=== PATIENT | female | born 1945 | race African-American/Black ===

== ENCOUNTER 2016-11-16 17:22 | Inpatient (IN) | payer OTHER ==
--- NOTE | 2016-11-16 18:43 | PDOC ---
History of Present Illness - General Chief Complaint: Chest Pain Stated Complaint: CHEST PAIN/WEAKNESS Time Seen by Provider: 11/16/16 17:48 - History of Present Illness Initial Comments: 11/16/16 20:52 Patient is a 71 year old female with a history of HTN, HLD and Arthritis who presents with right sided pain in her extremities. The patient reports severe right sided pain in her extremities worse with movement over the past 2 weeks. She has had similar symptoms in the past that responded to steroid injections. She also reports weakness on the right side of her body as well as tingling in her extremities. She reports difficulty moving her right shoulder and neck secondary to pain and reports radiation of pain from her neck down her right arm. She recently had a brain and cervical MRI performed 1 week ago which demonstrated cervical arthropathy and no signs of acute infarcts in the brain. She is scheduled to she Dr. Soto for neuro evaluation but the pain was too severe prompting her visit to the ER. She also endorses some headache. She denies fevers, chills, SOB, abdominal pain, or changes with urination or bowel movements Past History - Past Medical History Allergies/Adverse Reactions: Allergies Allergy/AdvReac Type Severity Reaction Status Date / Time No Known Allergies Allergy Verified 11/16/16 17:37 HTN: Yes Hypercholesterolemia: Yes Other medical history: vertigo - Immunization History Immunization Up to Date: Yes - Psycho/Social/Smoking Cessation Hx Suicidal Ideation: No Smoking History: Never smoked Information on smoking cessation initiated: No Hx Alcohol Use: No Drug/Substance Use Hx: No Review of Systems - Review of Systems Constitutional: No: Chills, Fever HEENTM: No: Recent change in vision, Double Vision Respiratory: No: Cough, Shortness of Breath Cardiac (ROS): No: Chest Pain, Lightheadedness, Palpitations ABD/GI: No: Constipated, Diarrhea, Nausea, Vomiting : No: Dysuria Musculoskeletal: Yes: Joint Pain, Muscle Pain, Neck Pain, Joint Stiffness Integumentary: No: Rash Neurological: Yes: Headache, Tingling, Weakness. No: Numbness *Physical Exam - Vital Signs Last Vital Signs Temp Pulse Resp BP Pulse Ox 97.9 F 99 H 18 109/65 100 11/16/16 17:24 11/16/16 17:24 11/16/16 17:24 11/16/16 17:24 11/16/16 17:24 - Physical Exam Comments: 11/16/16 21:11 General Appearance: Nourished. No Apparent Distress HEENT: EOMI, LETICIA. No Pharyngeal Erythema, Tonsillar Exudate, Tonsillar Erythema Neck: Tenderness to palpation along the right paraspinal muscles. Respiratory/Chest: Lungs Clear, Normal Breath Sounds. No Crackles, Rales, Rhonchi, Wheezing Cardiovascular: Regular Rhythm, Regular Rate. No Murmur, Gallop/S3, Gallop/S4 Gastrointestinal/Abdominal: Normal Bowel Sounds, Soft. 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 Given her physical exam and stated complaints of right sided pain and weakness worse with movement, it is likely her symptoms are due to a cervical radiculapathy. We will consult and discuss the case with Dr. Saunders with neurosurgery for evaluation. We will also send a cbc, cmp, EKG and troponin to evaluate. 11/16/16 19:22 Discussed the case with Dr. Saunders who will take a look at the patient's MRI and give us a call back. 11/16/16 19:28 Dr. Saunders came to the ED to evaluate the patient and we discussed the case. He believes that her symptoms can be attributed to spinal canal narrowing as well as the facet joint arthrapothies seen on MRI and would like to obtain a non -contrast CT. He believes that surgery is an option for her to help relieve her symptoms and is recommending admission for further management. We will contact Dr. Butt to admit the patient. 11/16/16 21:37 We discussed the case with Dr. Butt's MERCH[employer]ISE DISTRIBUTOR who accepted the admission. *DC/Admit/Observation/Transfer Diagnosis at time of Disposition: Cervical radiculopathy - Discharge Dispostion Condition at time of disposition: Guarded Admit: Yes - Referrals Referrals: Yogesh Butt MD [Primary Care Provider] -
[2016-11-16] MEDS ORDERED: morphine CARPU-JECT 4 MG/1 ML DISP.SYRIN IVPUSH ONE (18:46)
--- NOTE | 2016-11-16 19:04 | PDOC ---
Attending Attestation - Resident Resident Name: Rojas Alonso - ED Attending Attestation I have performed the following: I have examined & evaluated the patient, The case was reviewed & discussed with the resident, I agree w/resident's findings & plan, Exceptions are as noted - HPI HPI: 11/16/16 19:00 71-year-old female with history of hypertension, hyperlipidemia presents with right-sided pain. The patient reports 2 weeks of symptoms which the patient has constantly had. The patient reports she had similar symptoms several years ago which was thought to be secondary to arthritis. She had received Medrol packs and steroid injections which seemed to improve the pain. However, patient denies any injuries or trauma. States that the pain is constant and is making her feel generally weak. Occasionally the pain causes her feel short of breath and chest pain for a brief second. It is not exertional or chest tightness. The patient had an MRI last week from her primary care physician, Dr. Butt: Brain MRI of the head on November 09 demonstrates no acute infarct. Supratentorial periventricular, subcortical chronic white matter microangiopathic ischemic changes, gliosis. 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 MRI of the cervical spine demonstrates extensive degenerative cervical C2-V5. Normal signal intensity of the spinal cord. The patient was given a referral to neurology Dr. Soto. Because the pain was unbearable, the patient came into the ED for further elevation. - Physicial Exam PE: 11/16/16 19:00 GENERAL: Awake, alert, and fully oriented, in no acute distress. HEAD: No signs of trauma EYES: PERRLA, EOMI, sclera anicteric, conjunctiva clear ENT: Auricles normal inspection, hearing grossly normal, nares patent, oropharynx clear without exudates. NECK: Normal ROM, supple, no lymphadenopathy, JVD, or masses LUNGS: Breath sounds equal, clear to auscultation bilaterally. No wheezes, and no crackles HEART: Regular rate and rhythm, normal S1 and S2, no murmurs, rubs or gallops ABDOMEN: Soft, nontender, normoactive bowel sounds. No guarding, no rebound. No masses EXTREMITIES: Normal range of motion, no edema. No clubbing or cyanosis. No cords, erythema, or tenderness. TTP R arm, R trapezius, R thigh, R calf. NEUROLOGICAL: Cranial nerves II through XII intact. Normal speech, 5/5 strength upper and lower extremities. Sensation intact throughout. SKIN: Warm, Dry, normal turgor, no rashes or lesions noted. - Medical Decision Making 11/16/16 19:03 Vital Signs Temp Pulse Resp BP Pulse Ox 97.9 F 99 H 18 109/65 100 11/16/16 17:24 11/16/16 17:24 11/16/16 17:24 11/16/16 17:24 11/16/16 17:24 The patient's chest pain and shortness of breath does not appear to be cardiac or pulmonary in origin and is likely response to the patient's pain on the right side of body. The patient has significant history of arthritis and MRI demonstrates arthropathy in the neck. He may be potential that this may be muscle skeletal in origin. However, given the right-sided symptoms, we will consult neurosurgery and neurology regarding the case. If the patient demonstrates either had normal findings or uncontrollable pain, the patient should be admitted to the hospital for further evaluation.
[2016-11-16] MEDS ORDERED: morphine CARPU-JECT 4 MG/1 ML DISP.SYRIN ONE (19:06)
[2016-11-16 19:23] LABS: EOSINOPHIL 1.5 % (0-4.5); MCH 29.5 pg (25.7-33.7); MEAN CELL VOLUME 89.3 fl (80-96); RDW 13.8 % (11.6-15.6); WHITE BLOOD COUNT 7.8 K/mm3 (4.0-10.0)
[2016-11-16 19:42] LABS: INR 1.19 (0.82-1.09); PROTHROMBIN TIME (PATIENT) 13.1 SEC (9.98-11.88)
[2016-11-16 19:58] LABS: ALBUMIN 3.5 g/dl (3.4-5.0); ANION GAP 5 (8-16); BILIRUBIN,TOTAL 0.3 mg/dL (0.2-1.0); CALCIUM 8.9 mg/dL (8.5-10.1); CO2 31 mmol/L (21-32); CREATININE 1.6 mg/dL (0.55-1.02); GLUCOSE,RANDOM 98 mg/dL (74-106); SGOT/AST 16 U/L (15-37); SGPT/ALT 16 U/L (12-78); TOT PROT 6.9 g/dl (6.4-8.2)
[2016-11-16 19:59] LABS: ALK PHOS 97 U/L (45-117); CPK 79 IU/L (26-192); TROPONIN I < 0.02 ng/ml (0.00-0.05)
[2016-11-16 20:17] LABS: MEAN PLT VOLUME 11.9 fl (7.5-11.1); PLATELET COMMENT2 FEW LARGE PLTS; PLATELET COMMENT3 NO CLUMPING NOTED; PLATELET COUNT 237 K/MM3 (134-434); PLATELET ESTIMATE ADEQUATE (NORMAL)
--- NOTE | 2016-11-16 22:57 | CONSULT ---
Consult - text type - Consultation Consultation Note: Anabela Torres is a 71 year old female who presents with a chief complaint of progressive neck and upper extremity pains, particularly on the Right side. She experienced these symptoms for the first time several years ago and was diagnosed with arthritis in her neck and was treated with steroid injections. Over the past few months she has noted return and significant progression of these symptoms. She describes numbness and tingling in her hands and dropping things as well as a loss of fine motor skills. She has mechanical neck pain and all movements of her neck results in increased pain. She is able to achieve some relief from immobilization of her head and neck by lying down. She also notes some relief from heat modalities. The patient describes episodes of weakness over the Right side of her body to include both her Right arm and leg. Due to the headaches and hemibody weakness, MRI of the Brain and Cervical spine were obtained. The Brain MRI did not demonstrate any clear stroke or pathology which would account for her myelopathic symptoms, hemibody weakness or headaches. MRI Cervical demonstrates spondylosis with osteophytes and facet joint arthropathy. At C56, there is some hypertrophy of the ligamentum flavum and a disc bulge which aggravates a congenital cervical stenosis and effaces the ventral and dorsal CSF spaces and minimally deforms the contours of the cervical spinal cord. The AP diameter of the spinal canal is 9mm at this level. The Left C23 facet and several of the Right subaxial facets demonstrate significant asymmetric arthropathy which certainly could explain many of her symptoms. The patient was referred to Dr. Soto for further evaluation, however, she presented to the [facility] ER due to her pain becoming "unbearable " and being unable to wait due to severe impairment of her activities of daily living and a poor quality of life. She states on several occasions: "I cannot go on like this." I had a long discussion with the patient concerning current condition of her spine and the likely natural history. I emphasized that there is no acute emergency and that surgery is not mandatory. The spinal canal narrowing of 9mm DOES meet criteria for decompression in the setting of myelopathy, however, it is not particularly bad. Similarly, the extent of facet disease appears to be consistent with many of her mechanical/arthritic symptoms. While this facet disease does not mandate intervention, it is likely to be quite painful and likely will not spontaneously taiwo. I proposed admission for a CT of the Cervical spine to better evaluate the facets and foraminal narrowing as well as a search for other possible etiologies for her symptoms and Neurology analysis for potential for Cerebrovascular disease. The patient and family agreed with this plan of care. We obtained a CT which demonstrated multilevel spondylosis and facet arthropathy between C2 and C6. There appears to be arthrodesis of the C34 facets and uncovertebral joints. There is severe, multilevel foraminal narrowing from osteophytes. If the patient can obtain medical clearance and no other etiology for her symptoms/treatment plan can be developed, we will finalize plans to treat her with surgery. I did outline the risks, benefits and alternatives to cervical decompression and stabilization. I described focal procedures as well as those which would address multiple levels. I discussed anterior, posterior and combined approaches in great detail. Given the need to decompress and stabilize over several segments which is best treated from a dorsal approach, I feel that the best course of action would be a complete decompression and stabilization performed in one sitting. I described a treatment plan consisting of: C2-6 Laminectomies and lateral mass instrumentation. I explained that the risks included, but were not limited to: , coma, paralysis, bleeding, infection, CSF leakage possibly requiring spinal drainage or additional surgery, instrumentation migration/malfunction/malposition and failure to improve. I offered her the option of seeking another opinion or another surgeon. All questions were answered. Informed consent was obtained. I explained that she would need medical clearance prior to proceeding. The patient verbalizes an understanding of this information and asked intelligent questions.
[2016-11-17] MEDS ORDERED: morphine CARPU-JECT 2 MG/1 ML DISP.SYRIN IVPUSH ONE (05:59)
[2016-11-17] MEDS ORDERED: morphine CARPU-JECT 2 MG/1 ML DISP.SYRIN IVPUSH PRN (06:43)
[2016-11-17] MEDS ORDERED: SODIUM CHLORIDE 1,000 ML IV SCH (07:00)
[2016-11-17 08:17] LABS: BASOPHIL 0.8 % (0-2.0); EOSINOPHIL 2.3 % (0-4.5); MCH 28.7 pg (25.7-33.7); MCHC 32.1 g/dl (32.0-36.0); MEAN CELL VOLUME 89.3 fl (80-96); MEAN PLT VOLUME 11.6 fl (7.5-11.1); NEUTROPHILS 54.3 % (42.8-82.8); PLATELET COUNT 185 K/MM3 (134-434); RDW 14.2 % (11.6-15.6); WHITE BLOOD COUNT 4.5 K/mm3 (4.0-10.0)
[2016-11-17 09:13] LABS: ALBUMIN 3.3 g/dl (3.4-5.0); ALK PHOS 85 U/L (45-117); ANION GAP 7 (8-16); BILIRUBIN,TOTAL 0.6 mg/dL (0.2-1.0); CALCIUM 9.1 mg/dL (8.5-10.1); CO2 31 mmol/L (21-32); CREATININE 1.5 mg/dL (0.55-1.02); GLUCOSE,RANDOM 96 mg/dL (74-106); SGOT/AST 11 U/L (15-37); SGPT/ALT 14 U/L (12-78); TOT PROT 6.3 g/dl (6.4-8.2)
[2016-11-17] MEDS: HEPARIN NA (PORCINE) 5,000 UNITS/ML 1ML VIAL SQ SCH ×2 (10:20→23:10)
[2016-11-17 12:07] VITALS: BMI 32.0
--- NOTE | 2016-11-17 12:07 | CON.NEP ---
Consult Consult Specialty:: Nephrology ([facility]) Referred by:: Dr. Wilkinson Reason for Consultation:: ALYSON vs. CKD - History of Present Illness Chief Complaint: Right sided pain, upper and lower extremity History of Present Illness: This is a 71 year old woman with PMhx of Hypertension, Hyperlipidemia, Osteoarthritis s/p Right knee replacement who presented with right sided upper and lower extremity pain and found to have BUN/Cr of 36/1.6. Pt denies any history of kidney disease, nephrolithiasis. Has sporadic NSAID use. On ARB and HCTZ at home. No LE edema, no dysuria, flank pain, hematuria. No Recent contrast exposure. No recent abx use, skin rash. - History Source History Provided By: Patient Limitations to Obtaining History: No Limitations - Past Medical History Cardio/Vascular: Yes: HTN, Hyperlipdemia Musculoskeletal: Yes: Osteoarthritis - Alcohol/Substance Use Hx Alcohol Use: No - Smoking History Smoking history: Never smoked Have you smoked in the past 12 months: No Home Medications - Allergies Allergies/Adverse Reactions: Allergies Allergy/AdvReac Type Severity Reaction Status Date / Time No Known Allergies Allergy Verified 11/16/16 17:37 - Home Medications Home Medications: Ambulatory Orders Amlodipine Besylate 5 mg PO DAILY 11/17/16 Aspirin 81 PO DAILY 11/17/16 Atorvastatin Ca [Lipitor] 10 mg PO HS 11/17/16 Losartan-Hctz 100-25 mg Tab DAILY 11/17/16 Meclizine HCl 25 PO DAILY PRN 11/17/16 Family Disease History - Family Disease History Family History: Unremarkable Review of Systems - Review of Systems Constitutional: reports: No Symptoms Eyes: reports: No Symptoms HENT: reports: No Symptoms Neck: reports: No Symptoms Cardiovascular: reports: No Symptoms Respiratory: reports: No Symptoms Gastrointestinal: reports: No Symptoms Genitourinary: reports: No Symptoms Neurological: reports: Dizziness Endocrine: reports: No Symptoms Nephrology Consult - Height Height: 5 ft 7 in - Weight Weight: 204 lb 8 oz - BMI Body Mass Index (BMI): 32.0 - Lab Results CBC,BMP: CBC, BMP 11/17/16 07:45 11/17/16 07:45 Anion Gap: Anion Gap Anion Gap 7 (8-16) L 11/17/16 07:45 - Imaging Chest X-ray: Report Reviewed - Physical Examination Vital Signs: Vital Signs Temperature 97.7 F 11/17/16 08:46 Pulse Rate 78 11/17/16 08:46 Respiratory Rate 18 11/17/16 08:46 Blood Pressure 100/61 11/17/16 08:46 O2 Sat by Pulse Oximetry (%) 99 11/17/16 00:58 Constitutional: Yes: No Distress, Calm Eyes: Yes: Conjunctiva Clear HENT: Yes: Atraumatic, Normocephalic Neck: Yes: Tenderness Cardiovascular: Yes: Regular Rate and Rhythm Respiratory: Yes: Regular, CTA Bilaterally Gastrointestinal: Yes: Normal Bowel Sounds, Soft. 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 #ALYSON vs. CKD No prior labs available on [facility] system will get labs from PMD office Check UA, UPCR, FeNa and Renal US continue isotonic IVF for now hold ARB for now Trend BUN/Cr #Hypertension BP low/acceptable off meds Trend for now hold ARB/diuretic #Right sided pain work up as per primary and neurology avoid pain control with nsaids #Hyperlipidemia check lipid profile continue statin as needed Thank you for this referral Will follow Lukas Vickers DO Current Medications Heparin Sodium (Porcine) (Heparin -) 5,000 unit SQ BID [facility] [place] Last Admin: 11/17/16 10:20 Dose: 5,000 unit Sodium Chloride (Normal Saline -) 1,000 mls @ 75 mls/hr IV ASDIR [facility] [place] Last Admin: 11/17/16 09:00 Dose: 75 mls/hr Morphine Sulfate (Morphine Injection -) 2 mg IVPUSH Q4H PRN PRN Reason: PAIN
[2016-11-17] MEDS ORDERED: MECLIZINE HCL 25 MG TABLET (FP) PO PRN (13:13)
[2016-11-17] MEDS ORDERED: amLODIPine BESYLATE 5 MG TABLET (FP) PO SCH (13:15)
[2016-11-17] MEDS ORDERED: ASPIRIN 81 MG CHEWABLE TABLETS PO SCH (13:15)
[2016-11-17] MEDS: HYDROCHLOROTHIAZIDE 25 MG TABLET (FP) PO SCH (13:42)
[2016-11-17] MEDS: LOSARTAN POTASSIUM 50 MG TABLET (FP) PO SCH (13:42)
[2016-11-17 14:29] LABS: URINE APPEARANCE CLEAR; URINE BILIRUBIN NEGATIVE (NEGATIVE); URINE BLOOD NEGATIVE (NEGATIVE); URINE COLOR LTYELLOW; URINE GLUCOSE (UA) NEGATIVE (NEGATIVE); URINE KETONE NEGATIVE (NEGATIVE); URINE LEUK ESTERASE TRACE (NEGATIVE); URINE NITRITE NEGATIVE (NEGATIVE); URINE PROTEIN NEGATIVE (NEGATIVE); URINE UROBILINOGEN NEGATIVE mg/dL (0.2-1.0)
[2016-11-17 14:39] LABS: URINE MUCUS RARE; URINE RBC <1 /hpf (0-3); URINE WBC 3 /hpf (3-5)
[2016-11-17 15:21] LABS: URINE CREATININE 97.4 mg/dL (20-320)
--- NOTE | 2016-11-17 15:24 | HP ---
Admitting History and Physical - Primary Care Physician PCP: Yogesh Butt - Admission Chief Complaint: NUMBNESS/TINGLING/EXTREMITY WEAKNESS/RULE OUT CVA VS CERVICAL DISC DISEASE History of Present Illness: 71 YEAR OLD FEMALE WITH HTN, OLD CVA, CERVICAL DISC DISEASE PRESENTS WITH NUMBNESS/TINGLING/WEAKNESS OF EXTREMITIES. PATIENT REPORTS PROGRESSIVE WEAKNESS AND NEUROPATHY OF ARMS AND UPPER EXTREMITY. MRI FROM OCTOBER 2016 SHOWS OLD CVA AND MULTIPLE LEVELS OF CERVICAL SPINE WITH HERNIATIONS,DISC DISEASE. History Source: Patient, Medical Record - Past Medical History Cardiovascular: Yes: HTN, Hyperlipdemia Musculoskeletal: Yes: Osteoarthritis - Smoking History Smoking history: Never smoked Have you smoked in the past 12 months: No - Alcohol/Substance Use Hx Alcohol Use: No Home Medications - Allergies Allergies/Adverse Reactions: Allergies Allergy/AdvReac Type Severity Reaction Status Date / Time No Known Allergies Allergy Verified 11/16/16 17:37 - Home Medications Home Medications: Ambulatory Orders Amlodipine Besylate 5 mg PO DAILY 11/17/16 Aspirin 81 PO DAILY 11/17/16 Atorvastatin Ca [Lipitor] 10 mg PO HS 11/17/16 Losartan-Hctz 100-25 mg Tab DAILY 11/17/16 Meclizine HCl 25 PO DAILY PRN 11/17/16 Review of Systems - Review of Systems Constitutional: reports: Weakness Eyes: reports: No Symptoms HENT: reports: No Symptoms Neck: reports: No Symptoms Cardiovascular: reports: No Symptoms Respiratory: reports: No Symptoms Gastrointestinal: reports: No Symptoms Genitourinary: reports: No Symptoms Musculoskeletal: reports: Muscle Weakness Integumentary: reports: No Symptoms Neurological: reports: Pre-Existing Deficit, Weakness Endocrine: reports: No Symptoms Hematology/Lymphatic: reports: No Symptoms Psychiatric: reports: No Symptoms Physical Examination Vital Signs: Vital Signs Temperature 99.2 F 11/17/16 13:18 Pulse Rate 84 11/17/16 13:18 Respiratory Rate 18 11/17/16 13:18 Blood Pressure 105/51 11/17/16 13:18 O2 Sat by Pulse Oximetry (%) 99 11/17/16 09:00 Constitutional: Yes: Moderate Distress Eyes: Yes: WNL HENT: Yes: WNL Neck: Yes: WNL Cardiovascular: Yes: WNL Respiratory: Yes: WNL Gastrointestinal: Yes: WNL Musculoskeletal: Yes: Muscle Weakness Extremities: Yes: WNL Edema: No Peripheral Pulses WNL: Yes Integumentary: Yes: WNL Wound/Incision: Yes: Clean/Dry Neurological: Yes: Loss of Sensation, Numbness, Pre-Existing Deficit, Unsteady Gait, Weakness ...Motor Strength: LUE, LLE, RUE, RLE Psychiatric: Yes: Other Labs: CBC, BMP 11/17/16 07:45 11/17/16 07:45 Imaging - Results Cat Scan: Report Reviewed Problem List - Problems (1) Acute kidney injury Code(s): N17.9 - ACUTE KIDNEY FAILURE, UNSPECIFIED (2) CKD (chronic kidney disease) Code(s): N18.9 - CHRONIC KIDNEY DISEASE, UNSPECIFIED Qualifiers: Chronic kidney disease stage: stage 2 (mild) Qualified Code(s): N18.2 - Chronic kidney disease, stage 2 (mild) (3) Cervical radiculopathy Code(s): M54.12 - RADICULOPATHY, CERVICAL REGION (4) Combined hyperlipidemia Code(s): E78.2 - MIXED HYPERLIPIDEMIA (5) Hypertension Code(s): I10 - ESSENTIAL (PRIMARY) HYPERTENSION Qualifiers: Hypertension type: essential hypertension Qualified Code(s): I10 - Essential (primary) hypertension Assessment/Plan PATIENT IS MEDICALLY CLEARED FOR CERVICAL SPINE SURGERY NO HISTORY OF CARDIAC DISEASE BP IS LOW IVF GIVEN HOLD BP MEDS FOR SBP LESS THAN 110MM/HG OR DBP LESS THAN 60MM/HG SNF AND PT [facility] ON DISCHARGE
[2016-11-17] MEDS ORDERED: CYCLOBENZAPRINE HCL 10 MG TABLET (FP) PO PRN (16:21)
--- NOTE | 2016-11-17 17:00 | EKG ---
Test Reason : Blood Pressure : / mmHG Vent. Rate : 080 BPM Atrial Rate : 080 BPM P-R Int : 134 ms QRS Dur : 104 ms QT Int : 376 ms P-R-T Axes : 073 026 035 degrees QTc Int : 433 ms NORMAL SINUS RHYTHM BIATRIAL ENLARGEMENT INCOMPLETE RIGHT BUNDLE BRANCH BLOCK ABNORMAL ECG WHEN COMPARED WITH ECG OF 16-NOV-2016 17:35, NO SIGNIFICANT CHANGE WAS FOUND Confirmed by SANDOR PADRON MD ([id number]) on 11/17/2016 5:00:29 PM Also confirmed by SANDOR PADRON MD ([id number]) on 11/17/2016 5:03:09 PM Referred By: LA ALSTON Confirmed By:SANDOR PADRON MD
--- NOTE | 2016-11-17 17:47 | EKG ---
Test Reason : Blood Pressure : / mmHG Vent. Rate : 094 BPM Atrial Rate : 094 BPM P-R Int : 126 ms QRS Dur : 090 ms QT Int : 354 ms P-R-T Axes : 074 -03 056 degrees QTc Int : 442 ms NORMAL SINUS RHYTHM BIATRIAL ENLARGEMENT RSR' OR QR PATTERN IN V1 SUGGESTS RIGHT VENTRICULAR CONDUCTION DELAY ABNORMAL ECG NO PREVIOUS ECGS AVAILABLE REPEAT EKG IF CLINICALLY INDICATED Confirmed by SANDOR PADRON MD ([id number]) on 11/17/2016 5:47:03 PM Referred By: Confirmed By:SANDOR PADRON MD
--- NOTE | 2016-11-17 19:33 | CONSULT ---
Consult - text type - Consultation Consultation Note: NEUROLOGY CONSULTATION is greatly appreciated: Events reviewed. Patient exsamined in the presence of two of her daughters who provided additional history. This 71 yo RH woman with h/o HTN, OA and Chol on norvasc, losartan, HCTZ, and Lipitor. s/p B/L TKR's. Walking is better but nocturnal knee pains are unchanged. Episodic headaches for most of her adult life. These have increased in frequency and now occur almost daily. Usually Right hemicranial headaches involving synagogue and neck with throbbing neck pain towards the Left shoulder. Sometimes right-sided. +Nausea (almost daily), photophobia, phonophobia and dizziness. + FH of headaches in all 3 daughters. Chronic migrating pains and paresthesia in both arms and both legs, worst at night, interrupting sleep. Daughters have this as well. For the last few weeks Right shoulder pains are particularly severe at night and are associated with numbness and tingling in the arm and hand. Now admitted with right-sided chest pains that have improved. Recent MRI of the brain is normal. MRI of the Cervical spine shows moderate, diffuse spondylitic changes. MEGHANA: Normal neck ROM. No bruits. Cor: Reg. NEURO: MS/speech: Normal CN II-XII: normal Motor: No drift. Formal muscle testing reveals normal strength throughout. Normal reflexes except AJ's. Toes downgoing. Coord: Normal Sensory Normal. Gait: Antalgic to the knees. IMP: Essentially normal neurological exam. No clinical evidence for cervical radiculopathy. Migraine headaches are the probable cause of the throbbing neck pain. 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 SUGGEST: No surgery. Check Fe++, TIBC, Ferritin. D/C flexoril, mecliziane, gabapentin, narcotics. Check orthostatic BP's. Begin nadolol 40 mg qd for migraine prophylaxis and empirically d/ c norvasc. Begin pramipexole .125 mg qHS x 2 days then .25 q hS Neuro f/u as out patient. Thank you very much, Gerry Soto MD
[2016-11-17] MEDS ORDERED: PT OWN MED DRAWER 7, Y5N ONE (20:51)
[2016-11-17] MEDS ORDERED: GABAPENTIN 100 MG CAPSULE (FP) PO SCH (22:00)
[2016-11-17] MEDS ORDERED: ATORVASTATIN CA 10 MG TABLET (FP) PO SCH (22:00)
[2016-11-17] MEDS ORDERED: PRAMIPEXOLE DIHYDROCHLORIDE 0.125 MG TABLET PO SCH (22:00)
[2016-11-18 08:06] LABS: BASOPHIL 0.8 % (0-2.0); EOSINOPHIL 2.9 % (0-4.5); MCHC 32.6 g/dl (32.0-36.0); MEAN CELL VOLUME 88.8 fl (80-96); MEAN PLT VOLUME 10.9 fl (7.5-11.1); NEUTROPHILS 48.8 % (42.8-82.8); PLATELET COUNT 173 K/MM3 (134-434); WHITE BLOOD COUNT 3.5 K/mm3 (4.0-10.0)
[2016-11-18 08:18] LABS: ALBUMIN 3.2 g/dl (3.4-5.0); ANION GAP 6 (8-16); CALCIUM 8.4 mg/dL (8.5-10.1); CO2 31 mmol/L (21-32); GLUCOSE,RANDOM 96 mg/dL (74-106); MAGNESIUM 2.5 mg/dL (1.8-2.4); SGOT/AST 9 U/L (15-37)
[2016-11-18 08:20] LABS: ALK PHOS 81 U/L (45-117); BILIRUBIN,TOTAL 0.8 mg/dL (0.2-1.0); SGPT/ALT 13 U/L (12-78); TOT PROT 6.2 g/dl (6.4-8.2)
[2016-11-18] MEDS ORDERED: NADOLOL 40 MG TABLET (FP) PO SCH (10:00)
--- NOTE | 2016-11-18 10:18 | DS ---
Physical Examination Vital Signs: Vital Signs Temperature 98.3 F 11/18/16 06:00 Pulse Rate 73 11/18/16 06:00 Respiratory Rate 18 11/18/16 06:00 Blood Pressure 110/66 11/18/16 06:00 O2 Sat by Pulse Oximetry (%) 98 11/17/16 21:00 Constitutional: Yes: Mild Distress Eyes: Yes: WNL HENT: Yes: WNL Neck: Yes: WNL Cardiovascular: Yes: WNL Respiratory: Yes: WNL Gastrointestinal: Yes: WNL Renal/: Yes: WNL Musculoskeletal: Yes: Back Pain, Muscle Weakness Extremities: Yes: WNL Edema: No Peripheral Pulses WNL: Yes Integumentary: Yes: WNL Wound/Incision: Yes: Clean/Dry Neurological: Yes: Paresthesia ...Motor Strength: LUE, RUE Psychiatric: Yes: WNL Labs: CBC, BMP 11/18/16 06:50 11/18/16 06:50 Discharge Summary Reason For Visit: CERVICAL RADICULOPATHY Current Active Problems Acute kidney injury (Acute) CKD (chronic kidney disease) (Acute) Cervical radiculopathy (Acute) Combined hyperlipidemia (Acute) Hypertension (Acute) Procedures: Principal: CT SCAN Other Procedures: LABS Hospital Course: ADMITTED WITH ACUTE NEUROPATHY CERVICAL DISC DISEASE, TREATED WITH PAIN MEDS, IV AND PO, IVF, SEEN BY NEUROLOGU AND NEUROSURGERY, PATIENT HAS OPTED FOR A MORE CONSERVATIVE APPROACH FOR TREATMENT, NO SURGERY AT THIS TIME, F/U WITH DR DILLARD TODAY OR TOMORROW OUTPATIENT. Condition: Stable - Instructions Diet, Activity, Other Instructions: LOW SODIUM SEE DR DILLARD TODAY OR TOMORROW DR BUTT IN 1 WEEK Referrals: Yogesh Butt MD [Primary Care Provider] - Disposition: VNS/HOME HEALTH CARE - Home Medications Comprehensive Discharge Medication List: Ambulatory Orders Amlodipine Besylate 5 mg PO DAILY 11/17/16 Aspirin 81 PO DAILY 11/17/16 Atorvastatin Ca [Lipitor] 10 mg PO HS 11/17/16 Losartan-Hctz 100-25 mg Tab DAILY 11/17/16 Meclizine HCl 25 PO DAILY PRN 11/17/16 Amlodipine Besylate [Norvasc -] 5 mg PO DAILY tablet 11/18/16 Aspirin [ASA -] 81 mg PO DAILY tab.chew 11/18/16 Atorvastatin Ca [Lipitor] 10 mg PO HS tablet 11/18/16 Meclizine HCl [Antivert -] 25 mg PO DAILY PRN #0 tablet MDD 3 11/18/16 Nadolol [Corgard -] 40 mg PO DAILY #60 tablet 11/18/16 Pramipexole Dihydrochloride [Mirapex -] 0.125 mg PO HS #30 tablet 11/18/16
[2016-11-18 10:24] LABS: CHOLESTEROL 160 mg/dL (50-200)
[2016-11-18] MEDS ORDERED: PT OWN MED DRAWER 7, Y5N ONE (10:59)
[2016-11-18 11:05] VITALS: BP 120/71; TEMP 98.6
[2016-11-18 11:08] VITALS: PULSE 80
[2016-11-18] MEDS: HYDROCHLOROTHIAZIDE 25 MG TABLET (FP) PO SCH (11:09)
[2016-11-18] MEDS: HEPARIN NA (PORCINE) 5,000 UNITS/ML 1ML VIAL SQ SCH (11:09)
[2016-11-18] MEDS: LOSARTAN POTASSIUM 50 MG TABLET (FP) PO SCH (11:09)
== END 2016-11-18 13:47 | disposition home health service (06) | DRG 552 ==
LOC: JER 17:22 → JERBED 21:08 → J5S 23:03
PROVIDERS: ADMIT Family Medicine; ATTEND Family Medicine
DX: M47.892 Other spondylosis, cervical region (principal); N17.9 Acute kidney failure, unspecified; M54.12 Radiculopathy, cervical region; I10 Essential (primary) hypertension; M17.11 Unilateral primary osteoarthritis, right knee; I12.9 Hypertensive chronic kidney disease with stage 1 through stage 4 chronic kidney disease, or unspecified chronic kidney disease; N18.9 Chronic kidney disease, unspecified; E78.2 Mixed hyperlipidemia; G43.809 Other migraine, not intractable, without status migrainosus; G62.9 Polyneuropathy, unspecified; M50.30 Other cervical disc degeneration, unspecified cervical region; G25.81 Restless legs syndrome; Z86.73 Personal history of transient ischemic attack (TIA), and cerebral infarction without residual deficits; Z96.651 Presence of right artificial knee joint
CPT/HCPCS: 36415; 71020-TC; 72125-TC; 76775-TC; 80053; 80061; 81003; 81015; 82436; 82570; 83036; 83721; 83735; 84100; 84133; 84156; 84300; 84484; 84540; 85025; 85610; 85651; 86140; 93005; 93010; 93306-TC; 99282-25; J1644

== ENCOUNTER 2017-02-19 11:36 | Inpatient (IN) | payer OTHER ==
[2017-02-19 11:47] VITALS: BMI 33.3
--- NOTE | 2017-02-19 13:09 | PDOC ---
History of Present Illness - General History Source: Patient - History of Present Illness Initial Comments: 02/19/17 16:27 The patient is a 71 year old female, with a significant past medical history of hypertension, hyperlipidemia, cervical ridiculopathy, vertigo, CKD, and chronic constipation, who presents to the emergency department with chest pain for approximately 2 weeks. The patient reports right sided chest pain radiating into her right shoulder, biceps, and right upper back. Patient reports her pain is exacerbated with motion and states it is difficult to put on clothing or sleep at night secondary to pain. Patient reports pain worsened with exertion but denies any diaphoresis, palpitations, numbness, tingling, or lower extremity edema. Patient reports she has had this pain intermittently for 4 months, but it has worsened during the past 2 weeks. Patient states she was at Dr. White office earlier today for evaluation of the pain, but left to the ER before she was seen, because she could not tolerate the pain. Patient reports taking Tylenol and meloxicam with minimal relief of symptoms. She had MRI and CT of her cervical spine in the past to evaluate this pain. She denies any fever , chills, cough, SOB, headache, dizziness, lightheadedness, ear ringing, or changes in vision. She denies any abdominal pain, nausea, vomiting, diarrhea, constipation, or urinary sxs. She denies any recent travel or sick contacts. Allergies: NKDA Past Surgical History: None reported Social History: Occasional ETOH use. Non smoker. No recreational drug use. PCP: Dr. Butt <Sherry Bush - Last Filed: 02/19/17 16:28> <Mark Buckley - Last Filed: 02/19/17 19:59> - General Chief Complaint: Chest Pain Stated Complaint: RT SIDE PAIN Past History <Sherry Bush - Last Filed: 02/19/17 16:28> - Past Medical History Anemia: No Asthma: No Cancer: No Cardiac Disorders: No CVA: No COPD: No CHF: No Dementia: No Diabetes: No GI Disorders: No Disorders: No HTN: Yes Hypercholesterolemia: Yes Seizures: No - Immunization History Immunization Up to Date: Yes - Suicide/Smoking/Psychosocial Hx Smoking History: Never smoked Have you smoked in the past 12 months: No Hx Alcohol Use: No (QUIT 2 YEARS AGO) Drug/Substance Use Hx: No Substance Use Type: None <Mark Buckley - Last Filed: 02/19/17 19:59> - Past Medical History Allergies/Adverse Reactions: Allergies Allergy/AdvReac Type Severity Reaction Status Date / Time No Known Allergies Allergy Verified 02/19/17 11:47 Home Medications: Ambulatory Orders Amlodipine Besylate 5 mg PO DAILY 11/17/16 Atorvastatin Ca [Lipitor] 10 mg PO HS 11/17/16 Losartan-Hctz 100-25 mg Tab DAILY 11/17/16 Aspirin [ASA -] 81 mg PO DAILY tab.chew 11/18/16 Meclizine HCl [Antivert -] 25 mg PO DAILY PRN #0 tablet MDD 3 11/18/16 Review of Systems - Review of Systems Able to Perform ROS?: Yes Comments:: 02/19/17 16:27 GENERAL/CONSTITUTIONAL: Yes right sided weakness. No fever or chills. HEAD, EYES, EARS, NOSE AND THROAT: No change in vision. No ear pain or discharge. No sore throat. GASTROINTESTINAL: No nausea, vomiting, diarrhea or constipation. GENITOURINARY: No dysuria, frequency, or change in urination. CARDIOVASCULAR: Yes chest pain and shortness of breath. RESPIRATORY: No cough, wheezing, or hemoptysis. MUSCULOSKELETAL: Yes right sided neck/shoulder/chest/upper back pain. No other joint or muscle swelling or pain. SKIN: No rash NEUROLOGIC: Yes right sided weakness/pain. No headache, vertigo, loss of consciousness, numbness or tingling. ENDOCRINE: No increased thirst. No abnormal weight change. HEMATOLOGIC/LYMPHATIC: No anemia, easy bleeding, or history of blood clots. ALLERGIC/IMMUNOLOGIC: No hives or skin allergy. <Sherry Bush - Last Filed: 02/19/17 16:28> *Physical Exam - Vital Signs Last Vital Signs Temp Pulse Resp BP Pulse Ox 98.8 F 66 18 147/89 98 02/19/17 11:45 02/19/17 11:45 02/19/17 11:45 02/19/17 11:45 02/19/17 11:45 - Physical Exam Comments: 02/19/17 16:27 GENERAL: Awake, alert, and fully oriented, in no acute distress HEAD: No signs of trauma EYES: PERRLA, EOMI, sclera anicteric, conjunctiva clear ENT: Auricles normal inspection, hearing grossly normal, nares patent, oropharynx clear without exudates. Moist mucosa NECK: Normal ROM, supple, no lymphadenopathy, JVD, or masses LUNGS: Breath sounds equal, clear to auscultation bilaterally. No wheezes, and no crackles HEART: Regular rate and rhythm, normal S1 and S2, no murmurs, rubs or gallops ABDOMEN: Soft, nontender, normoactive bowel sounds. No guarding, no rebound. No masses EXTREMITIES: Tenderness to palpation to the right chest wall and trapezoid region, pain with active/passive range of motion, but able to fully range her right arm. Normal range of motion at the remainder of the extremities, no edema. No clubbing or cyanosis. No cords, erythema, or tenderness BACK: No midline spinal tenderness in cervical/thoracic/lumbar region NEUROLOGICAL: Normal speech, cranial nerves intact, negative pronator drift, 5/ 5 strength in all 4 extremities, normal sensation to light touch in all 4 extremities, normal cerebellar exam, normal gait, normal reflexes and tone SKIN: Warm, Dry, normal turgor, no rashes or lesions noted. <Bush,Giomilsy - Last Filed: 02/19/17 16:28> - Vital Signs Last Vital Signs Temp Pulse Resp BP Pulse Ox 98.8 F 66 18 147/89 98 02/19/17 11:45 02/19/17 11:45 02/19/17 11:45 02/19/17 11:45 02/19/17 11:45 <Mark Buckley - Last Filed: 02/19/17 19:59> Heart Score/ECG Review - History History: Slightly suspicious - Electrocardiogram EKG: Non specific repolarization disturbance - Age Age: >/= 65 - Risk Factors Risk Factors Heart Score: Yes Hx Hypercholesterolemia, Yes Hx Hypertension, Yes Hx Obesity Based on the list above the patient has:: >/=3 risk factors or Hx atherosclerotic disease - Troponin Troponin: </= normal limit - Score Heart Score - Total: 5 <Mark Buckley - Last Filed: 02/19/17 19:59> ED Treatment Course - LABORATORY CBC & Chemistry Diagram: 02/19/17 13:41 02/19/17 13:41 - ADDITIONAL ORDERS Additional order review: Laboratory Results 02/19/17 02/19/17 02/19/17 13:41 13:41 13:41 Sodium 145 Potassium 3.7 Chloride 105 Carbon Dioxide 31 Anion Gap 9 BUN 10 D Creatinine 0.6 D Creat Clearance w eGFR > 60 Random Glucose 105 Calcium 8.8 Magnesium 2.2 Total Bilirubin 0.5 D AST 13 L D ALT 19 D Alkaline Phosphatase 87 Troponin I < 0.02 B-Natriuretic Peptide 379.77 H Total Protein 7.0 Albumin 3.8 02/19/17 13:41 RBC 4.02 MCV 90.8 MCHC 32.2 RDW 13.8 MPV 11.6 H Neutrophils % 56.4 Lymphocytes % 33.9 Monocytes % 7.4 Eosinophils % 1.6 Basophils % 0.7 - RADIOLOGY Radiograph Interpretation: 02/19/17 14:38 EXAM: CXR INTERPRETED BY: Dr. Vidal REVIEWED BY: Dr. Buckley IMPRESSION: No consolidation or focal opacity to suggest pneumonia. No evidence of pulmonary vascular congestion or pleural effusion. Please correlate clinically. <Sherry Bush - Last Filed: 02/19/17 16:28> - LABORATORY CBC & Chemistry Diagram: 02/19/17 13:41 02/19/17 13:41 <Mark Buckley - Last Filed: 02/19/17 19:59> Medical Decision Making - Medical Decision Making 02/19/17 14:37 First call placed to Dr. Butt at 14:37. Awaiting call back. Second call placed to Dr. Butt at 15:10. Awaiting call back. Case discussed with Dr. Butt at 15:20. Requested Dr. Arellano for a consult. First call placed to Dr. Arellano at 15:24. Awaiting call back. Case discussed with Dr. Arellano at 15:29. <Sherry Bush - Last Filed: 02/19/17 16:28> - Medical Decision Making 02/19/17 15:23 71-year-old female multiple medical problems presents with right-sided chest pain. Vitals are unremarkable. On exam, pain is reproducible. Although pain is likely musculoskeletal, may be cervical radiculopathy however the patient does have ACS risk factors. First set of labs including troponin is negative. Chest x -ray has no acute findings. Patient has been given Toradol for pain with minimal relief. Case discussed with Dr. Butt, given the patient's heart score is 5, we will admit for ACS evaluation, possible stress test, as well as for pain control. Will discuss case with neurosurgeon Dr. Elena for possible injecion/surgery , awaiting a call back Case discussed in detail with admitting physician including history, physical exam and ancillary studies. Admitting physician has assumed care for the patient, will follow all pending diagnostics and will complete the evaluation and treatment. <Mark Buckley - Last Filed: 02/19/17 19:59> *DC/Admit/Observation/Transfer - Attestations Scribe Attestion: 02/19/17 14:40 Documentation prepared by Sherry Bush, acting as program medical director for Mark Buckley MD. <Sherry Bush - Last Filed: 02/19/17 16:28> - Discharge Dispostion Admit: Yes - Attestations Physician Attestion: 02/19/17 15:26 I, Dr. Mark Buckley MD, attest that this document has been prepared under my direction and personally reviewed by me in its entirety. I further attest, that it accurately reflects all work, treatment, procedures and medical decision -making performed by me. <Mark Buckley - Last Filed: 02/19/17 19:59> Diagnosis at time of Disposition: Cervical radiculopathy - Discharge Dispostion Condition at time of disposition: Stable
[2017-02-19 13:54] LABS: BASOPHIL 0.7 % (0-2.0); EOSINOPHIL 1.6 % (0-4.5); MCH 29.3 pg (25.7-33.7); MCHC 32.2 g/dl (32.0-36.0); MEAN CELL VOLUME 90.8 fl (80-96); MEAN PLT VOLUME 11.6 fl (7.5-11.1); NEUTROPHILS 56.4 % (42.8-82.8); PLATELET COUNT 162 K/MM3 (134-434); RDW 13.8 % (11.6-15.6); WHITE BLOOD COUNT 4.3 K/mm3 (4.0-10.0)
[2017-02-19 14:29] LABS: CREATININE 0.6 mg/dL (0.55-1.02); GLUCOSE,RANDOM 105 mg/dL (74-106)
[2017-02-19 14:30] LABS: ALBUMIN 3.8 g/dl (3.4-5.0); ALK PHOS 87 U/L (45-117); ANION GAP 9 (8-16); BILIRUBIN,TOTAL 0.5 mg/dL (0.2-1.0); CALCIUM 8.8 mg/dL (8.5-10.1); CO2 31 mmol/L (21-32); MAGNESIUM 2.2 mg/dL (1.8-2.4); SGOT/AST 13 U/L (15-37); SGPT/ALT 19 U/L (12-78)
[2017-02-19] MEDS ORDERED: KETOROLAC TROMETHAMINE 30 MG/1 ML VIAL IVPUSH ONE (15:20)
[2017-02-19] MEDS ORDERED: ONDANSETRON *ODT* 4 MG TABLET SL PRN (15:26)
[2017-02-19] MEDS ORDERED: ACETAMINOPHEN 325 MG TABLET (FP) PO PRN (15:26)
[2017-02-19] MEDS ORDERED: KETOROLAC TROMETHAMINE 30 MG/1 ML VIAL ONE (15:37)
--- NOTE | 2017-02-19 16:18 | CON.CARD ---
Consult Consult Specialty:: Cardiology Reason for Consultation:: Chest Pain - History of Present Illness Chief Complaint: Right sided neck and chest pain History of Present Illness: This is a 71 year old female with a PMH of HTN and presents right sided chest and neck pain. The pain was slightly relieved by Toradol. The pain is reproducible by palpating the chest wall. The pain is non exertional and extend fron the right side of her head to her right shoulder. She is a non smoker, non diabetic, and there is no significant history for early CAD. CXR is unremarkable EKG NSR with APC's, RSR' pattern in V1 and NSSTTW changes. Troponin is negative x1 - Past Medical History Cardio/Vascular: Yes: HTN, Hyperlipdemia Musculoskeletal: Yes: Osteoarthritis - Alcohol/Substance Use Hx Alcohol Use: No (QUIT 2 YEARS AGO) - Smoking History Smoking history: Never smoked Have you smoked in the past 12 months: No Home Medications - Allergies Allergies/Adverse Reactions: Allergies Allergy/AdvReac Type Severity Reaction Status Date / Time No Known Allergies Allergy Verified 02/19/17 11:47 - Home Medications Home Medications: Ambulatory Orders Amlodipine Besylate 5 mg PO DAILY 11/17/16 Atorvastatin Ca [Lipitor] 10 mg PO HS 11/17/16 Losartan-Hctz 100-25 mg Tab DAILY 11/17/16 Aspirin [ASA -] 81 mg PO DAILY tab.chew 11/18/16 Meclizine HCl [Antivert -] 25 mg PO DAILY PRN #0 tablet MDD 3 11/18/16 Review of Systems Unable to obtain ROS, reason: As per HPI Vital Signs: Vital Signs Temperature 98.8 F 02/19/17 11:45 Pulse Rate 66 02/19/17 11:45 Respiratory Rate 18 02/19/17 11:45 Blood Pressure 147/89 02/19/17 11:45 O2 Sat by Pulse Oximetry (%) 98 02/19/17 11:45 Constitutional: Yes: No Distress Respiratory: Yes: CTA Bilaterally Gastrointestinal: Yes: Soft Cardiovascular: Yes: Regular Rate and Rhythm (NL S1S2, no MRHG) JVD: No Extremities: Yes: WNL Edema: No Neurological: Yes: Alert, Oriented (NL S1S2, no MRHG) - Other Data Labs, Other Data: CBC, BMP 02/19/17 13:41 02/19/17 13:41 Troponin, BNP 02/19/17 02/19/17 13:41 13:41 Troponin I < 0.02 B-Natriuretic Peptide 379.77 H Troponin, BNP 02/19/17 02/19/17 13:41 13:41 Troponin I < 0.02 B-Natriuretic Peptide 379.77 H Assessment/Plan Chest Pain: Presentation, physical exam, initial labs, and EKG all strongly suggest a non cardiac cause for her chest pain. Can complete cardiac enzyme sets but do not see a need for further cardiac testing at this time. Would continue at home medications for HTN and HLD including: Amlodipine Besylate 5 mg PO DAILY 11/17/16 Atorvastatin Ca [Lipitor] 10 mg PO HS 11/17/16 Losartan-Hctz 100-25 mg Tab DAILY 11/17/16 Aspirin [ASA -] 81 mg PO DAILY tab.chew 11/18/16
[2017-02-19] MEDS: LOSARTAN 50MG/HCTZ 12.5MG 1 TAB (FP) PO SCH (16:22)
--- NOTE | 2017-02-19 16:32 | EKG ---
Test Reason : Blood Pressure : / mmHG Vent. Rate : 075 BPM Atrial Rate : 088 BPM P-R Int : 158 ms QRS Dur : 100 ms QT Int : 392 ms P-R-T Axes : 064 021 018 degrees QTc Int : 437 ms POOR DATA QUALITY, INTERPRETATION MAY BE ADVERSELY AFFECTED SINUS RHYTHM WITH PREMATURE ATRIAL COMPLEXES INCOMPLETE RIGHT BUNDLE BRANCH BLOCK CANNOT RULE OUT ANTERIOR INFARCT , AGE UNDETERMINED ABNORMAL ECG WHEN COMPARED WITH ECG OF 17-NOV-2016 15:45, PREMATURE ATRIAL COMPLEXES ARE NOW PRESENT MINIMAL CRITERIA FOR ANTERIOR INFARCT ARE NOW PRESENT T WAVE AMPLITUDE HAS DECREASED IN ANTERIOR LEADS Confirmed by MD BEA, HAY ([id number]) on 02/19/2017 4:32:01 PM Referred By: Confirmed By:HAY FIGUEREDO MD
[2017-02-19 20:48] LABS: CPK 125 IU/L (26-192); TROPONIN I < 0.02 ng/ml (0.00-0.05)
[2017-02-19] MEDS: ATORVASTATIN CA 20 MG TABLET (FP) PO SCH (21:39)
[2017-02-19] MEDS: morphine SULFATE 4 MG/ML VIAL IVPUSH PRN (22:46)
[2017-02-20] MEDS: morphine SULFATE 4 MG/ML VIAL IVPUSH PRN ×3 (06:58→22:15)
[2017-02-20 08:37] LABS: CHOLESTEROL 182 mg/dL (50-200)
[2017-02-20] MEDS: amLODIPine BESYLATE 5 MG TABLET (FP) PO SCH (09:58)
[2017-02-20] MEDS ORDERED: DEXAMETHASONE SOD PHOSPHATE 10 MG/1 ML VIAL IM ONE (10:00)
[2017-02-20] MEDS: LOSARTAN 50MG/HCTZ 12.5MG 1 TAB (FP) PO SCH (11:44)
--- NOTE | 2017-02-20 12:05 | HP ---
Admitting History and Physical - Admission History of Present Illness: 71 year old female, with a significant past medical history of hypertension, hyperlipidemia, cervical ridiculopathy, vertigo, CKD, and chronic constipation, who presents to the emergency department with chest pain for approximately 2 weeks. The patient reports right sided chest pain radiating into her right shoulder, biceps, and right upper back. Patient reports her pain is exacerbated with motion and states it is difficult to put on clothing or sleep at night secondary to pain. Patient reports pain worsened with exertion but denies any diaphoresis, palpitations, numbness, tingling, or lower extremity edema. Patient reports she has had this pain intermittently for 4 months, but it has worsened during the past 2 weeks. Patient states she was at Dr. White office earlier today for evaluation of the pain, but left to the ER before she was seen , because she could not tolerate the pain. Patient reports taking Tylenol and meloxicam with minimal relief of symptoms. She had MRI and CT of her cervical spine in the past to evaluate this pain. She denies any fever, chills, cough, SOB, headache, dizziness, lightheadedness, ear ringing, or changes in vision. She denies any abdominal pain, nausea, vomiting, diarrhea, constipation, or urinary sxs. She denies any recent travel or sick contacts. 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: Vertigo Cardiovascular: Yes: HTN, Hyperlipdemia Gastrointestinal: Yes: Constipation Renal/: Yes: Renal Inusuff Musculoskeletal: Yes: Osteoarthritis, Other (DISCOGENIC DISEASE) - Smoking History Smoking history: Never smoked Have you smoked in the past 12 months: No - Alcohol/Substance Use Hx Alcohol Use: No (QUIT 2 YEARS AGO) Home Medications - Allergies Allergies/Adverse Reactions: Allergies Allergy/AdvReac Type Severity Reaction Status Date / Time No Known Allergies Allergy Verified 02/19/17 11:47 - Home Medications Home Medications: Ambulatory Orders Amlodipine Besylate 5 mg PO DAILY 11/17/16 Atorvastatin Ca [Lipitor] 10 mg PO HS 11/17/16 Losartan-Hctz 100-25 mg Tab DAILY 11/17/16 Aspirin [ASA -] 81 mg PO DAILY tab.chew 11/18/16 Meclizine HCl [Antivert -] 25 mg PO DAILY PRN #0 tablet MDD 3 11/18/16 Review of Systems - Review of Systems Constitutional: reports: Weakness. denies: Fever Cardiovascular: reports: Chest Pain (RT SIDED) Respiratory: denies: SOB, SOB on Exertion Genitourinary: reports: No Symptoms Musculoskeletal: reports: Back Pain, Extremity Pain (RT ARM) Neurological: reports: Numbness (RIGHT SIDE) Physical Examination Vital Signs: Vital Signs Temperature 99.7 F H 02/20/17 11:07 Pulse Rate 68 02/20/17 11:07 Respiratory Rate 20 02/20/17 11:07 Blood Pressure 130/81 02/20/17 11:07 O2 Sat by Pulse Oximetry (%) 98 02/19/17 21:04 Cardiovascular: Yes: Regular Rate and Rhythm Respiratory: Yes: Regular, CTA Bilaterally Gastrointestinal: Yes: Normal Bowel Sounds, Soft Edema: No Neurological: Yes: Alert, Oriented, Weakness (RIGHT ARM PAIN ON MOVEMENT OF NECK PARSPINAL MUSCLE TENDERNESS) Labs: CBC, BMP 02/19/17 13:41 02/19/17 13:41 Imaging - Results MRI: Report Reviewed Problem List - Problems (1) Cervical radiculopathy Assessment/Plan: MRI RESULTS NOTED--FLUID OF UNKNOWN ETIOLOGY DOSE OF DECADRON N/S CONSULT ESR/CRP Code(s): M54.12 - RADICULOPATHY, CERVICAL REGION (2) CKD (chronic kidney disease) Assessment/Plan: Laboratory Tests 02/19/17 13:41 BUN 10 D Creatinine 0.6 D STABLE NOW Code(s): N18.9 - CHRONIC KIDNEY DISEASE, UNSPECIFIED Qualifiers: Chronic kidney disease stage: stage 2 (mild) Qualified Code(s): N18.2 - Chronic kidney disease, stage 2 (mild) (3) Hypertension Assessment/Plan: Vital Signs Period Temp Pulse Resp BP Sys/Buck Pulse Ox Last 24 Hr 97.4 F-99.7 F 68-103 18-20 127-148/79-92 97-98 MONITOR Code(s): I10 - ESSENTIAL (PRIMARY) HYPERTENSION Qualifiers: Hypertension type: essential hypertension Qualified Code(s): I10 - Essential (primary) hypertension (4) Chest pain Assessment/Plan: ATYPICAL MAYBE DUE TO DISC DS CE NEGATIVE CARDIO CONSULT NOTED Code(s): R07.9 - CHEST PAIN, UNSPECIFIED
--- NOTE | 2017-02-20 13:20 | CON.NEURO ---
Consult - History of Present Illness History of Present Illness: 71 year old female with past medical history of hypertension, hyperlipidemia, and ckd. She was recently diagnosed with MIgraine and restless leg syndrome. Patient also have left arm pain in november and that seemd to be improved. for past three weeks she has been having right shoulder neck pain. It is much worse in night. She felt weak in her right arm. She denies any trauma, fever or cancer. She had mri of c spine done and it was unchaged and there is small streak of fluid in prevertebral region of unknown etiology. She continue to have severe pain in right shoulder pain. 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: Vertigo Cardio/Vascular: Yes: HTN, Hyperlipdemia Gastrointestinal: Yes: Constipation Renal/: Yes: Renal Inusuff Musculoskeletal: Yes: Osteoarthritis, Other (DISCOGENIC DISEASE) - Alcohol/Substance Use Hx Alcohol Use: No (QUIT 2 YEARS AGO) - Smoking History Smoking history: Never smoked Have you smoked in the past 12 months: No Home Medications - Allergies Allergies/Adverse Reactions: Allergies Allergy/AdvReac Type Severity Reaction Status Date / Time No Known Allergies Allergy Verified 02/19/17 11:47 - Home Medications Home Medications: Ambulatory Orders Amlodipine Besylate 5 mg PO DAILY 11/17/16 Atorvastatin Ca [Lipitor] 10 mg PO HS 11/17/16 Losartan-Hctz 100-25 mg Tab DAILY 11/17/16 Aspirin [ASA -] 81 mg PO DAILY tab.chew 11/18/16 Meclizine HCl [Antivert -] 25 mg PO DAILY PRN #0 tablet MDD 3 11/18/16 Physical Exam-Neuro Vital Signs: Vital Signs Temperature 99.7 F H 02/20/17 11:07 Pulse Rate 68 02/20/17 11:07 Respiratory Rate 20 02/20/17 11:07 Blood Pressure 130/81 02/20/17 11:07 O2 Sat by Pulse Oximetry (%) 98 02/19/17 21:04 Labs: CBC, BMP 02/19/17 13:41 02/19/17 13:41 Imaging - Results MRI: Report Reviewed Assessment/Plan cc neck pain and right shoulder pain for three weeks HPI 71 year old female with past medical history of hypertension, hyperlipidemia , and ckd. She was recently diagnosed with MIgraine and restless leg syndrome. Patient also have left arm pain in november and that seemd to be improved. for past three weeks she has been having right shoulder neck pain. It is much worse in night. She felt weak in her right arm. She denies any trauma, fever or cancer. She had mri of c spine done and it was unchaged and there is small streak of fluid in prevertebral region of unknown etiology. She continue to have severe pain in right shoulder pain. Past Medical History as above. FH, SH AND ROS reviwed in chart NKDA Home Medications Amlodipine Besylate 5 mg PO DAILY 11/17/16 Atorvastatin Ca [Lipitor] 10 mg PO HS 11/17/16 Losartan-Hctz 100-25 mg Tab DAILY 11/17/16 Aspirin [ASA -] 81 mg PO DAILY tab.chew 11/18/16 Meclizine HCl [Antivert -] 25 mg PO DAILY PRN #0 tablet MDD 3 11/18/16 Neurological Examination Alert oriented x 3 CN all intact Motor , there is tenderness of right shoudler and limitation of doing internal rotation and lifting her arm above head She has difficulty with giving full affort on testing different muscle group of right arm On coaching there was good effort on right deltoid,tricep adn bicep and hang group and all muscle group seems to be grade 5 reflex are symmetrical no sensory loss identified MRI of C spine reviewed Assessment- Less likley to be Cx radiculopathy , and streak of fluid in prevertebral region ? unknown etiology. 2. I suspected right shoulder and neck pain seems to be rotator cuff injury or frozen shoulder Plan- Neurosurgery or general surgery consult regarding this fluid in prevertebral region 2. orthopedic consult for right shoulder rotator cuff pathology , ? perhaps need steroid injection 3. Physical therapy , NSAID prn Thnks for consult Mandeep Cr MD
[2017-02-20] MEDS: SODIUM CHLORIDE 0.45%/POT 20 MEQ/1,000 ML INFUS.BAG IV SCH (14:19)
[2017-02-20] MEDS: ATORVASTATIN CA 20 MG TABLET (FP) PO SCH (22:17)
[2017-02-21] MEDS: SODIUM CHLORIDE 0.45%/POT 20 MEQ/1,000 ML INFUS.BAG IV SCH ×2 (03:26→12:08)
[2017-02-21 07:44] LABS: BASOPHIL 0.2 % (0-2.0); MCH 29.4 pg (25.7-33.7); MCHC 32.6 g/dl (32.0-36.0); MEAN CELL VOLUME 90.3 fl (80-96); MEAN PLT VOLUME 12.3 fl (7.5-11.1); NEUTROPHILS 75.6 % (42.8-82.8); PLATELET COUNT 167 K/MM3 (134-434); RDW 13.5 % (11.6-15.6)
[2017-02-21 08:12] LABS: ALBUMIN 3.3 g/dl (3.4-5.0); ANION GAP 5 (8-16); CALCIUM 8.6 mg/dL (8.5-10.1); CO2 30 mmol/L (21-32); GLUCOSE,RANDOM 111 mg/dL (74-106)
[2017-02-21 08:16] LABS: ALK PHOS 86 U/L (45-117); BILIRUBIN,TOTAL 0.5 mg/dL (0.2-1.0); CREATININE 0.7 mg/dL (0.55-1.02); SGOT/AST 9 U/L (15-37); SGPT/ALT 17 U/L (12-78); TOT PROT 6.6 g/dl (6.4-8.2)
[2017-02-21] MEDS: LOSARTAN 50MG/HCTZ 12.5MG 1 TAB (FP) PO SCH (09:16)
[2017-02-21] MEDS: amLODIPine BESYLATE 5 MG TABLET (FP) PO SCH (09:16)
--- NOTE | 2017-02-21 11:11 | CONSULT ---
Consult - text type - Consultation Consultation Note: Neurosurgery Consult Patient known to me from prior admission in November 2016. Patient has been having severe neck and shoulder pains which are increasing in intensity. MRI and CT demonstrate Cervical spondylosis with facet arthropathy and mild Cervical cord compression and foraminal stenosis at multiple levels. Patient has undergone 3 months of conservative/medical management, however, unfortunately, her symptoms are progressing. The patient does have suggestion of intrinsic shoulder impingement (positive scratch and empty can signs) and I agree with Dr. Cr's suggestion of Orthopaedic evaluation. Cardiology consultation seems to exclude cardiac etiology. If patient persists with difficulties after treatment of the shoulder and no other etiology/potential treatment identified for these progressive pains which are causing severe impairment of her quality of life and restrictions of her activities of daily living, will consider C2-6 posterior decompression and stabilization.
--- NOTE | 2017-02-21 11:58 | PN ---
Progress Note (short form) - Note Progress Note: 71 year old female with past medical history of hypertension, hyperlipidemia, and ckd. She was recently diagnosed with MIgraine and restless leg syndrome. Patient also have left arm pain in november and that seemd to be improved. for past three weeks she has been having right shoulder neck pain. It is much worse in night. She felt weak in her right arm. She denies any trauma, fever or cancer. She had mri of c spine done and it was unchaged and there is small streak of fluid in prevertebral region of unknown etiology. She continue to have severe pain in right shoulder pain. She Saw Dr Durant ( Neurosurgery) today. Still waiting for orthopedic . Neurological Examination Alert oriented x 3 CN all intact Motor , there is tenderness of right shoudler and limitation of doing internal rotation and lifting her arm above head She has difficulty with giving full affort on testing different muscle group of right arm On coaching there was good effort on right deltoid,tricep adn bicep and hang group and all muscle group seems to be grade 5 reflex are symmetrical no sensory loss identified Exam unchnaged MRI of C spine reviewed Assessment- Less likley to be Cx radiculopathy , and streak of fluid in prevertebral region ? unknown etiology. 2. I suspected right shoulder and neck pain seems to be rotator cuff injury or frozen shoulder Plan-1. Neurosurgery consult appreciated 2.Waiting for Orthopedic consult ? perhaps need steroid injection 3. Physical therapy , NSAID prn Thnks for consult Mandeep Cr MD
[2017-02-21] MEDS: CEFTRIAXONE 1 G/50 ML PREMIX 50 ML IVPB SCH (12:08)
[2017-02-21] MEDS ORDERED: methylPREDNISolone ACET (DEPO) 80 MG/1 ML VIAL IAR ONE (12:45)
[2017-02-21] MEDS ORDERED: LIDOCAINE HCL 1%, 10 MG/ML (20ML VIAL) ONE (12:47)
--- NOTE | 2017-02-21 13:02 | CON.ORTH ---
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: Vertigo Cardio/Vascular: Yes: HTN, Hyperlipdemia Gastrointestinal: Yes: Constipation Renal/: Yes: Renal Inusuff Musculoskeletal: Yes: Osteoarthritis, Other (DISCOGENIC DISEASE) - Alcohol/Substance Use Hx Alcohol Use: No (QUIT 2 YEARS AGO) - Smoking History Smoking history: Never smoked Have you smoked in the past 12 months: No Home Medications - Allergies Allergies/Adverse Reactions: Allergies Allergy/AdvReac Type Severity Reaction Status Date / Time No Known Allergies Allergy Verified 02/19/17 11:47 - Home Medications Home Medications: Ambulatory Orders Amlodipine Besylate 5 mg PO DAILY 11/17/16 Atorvastatin Ca [Lipitor] 10 mg PO HS 11/17/16 Losartan-Hctz 100-25 mg Tab DAILY 11/17/16 Aspirin [ASA -] 81 mg PO DAILY tab.chew 11/18/16 Meclizine HCl [Antivert -] 25 mg PO DAILY PRN #0 tablet MDD 3 11/18/16 Physical Exam for Ortho Vital Signs: Vital Signs Temperature 99.1 F 02/21/17 10:00 Pulse Rate 86 02/21/17 10:00 Respiratory Rate 18 02/21/17 10:00 Blood Pressure 140/85 02/21/17 10:00 O2 Sat by Pulse Oximetry (%) 98 02/21/17 10:00 Labs: CBC, BMP 02/21/17 05:48 02/21/17 05:48 - Upper Extremity Shoulder: Yes: Right, Limited ROM, Pain, Swelling, Tenderness, Other (+ttp, FF 100, ER 20, abd 80, IR buttock, + neer, + mejia, +empty can, nvi) Imaging - Results X-ray: Report Reviewed, Image Reviewed Cat Scan: Report Reviewed, Image Reviewed Assessment/Plan 71 year old female, with a significant past medical history of hypertension, hyperlipidemia, cervical ridiculopathy, vertigo, CKD, and chronic constipation, who presents to the emergency department with chest pain for approximately 2 weeks. The patient reports right sided chest pain radiating into her right shoulder, biceps, and right upper back. Patient reports her pain is exacerbated with motion and states it is difficult to put on clothing or sleep at night secondary to pain. Patient reports pain worsened with exertion but denies any diaphoresis, palpitations, numbness, tingling, or lower extremity edema. Patient reports she has had this pain intermittently for 4 months, but it has worsened during the past 2 weeks. Patient states she was at Dr. White office earlier today for evaluation of the pain, but left to the ER before she was seen , because she could not tolerate the pain. Patient reports taking Tylenol and meloxicam with minimal relief of symptoms. She had MRI and CT of her cervical spine in the past to evaluate this pain. She denies any fever, chills, cough, SOB, headache, dizziness, lightheadedness, ear ringing, or changes in vision. She denies any abdominal pain, nausea, vomiting, diarrhea, constipation, or urinary sxs. She denies any recent travel or sick contacts. a/p- Right shoulder GH DJD, impingement vs RCT Under sterile technique right subacromial space was injected with lidocaine and depo-medrol Injection tolerated well PT eval july d/c from ortho pov f/u as outpt in 10-14 days d/w Dr. Vargas
--- NOTE | 2017-02-21 13:40 | PN ---
Progress Note, Physician History of Present Illness: PT WITH SHOULDER PAIN - Current Medication List Current Medications: Active Medications Acetaminophen (Tylenol -) 650 mg PO Q6H PRN PRN Reason: FEVER OR PAIN Amlodipine Besylate (Norvasc -) 5 mg PO DAILY [facility] Last Admin: 02/21/17 09:16 Dose: 5 mg Atorvastatin Calcium (Lipitor -) 20 mg PO HS [facility] Last Admin: 02/20/17 22:17 Dose: 20 mg HCTZ/Losartan Potassium (Hyzaar -) 1 tab PO DAILY [facility] Last Admin: 02/21/17 09:16 Dose: 1 tab Potassium Chloride/Sodium Chloride (1/2ns+20meq Kcl) 20 meq in 1,000 mls @ 75 mls/hr IV ASDIR [facility] Last Admin: 02/21/17 12:08 Dose: Not Given CEFTRIAXONE 1 G/50 ML PREMIX (Ceftriaxone 1 Gm-D5w Bag) 50 mls @ 100 mls/hr IVPB DAILY [facility] Last Admin: 02/21/17 12:08 Dose: 100 mls/hr Morphine Sulfate (Morphine Sulfate) 2 mg IVPUSH Q6H PRN PRN Reason: PAIN Last Admin: 02/20/17 22:15 Dose: 2 mg Ondansetron HCl (Zofran Odt -) 4 mg SL Q6H PRN PRN Reason: NAUSEA AND/OR VOMITING - Objective Vital Signs: Vital Signs Temperature 99.1 F 02/21/17 10:00 Pulse Rate 86 02/21/17 10:00 Respiratory Rate 18 02/21/17 10:00 Blood Pressure 140/85 02/21/17 10:00 O2 Sat by Pulse Oximetry (%) 98 02/21/17 10:00 Cardiovascular: Yes: Regular Rate and Rhythm Respiratory: Yes: Regular, CTA Bilaterally Gastrointestinal: Yes: Normal Bowel Sounds, Soft. No: Tenderness Musculoskeletal: Yes: Joint Stiffness, Muscle Pain, Muscle Weakness Labs: CBC, BMP 02/21/17 05:48 02/21/17 05:48 Problem List - Problems (1) Cervical radiculopathy Assessment/Plan: MRI RESULTS NOTED--FLUID OF UNKNOWN ETIOLOGY DOSE OF DECADRON N/S CONSULT NOTED AND APPRECIATED ESR/CRP Code(s): M54.12 - RADICULOPATHY, CERVICAL REGION (2) CKD (chronic kidney disease) Assessment/Plan: Laboratory Tests 02/19/17 13:41 BUN 10 D Creatinine 0.6 D STABLE NOW Code(s): N18.9 - CHRONIC KIDNEY DISEASE, UNSPECIFIED Qualifiers: Chronic kidney disease stage: stage 2 (mild) Qualified Code(s): N18.2 - Chronic kidney disease, stage 2 (mild) (3) Hypertension Assessment/Plan: Vital Signs Period Temp Pulse Resp BP Sys/Buck Pulse Ox Last 24 Hr 97.4 F-99.7 F 68-103 18-20 127-148/79-92 97-98 MONITOR Code(s): I10 - ESSENTIAL (PRIMARY) HYPERTENSION Qualifiers: Hypertension type: essential hypertension Qualified Code(s): I10 - Essential (primary) hypertension (4) Chest pain Assessment/Plan: ATYPICAL MAYBE DUE TO DISC DS CE NEGATIVE CARDIO CONSULT NOTED Code(s): R07.9 - CHEST PAIN, UNSPECIFIED (5) Pneumonia Assessment/Plan: IV ABX PULM CONSULT WILL NEED F/U CT SCAN OUTPATIENT--D/W PT Code(s): J18.9 - PNEUMONIA, UNSPECIFIED ORGANISM (6) Shoulder pain, right Assessment/Plan: ORTHO CONSULT Code(s): M25.511 - PAIN IN RIGHT SHOULDER
[2017-02-21] MEDS: morphine SULFATE 4 MG/ML VIAL IVPUSH PRN (18:12)
[2017-02-21] MEDS: ATORVASTATIN CA 20 MG TABLET (FP) PO SCH (21:42)
--- NOTE | 2017-02-22 08:34 | PN ---
Progress Note (short form) - Note Progress Note: Ortho Pt seen and examined s/p cortisone injection into right shoulder, feeling better decr pain, incr rom nvi a/p Improving s/p injection ROM exercises may d/c from ortho pov f/u in 7-14 days in the office d/w Dr. Vargas
--- NOTE | 2017-02-22 09:08 | PN ---
Progress Note (short form) - Note Progress Note: 71 year old female with past medical history of hypertension, hyperlipidemia, and ckd. She was recently diagnosed with MIgraine and restless leg syndrome. Patient also have left arm pain in november and that seemd to be improved. for past three weeks she has been having right shoulder andneck pain. It is much worse in night. She felt weak in her right arm. She denies any trauma, fever or cancer. She had mri of c spine done and it was unchaged and there is small streak of fluid in prevertebral region of unknown etiology. She continue to have severe pain in right shoulder pain. She Saw Dr Durant ( Neurosurgery) today. Still waiting for orthopedic . Neurological Examination Alert oriented x 3 CN all intact Motor , there is tenderness of right shoudler and limitation of doing internal rotation and lifting her arm above head She has difficulty with giving full affort on testing different muscle group of right arm On coaching there was good effort on right deltoid,tricep adn bicep and hang group and all muscle group seems to be grade 5 reflex are symmetrical no sensory loss identified Exam unchnaged MRI of C spine reviewed A/p Less likley to be Cx radiculopathy , and streak of fluid in prevertebral region ? unknown etiology. Neurosurgery consult appreciated, and She got cortisone injection and her pain is much better. PT and NSAID outpatient Thnks for consult Mandeep Cr MD
[2017-02-22] MEDS: CEFTRIAXONE 1 G/50 ML PREMIX 50 ML IVPB SCH (10:04)
[2017-02-22] MEDS: amLODIPine BESYLATE 5 MG TABLET (FP) PO SCH (10:04)
[2017-02-22] MEDS: LOSARTAN 50MG/HCTZ 12.5MG 1 TAB (FP) PO SCH (10:05)
[2017-02-22] MEDS: morphine SULFATE 4 MG/ML VIAL IVPUSH PRN (10:06)
[2017-02-22] MEDS: SODIUM CHLORIDE 0.45%/POT 20 MEQ/1,000 ML INFUS.BAG IV SCH (12:17)
--- NOTE | 2017-02-22 13:01 | PN ---
Progress Note (short form) - Note Progress Note: PULMONARY CONSULTATION DICTATED 02/22/17 IMP RUL/RML INFILTRATES LLIKELY PNEUMONIA PATRICIA NODULE OSAS CHEST PAIN HTN PLAN ANTIBIOTICS SPUTUM C+S ANALGESICS F/U CHEST CT 4-6 WKS TO DOCUMENT RESOLUTION OF INFILTRATES SLEEP STUDY OUTPATIENT Problem List - Problems (1) Sleep apnea Code(s): G47.30 - SLEEP APNEA, UNSPECIFIED (2) Cervical radiculopathy Code(s): M54.12 - RADICULOPATHY, CERVICAL REGION (3) Chest pain Code(s): R07.9 - CHEST PAIN, UNSPECIFIED (4) Pneumonia Code(s): J18.9 - PNEUMONIA, UNSPECIFIED ORGANISM (5) CKD (chronic kidney disease) Code(s): N18.9 - CHRONIC KIDNEY DISEASE, UNSPECIFIED Qualifiers: Chronic kidney disease stage: stage 2 (mild) Qualified Code(s): N18.2 - Chronic kidney disease, stage 2 (mild) (6) Hypertension Code(s): I10 - ESSENTIAL (PRIMARY) HYPERTENSION Qualifiers: Hypertension type: essential hypertension Qualified Code(s): I10 - Essential (primary) hypertension
[2017-02-22 13:34] VITALS: BP 140/68; PULSE 98; TEMP 98.8
--- NOTE | 2017-02-22 14:13 | PN ---
Progress Note (short form) - Note Progress Note: Patient improved after steroid injection in Right Shoulder. Some symptoms persist, but may taiwo with time. Reviewed Cervical findings with patient and daughter in detail. No urgent indication for Neurosurgical intervention. Patient given information on which signs and symptoms might warrant further evaluation. All questions answered. Patient has contact information for my office should she develop difficulties into the future.
--- NOTE | 2017-02-22 14:20 | PN ---
Progress Note (short form) - Note Progress Note: ID Consult dictated RUL, RML pneumonia Cervical radiculopathy Paraspinal fluid collection ? etiology Clinically improved Afebrile, normal WBC May substitute ceftin 500mg po bid x 7d Outpatient pulmonary, neurosurgical follow ups
--- NOTE | 2017-02-22 16:12 | DS ---
Physical Examination Vital Signs: Vital Signs Temperature 98.8 F 02/22/17 13:33 Pulse Rate 98 H 02/22/17 13:33 Respiratory Rate 16 02/22/17 13:33 Blood Pressure 140/68 02/22/17 13:33 O2 Sat by Pulse Oximetry (%) 97 02/22/17 09:00 Constitutional: Yes: Mild Distress Eyes: Yes: WNL HENT: Yes: WNL Neck: Yes: WNL Cardiovascular: Yes: WNL Respiratory: Yes: WNL Gastrointestinal: Yes: WNL Renal/: Yes: WNL Musculoskeletal: Yes: Joint Stiffness, Muscle Pain Extremities: Yes: WNL Edema: No Peripheral Pulses WNL: Yes Integumentary: Yes: WNL Wound/Incision: Yes: Clean/Dry Neurological: Yes: WNL ...Motor Strength: WNL Psychiatric: Yes: WNL Labs: CBC, BMP 02/21/17 05:48 02/21/17 05:48 Discharge Summary Reason For Visit: CERVICAL RADICULOPATHY,CHEST PAIN Current Active Problems Cervical radiculopathy (Acute) Chest pain (Acute) Pneumonia (Acute) Shoulder pain, right (Acute) Sleep apnea (Acute) Procedures: Principal: mri Other Procedures: cortizone injection Hospital Course: admitted r/o chest pain cardiac, found with cervical radiculopathy and shoulder pain, cortizone injection right shoulder alevaited pain, f/u in 2 weeks outpatient Condition: Stable - Instructions Diet, Activity, Other Instructions: low fat low salt see dr mckinnon 2 weeks for labs Referrals: Yogesh Mckinnon MD [Primary Care Provider] - Disposition: HOME - Home Medications Comprehensive Discharge Medication List: Ambulatory Orders Amlodipine Besylate 5 mg PO DAILY 11/17/16 Atorvastatin Ca [Lipitor] 10 mg PO HS 11/17/16 Losartan-Hctz 100-25 mg Tab DAILY 11/17/16 Aspirin [ASA -] 81 mg PO DAILY tab.chew 11/18/16 Meclizine HCl [Antivert -] 25 mg PO DAILY PRN #0 tablet MDD 3 11/18/16 Acetaminophen [Tylenol .Regular Strength -] 650 mg PO Q6H PRN tablet 02/22/17 Amlodipine Besylate [Norvasc -] 5 mg PO DAILY tablet 02/22/17 Atorvastatin Ca [Lipitor] 20 mg PO HS tablet 02/22/17 Cefuroxime Axetil [Ceftin -] 500 mg PO Q12H #12 tablet 02/22/17 Losartan 50Mg/Hctz 12.5MG [Hyzaar -] 1 tab PO DAILY tablet 02/22/17
--- NOTE | 2017-02-22 16:58 | CONS ---
DATE OF CONSULTATION: HISTORY: The patient is a 71-year-old female with a history of cervical radiculopathy, hypertension, hyperlipidemia evaluated for pneumonia. She was admitted to the hospital on February 19, 2017 with a [id number] of worsening right-sided chest pain and shoulder pain. The pain was exacerbated by movement. On admission, a chest x-ray was negative for acute infiltrate. Her course was complicated by low-grade fever. A CAT scan of the chest was performed and showed a nodular-appearing right upper lobe and right middle lobe infiltrates. She was also noted to have a left upper lobe nodule. She was empirically treated with ceftriaxone for presumed pneumonia. She received a corticosteroid injection of the right shoulder and was seen in consultation by Neurosurgery. An MRI of the cervical spine showed a prevertebral fluid collection of unclear etiology. She denies any recent febrile illness or focal neurological deficit. At the present time, she is awake and alert. She is clinically improved. She denies any chest pain. No complaints of shortness of breath, cough, or sputum production. No hemoptysis. She denies any ill contacts. She is a nonsmoker. She was last hospitalized in November of this year. She has not received influenza or pneumococcal vaccines. PAST MEDICAL HISTORY: Positive for cervical radiculopathy, hypertension, hyperlipidemia. ALLERGIES: No known allergies. MEDICATIONS: Include Tylenol, amlodipine, Lipitor, ceftriaxone, morphine, Zofran. SOCIAL HISTORY: Lives at home with family members. Nonsmoker. Nondrinker. SYSTEMS REVIEW: Neurologic: As per HPI. Cardiac: Negative retrosternal chest pain or palpitations. Respiratory: As per HPI. Gastrointestinal: Negative vomiting or diarrhea. Genitourinary: Negative for urinary tract infection. LABORATORY DATA: White count 5, neutrophils 75%, hematocrit 36.5, platelet count 167, BUN 13, creatinine 0.7, ESR 10. PHYSICAL EXAMINATION: General: She is awake and alert. She is not acutely toxic appearing. Her breathing is nonlabored on room air. Vital Signs: Temperature 98.8, blood pressure 140/68, pulse 98 and regular, respirations 16 per minute. HEENT: Sclerae anicteric. Heart: Sounds S1, S2. Lungs: Clear bilaterally. No rales, rhonchi, or wheezing. Abdomen: Soft. No tenderness elicited. No mass, rebound, or rigidity. Extremities: Have 1+ edema. IMPRESSION: 1. Likely community-acquired right middle lobe/right upper lobe pneumonia. 2. Cervical radiculopathy. 3. Left upper lobe lung nodule. 4. Paraspinal fluid collection of unclear etiology. PLAN: Patient clinically improved with respect to pulmonary symptoms. She is afebrile with a normal white blood cell count. She denies any dyspnea or cough. May substitute Ceftin 500 mg p.o. b.i.d. for an additional 7 days. Sputum culture and urine Legionella antigen have been ordered. The patient will follow up with Pulmonary to have a repeat CAT scan to document resolution of nodular-appearing infiltrates. In addition, she will follow up with Neurosurgery with respect to her cervical radiculopathy and finding of paraspinal fluid collection. Thank you for the kind referral. DANAE CURTIS M.D. [id number]
--- NOTE | 2017-02-22 17:18 | CONS ---
DATE OF CONSULTATION: 02/22/2017 REFERRING PHYSICIAN: Terrie Carter MD HISTORY: The patient is a 71-year-old black female with past medical history of hypertension, history of obstructive sleep apnea not on CPAP, hyperlipidemia, osteoarthritis, nonsmoker admitted to [facility] with complaint of right-sided chest pain and neck pain. The patient states that the pain is present for over a week. States it is slightly relieved by Toradol. She also complains of some pain when touching the right side of the chest. The patient also for the past week has been complaining of a cough productive of green sputum. Denies any fevers, chills, nausea, vomiting, or diaphoresis. Denies any hemoptysis. She was admitted with the above. On admission, she underwent a CTA of the chest, which revealed no evidence of pulmonary embolism but showed a 0.5-cm left apical nodule as well as small right upper lobe and right middle lobe infiltrates. The patient was started on ceftriaxone. The patient denies any history of occupational exposures to chemicals or fumes. There is no recent travel. She was born in [place] and moved to the [facility] many years ago. PAST MEDICAL HISTORY: Again, includes hypertension, obstructive sleep apnea not on CPAP, vertigo, chronic kidney disease, cervical radiculopathy, and hyperlipidemia. REVIEW OF SYSTEMS: No orthopnea, no PND. Positive chest pain. Positive cough. No fever, no chills, no hemoptysis. CURRENT MEDICATIONS: Include Tylenol, Hyzaar, ceftriaxone, Norvasc, Lipitor, and potassium chloride. PHYSICAL EXAMINATION: General: The patient is a well-developed, well-nourished black female awake and alert in no acute distress. Vital Signs: She is afebrile. Blood pressure 142/76, respiratory rate 18, O2 saturation 97% on room air. HEENT: Normocephalic and atraumatic. Neck: Supple. Heart: Regular S1, S2. Chest: Clear. Abdomen: Soft. Bowel sounds positive. Extremities: No cyanosis or edema. WBC 5, hemoglobin 11.9, hematocrit 36.5 with a platelet count of 167,000, BUN 13, creatinine 0.7. Chest CT as noted earlier. IMPRESSION: 1. Right upper lobe, right middle lobe infiltrates, likely pneumonia. 2. Left apical nodule. 3. Chest pain syndrome. 4. Obstructive sleep apnea not on CPAP. 5. Hypertension. PLAN: Supplement Antibiotic therapy. O2 p.r.n. Follow up chest CT in 4-6 weeks to document resolution of infiltrates. If there is no improvement, would recommend biopsy. Continue follow up 0.5-cm left upper lobe nodule over 2 years to document stability. If there is any evidence of interval growth, would recommend PET scan and biopsy. Repeat sleep study. FAHAD ROBERTO M.D. [id number]
== END 2017-02-22 17:14 | disposition home or self-care (01) | DRG 551 ==
LOC: JER 11:36 → JERBED 15:27 → J4W 20:38
PROVIDERS: ADMIT Family Medicine; ATTEND Family Medicine
PROC: 3E0U33Z Introduction of Anti-inflammatory into Joints, Percutaneous Approach (ICD-10-PCS; principal; 2017-02-21)
PROC: 3E0U3BZ Introduction of Anesthetic Agent into Joints, Percutaneous Approach (ICD-10-PCS; 2017-02-21)
DX: M47.22 Other spondylosis with radiculopathy, cervical region (principal); J18.9 Pneumonia, unspecified organism; G95.29 Other cord compression; M54.12 Radiculopathy, cervical region; E78.5 Hyperlipidemia, unspecified; R42 Dizziness and giddiness; I12.9 Hypertensive chronic kidney disease with stage 1 through stage 4 chronic kidney disease, or unspecified chronic kidney disease; N18.2 Chronic kidney disease, stage 2 (mild); K59.09 Other constipation; R07.89 Other chest pain; G43.809 Other migraine, not intractable, without status migrainosus; G25.81 Restless legs syndrome; M25.511 Pain in right shoulder; R91.1 Solitary pulmonary nodule; M19.011 Primary osteoarthritis, right shoulder; G47.33 Obstructive sleep apnea (adult) (pediatric); Z87.891 Personal history of nicotine dependence
CPT/HCPCS: 36415; 71020-TC; 71275-TC; 72141-TC; 73030-TC-RT; 80053; 80061; 82550; 83036; 83721; 83735; 83880; 84484; 85025; 85651; 86140; 93005; 93010; 99283-25

== ENCOUNTER 2017-05-12 07:33 | Day surgery (SDC) | payer OTHER ==
[2017-05-06 11:26] VITALS: BMI 34.2
[2017-05-12] MEDS ORDERED: MIDAZOLAM HCL 2 MG/2 ML SINGLE DOSE VIAL ONE ×2 (08:34→09:01)
[2017-05-12] MEDS ORDERED: PROPOFOL 20 ML ONE ×3 (08:34→11:20)
[2017-05-12] MEDS ORDERED: ROPIVACAINE HCL 0.5% 30ML VIAL ONE (09:01)
[2017-05-12] MEDS ORDERED: DEXAMETHASONE SOD PHOSPHATE/PF 10 MG/ML SDV ONE (09:01)
[2017-05-12] MEDS ORDERED: EPINEPHrine 1:1,000 1 MG/1 ML - 30ML VIAL (INJECTION) ONE (09:12)
[2017-05-12] MEDS ORDERED: ONDANSETRON 4 MG/2 ML VIAL IVPUSH PRN (12:23)
[2017-05-12] MEDS ORDERED: oxyCODONE HCL 5 MG TABLET PO PRN (12:23)
[2017-05-12 12:25] VITALS: TEMP 97.5
[2017-05-12] MEDS ORDERED: LACTATED RINGERS SOLUTION 1,000 ML IV SCH (12:30)
[2017-05-12 12:52] VITALS: BP 121/71; PULSE 77
--- NOTE | 2017-05-14 09:18 | OP ---
DATE OF OPERATION: 05/12/2017 PREOPERATIVE DIAGNOSIS: 1. Right shoulder glenohumeral joint osteoarthritis. 2. Right shoulder partial thickness rotator cuff tear. 3. Proximal biceps tendon tear. 4. Right shoulder subacromial impingement syndrome and bone spur. 5. Loose bodies, glenohumeral joint. PROCEDURE: 1. Right shoulder operative arthroscopy with extensive glenohumeral joint debridement. 2. Right shoulder proximal biceps tenotomy. 3. Right shoulder arthroscopic subacromial decompression with anterior-inferior acromioplasty. 4. Excision of loose bodies, glenohumeral joint. SURGEON: Lonny Johnson MD REPAIRER [employer]: PAULETTE Andrade ANESTHESIA: Regional. COMPLICATIONS: None. ESTIMATED BLOOD LOSS: Minimal. INDICATIONS FOR PROCEDURE: The patient presented with the above findings and was indicated for operative treatment. The risks, benefits, and alternatives were discussed with the patient at length, and proper informed consent was obtained. DESCRIPTION OF PROCEDURE: After proper identification of the patient and the correct operative site, the patient was given regional anesthesia and was brought to the operating room and placed into the beach-chair position with all points of contact well-padded. An in-line cervical position was maintained throughout the procedure. Right upper extremity was prepped and draped in the usual sterile fashion. Examination under anesthesia showed forward elevation to 110 degrees, external rotation to 45 degrees, internal rotation to 30 degrees. Standard arthroscopy was performed through posterior, lateral, and anterior portals. Glenohumeral joint was observed and found to have severe arthrosis. Several loose bodies were found in the axillary pouch, and these were excised. Significant synovitis was found throughout the joint, and a thorough debridement was performed. Subscapularis was found to be intact. Rotator cuff was found to be attached with partial thickness tearing of the anterior supraspinatus. This was debrided. Tendinosis was found of the entire rotator cuff and was debrided. No full-thickness tears were noted. Proximal biceps had near complete tearing, and a tenotomy was performed. The remainder of the biceps tendon was shaved down to a healthy edge. Labrum was found to be severely frayed, but intact, attached to the glenoid. Near full-thickness chondromalacia was found of almost the entire glenohumeral joint. This was more severe on the humerus than the glenoid. Arthroscope was then introduced into the subacromial space where a severe bursitis was noted, and this was debrided. A very large anterior-inferior subacromial spur was also noted, and an anterior-inferior acromioplasty was performed. There was no full-thickness rotator cuff tear noted on the bursal surface, as well, although some fraying was noted and debrided. Arthroscope was then removed from the shoulder. Shoulder was irrigated, and each incision was repaired with a 4-0 nylon suture. Sterile dressings were applied. Sling was placed. Patient was reversed from anesthesia and brought to the recovery room in stable condition. Andre Torres, the registered dental assistant, was integral throughout this procedure. The procedure could not have been performed without a skilled operative registered dental assistant. LONNY JOHNSON M.D. [id number]
== END 2017-05-12 12:50 | disposition home or self-care (01) ==
LOC: FASU 07:33
PROVIDERS: ATTEND Orthopaedic Surgery Hand Surgery
PROC: 0RBJ4ZZ Excision of Right Shoulder Joint, Percutaneous Endoscopic Approach (ICD-10-PCS; 2017-05-12)
PROC: 0RCJ4ZZ Extirpation of Matter from Right Shoulder Joint, Percutaneous Endoscopic Approach (ICD-10-PCS; 2017-05-12)
PROC: 0LN14ZZ Release Right Shoulder Tendon, Percutaneous Endoscopic Approach (ICD-10-PCS; 2017-05-12)
PROC: 0LB14ZZ Excision of Right Shoulder Tendon, Percutaneous Endoscopic Approach (ICD-10-PCS; principal; 2017-05-12 10:34)
PROC: 0RNJ4ZZ Release Right Shoulder Joint, Percutaneous Endoscopic Approach (ICD-10-PCS; 2017-05-12 10:34)
DX: M19.011 Primary osteoarthritis, right shoulder (principal); M75.101 Unspecified rotator cuff tear or rupture of right shoulder, not specified as traumatic; M66.811 Spontaneous rupture of other tendons, right shoulder; M75.41 Impingement syndrome of right shoulder; M25.711 Osteophyte, right shoulder; M24.011 Loose body in right shoulder

== ENCOUNTER 2017-11-18 11:35 | Inpatient (IN) | payer OTHER ==
[2017-11-18 11:43] VITALS: BMI 34.9
--- NOTE | 2017-11-18 12:05 | PDOC ---
History of Present Illness - General Chief Complaint: Irregular Heart Beat Stated Complaint: SENT BY ENDO Time Seen by Provider: 11/18/17 12:05 History Source: Patient Exam Limitations: No Limitations Past History - Past Medical History Allergies/Adverse Reactions: Allergies Allergy/AdvReac Type Severity Reaction Status Date / Time No Known Drug Allergies Allergy Verified 11/18/17 11:40 Home Medications: Ambulatory Orders Losartan/Hydrochlorothiazide [Losartan-Hctz 100-25 mg Tab] 1 each PO DAILY #0 Aspirin [ASA -] 81 mg PO DAILY tab.chew 11/18/16 Meclizine HCl [Antivert -] 25 mg PO DAILY PRN #0 tablet MDD 3 11/18/16 Amlodipine Besylate [Norvasc -] 5 mg PO DAILY tablet 02/22/17 Acetaminophen [Mapap] 500 mg PO PRN 11/18/17 Atorvastatin Ca [Lipitor] 10 mg PO HS 11/18/17 Ibuprofen [Advil -] 200 mg PO PRN PRN 11/18/17 Anemia: No ( CHILD) Asthma: No Cancer: No Cardiac Disorders: No CVA: No COPD: No CHF: No Dementia: No Diabetes: No GI Disorders: No (CONSTIPATION) Disorders: No HTN: Yes Hypercholesterolemia: Yes Liver Disease: No Seizures: No Thyroid Disease: No - Surgical History Abdominal Surgery: No Appendectomy: No Cardiac Surgery: No Cholecystectomy: No Lung Surgery: No Neurologic Surgery: No Orthopedic Surgery: Yes (R TKR 1999/DEBRIDMENT 2015/L TKR 2004) - Immunization History Immunization Up to Date: Yes - Suicide/Smoking/Psychosocial Hx Smoking History: Never smoked Have you smoked in the past 12 months: No Information on smoking cessation initiated: No Hx Alcohol Use: No Drug/Substance Use Hx: No Substance Use Type: None Hx Substance Use Treatment: No *Physical Exam - Vital Signs Last Vital Signs Temp Pulse Resp BP Pulse Ox 98.4 F 85 16 130/81 100 11/18/17 11:59 11/18/17 11:59 11/18/17 11:59 11/18/17 11:59 11/18/17 11:59
--- NOTE | 2017-11-18 12:24 | PDOC ---
Attending Attestation - Resident Resident Name: ZiMundo - ED Attending Attestation I have performed the following: I have examined & evaluated the patient, The case was reviewed & discussed with the resident, I agree w/resident's findings & plan, Exceptions are as noted - HPI HPI: 11/18/17 12:23 72y F hx of htn, RA, vertigo, dl, presents with new onset afib while preping for a colonscopy. Pt noted to have HR of 130s, EKG noted for afib. Pt notes some matamoros for the past few months. Denies any cp, diarphoesis, n/v, abd pain, back pain, leg swelling, numbness/tingling/weakness, vision changes, f/c. pt has no other complaints. on exam pt in no distress Heart: irregular irregular, tachycardic pulm: cta b/l abd sof tnontender LE: no edema pts HR fluctuating between 110s-120s - will give diltiazem vitals otherwise stable anticipate admission for further management of new afib will start ac after discussion with cardiology - Physicial Exam PE: 11/18/17 20:25 see above - Critical Care Time Total Critical Care Time: 40 Critical Care Statement: The care of this patient involved high complexity decision making to prevent further life threatening deterioration of the patient 's condition and/or to evaluate & treat vital organ system(s) failure or risk of failure. - Medical Decision Making 11/18/17 16:20 pt will be admitted for furthe rmanagement of afib HR improved with diltiazem 10mg, 30mg PO given stable for tele cards consulted pt given eliquis Heart Score/ECG Review - ECG Impressions Comment:: 11/18/17 14:03 Twelve-lead EKG was performed and reviewed by me. Irregularly irregular rate of 97 ekg from 11:43 repet ekg at 14:05 irregularly irregular rate of [address] suggestive of acute ischemia
[2017-11-18] MEDS ORDERED: dilTIAZem HCL 50 MG/10 ML - 10 ML VIAL IVPUSH ONE (12:30)
[2017-11-18] MEDS ORDERED: ACETAMINOPHEN 500 MG TABLET (FP) PO ONE (12:31)
--- NOTE | 2017-11-18 12:41 | PDOC ---
History of Present Illness - General Chief Complaint: Irregular Heart Beat Stated Complaint: SENT BY ENDO Time Seen by Provider: 11/18/17 12:05 History Source: Patient Exam Limitations: No Limitations - History of Present Illness Initial Comments: 11/18/17 12:33 Ms. Torres is a 72 yo F with a hx of rheumatoid arthritis, HTN, HLD, and BPPV who presents for new onset of afib with RVR just prior to her routine colonscopy scheduled today with Dr. Francois. Per the patient, during the episode she had no symptoms, denying chest pain, palpitations, SOB, headaches, and dizziness. For the past 3 weeks, she has episodes of SOB with exertion that resolve on its own with rest. Currently asymptomatic. Per the daughter, the patient has not had anything of substance to eat in the past 24 hours in preparation of colonscopy with poor oral hydration. Denies the following: fevers , chills, nausea, vomiting, chest pain, SOB, abdominal pain, dysuria, recent sick contacts, hematuria, diarrhea, melena, hx of DC, CHF, and leg pain/swelling Shx: L and R knee replacement. L and R rotator cuff surgery most recent R on Apr 2017. Meds: Only anticoagulation is 81 mg aspirin Allergies: NKDA Social hx: Denies smoking, alcohol, and substance abuse. Past History - Past Medical History Allergies/Adverse Reactions: Allergies Allergy/AdvReac Type Severity Reaction Status Date / Time No Known Drug Allergies Allergy Verified 11/18/17 11:40 Home Medications: Ambulatory Orders Losartan/Hydrochlorothiazide [Losartan-Hctz 100-25 mg Tab] 1 each PO DAILY #0 Aspirin [ASA -] 81 mg PO DAILY tab.chew 11/18/16 Meclizine HCl [Antivert -] 25 mg PO DAILY PRN #0 tablet MDD 3 11/18/16 Amlodipine Besylate [Norvasc -] 5 mg PO DAILY tablet 02/22/17 Acetaminophen [Mapap] 500 mg PO PRN 11/18/17 Atorvastatin Ca [Lipitor] 10 mg PO HS 11/18/17 Ibuprofen [Advil -] 200 mg PO PRN PRN 11/18/17 Anemia: No ( CHILD) Asthma: No Cancer: No Cardiac Disorders: No CVA: No COPD: No CHF: No Dementia: No Diabetes: No GI Disorders: No (CONSTIPATION) Disorders: No HTN: Yes Hypercholesterolemia: Yes Liver Disease: No Seizures: No Thyroid Disease: No - Surgical History Abdominal Surgery: No Appendectomy: No Cardiac Surgery: No Cholecystectomy: No Lung Surgery: No Neurologic Surgery: No Orthopedic Surgery: Yes (R TKR 1999/DEBRIDMENT 2016/L TKR 2004) - Immunization History Immunization Up to Date: Yes - Suicide/Smoking/Psychosocial Hx Smoking History: Never smoked Have you smoked in the past 12 months: No Information on smoking cessation initiated: No Hx Alcohol Use: No Drug/Substance Use Hx: No Substance Use Type: None Hx Substance Use Treatment: No Review of Systems - Review of Systems Able to Perform ROS?: Yes Constitutional: No: Chills, Diaphoresis, Fever HEENTM: No: Recent change in vision, Ear Pain, Nose Pain, Throat Pain, Mouth Pain Respiratory: Yes: SOB with Exertion. No: Cough, Shortness of Breath, SOB at Rest Cardiac (ROS): No: Chest Pain, Irregular Heart Rate, Lightheadedness, Palpitations, Syncope, Chest Tightness ABD/GI: Yes: Poor Fluid Intake. No: Constipated, Diarrhea, Nausea, Rectal Bleeding, Vomiting, Tarry Stools : No: Burning, Dysuria, Flank Pain, Hematuria Musculoskeletal: No: Back Pain Integumentary: No: Lesions, Rash Neurological: No: Headache, Numbness, Seizure, Tingling, Tremors, Weakness, Unsteady Gait, Ataxia, Dizziness Psychiatric: No: Stressors Endocrine: No: Change in Weight Hematologic/Lymphatic: No: Anemia *Physical Exam - Vital Signs Last Vital Signs Temp Pulse Resp BP Pulse Ox 98.4 F 85 16 130/81 100 11/18/17 11:59 11/18/17 11:59 11/18/17 11:59 11/18/17 11:59 11/18/17 11:59 - Physical Exam General Appearance: Yes: Nourished, Appropriately Dressed HEENT: positive: EOMI, LETICIA Neck: positive: Trachea midline. negative: Lymphadenopathy (R), Lymphadenopathy (L) Respiratory/Chest: positive: Lungs Clear, Normal Breath Sounds Cardiovascular: positive: S1, S2, Tachycardia, Irregularly Irregular. negative : Systolic Murmur Vascular Pulses: Dorsalis-Pedis (R): 3+, Doralis-Pedis (L): 3+ Gastrointestinal/Abdominal: positive: Normal Bowel Sounds. negative: Tender Lymphatic: negative: Adenopathy Musculoskeletal: positive: Normal Inspection. 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 Atrial fibrillation noted with incomplete right bundle branch block with no ST elevation or depression noted. ED Treatment Course - LABORATORY CBC & Chemistry Diagram: 11/18/17 11:59 11/18/17 11:59 Medical Decision Making - Medical Decision Making 11/18/17 12:42 72 yo F presenting with new onset of a fib with rvr with recent SOB for the past 3 weeks. ddx: new onset a fib possibly due to structural cardiac change vs infectious etiology vs metabolic vs idiopathic. ordered 10 mg of diltiazem for rate control. We are holding the diltiazem as of 1:01 pm because HR stays within 100-110 with periodic 115. She remains asymptomatic. Initial vitals: Initial Vital Signs Temp Pulse Resp BP Pulse Ox 99.2 F 109 H 18 141/89 100 11/18/17 11:40 11/18/17 11:40 11/18/17 11:40 11/18/17 11:40 11/18/17 11:40 Work up: Laboratory Tests 11/18/17 11/18/17 11/18/17 11:59 11:59 12:30 WBC 4.0 RBC 4.59 Hgb 13.3 Hct 40.5 MCV 88.3 MCH 29.0 MCHC 32.9 RDW 14.7 Plt Count 207 D MPV 10.9 D Absolute Neuts (auto) 2.1 Neutrophils % 51.9 D Lymphocytes % 37.9 D Monocytes % 8.1 Eosinophils % 1.4 D Basophils % 0.7 D Nucleated RBC % 0 PT with INR INR PTT (Actin FS) Sodium 143 Potassium 5.0 Chloride 106 Carbon Dioxide 27 Anion Gap 10 BUN 13 Creatinine 0.8 Creat Clearance w eGFR > 60 Random Glucose 85 Calcium 9.2 Total Bilirubin 0.9 AST 13 L ALT 14 Alkaline Phosphatase 86 Creatine Kinase 111 Troponin I < 0.02 Total Protein 7.1 Albumin 3.9 Blood Type O POSITIVE Antibody Screen Negative 11/18/17 11/18/17 11/18/17 12:31 12:31 13:36 WBC RBC Hgb Hct MCV MCH MCHC RDW Plt Count MPV Absolute Neuts (auto) Neutrophils % Lymphocytes % Monocytes % Eosinophils % Basophils % Nucleated RBC % PT with INR 13.30 H INR 1.18 H PTT (Actin FS) 29.8 Sodium Potassium Chloride Carbon Dioxide Anion Gap BUN Creatinine Creat Clearance w eGFR Random Glucose Calcium Total Bilirubin AST ALT Alkaline Phosphatase Creatine Kinase Cancelled Troponin I Cancelled Total Protein Albumin Blood Type O POSITIVE Antibody Screen Patient was reassessed and found to have increased weakness with HR in the 130- 140s with new onset of right chest discomfort. A continuous EKG was placed and she was administered diltiazem at 1:55 pm with a blood pressure of approximately 106/71. She was started on 1 L NS. Approximately at 1:%9 pm, her HR was in the high 90s low 100s with a BP of 115/67. Per Dr. Tobias, recommends starting eliquis 5 mg BID. Pt will be admitted for cardiac work up. Dr. Camarena was originally paged at 2:17 pm, 2:45 pm, 3:00 pm, and 3:23 pm for admission at 3:30 pm. Dispo: Admit *DC/Admit/Observation/Transfer Diagnosis at time of Disposition: Atrial fibrillation with rapid ventricular response - Discharge Dispostion Decision to Admit order: Yes - Referrals - Patient Instructions - Post Discharge Activity
[2017-11-18] MEDS ORDERED: dilTIAZem HCL 125 MG/25 ML - 25 ML VIAL ONE (12:56)
[2017-11-18] MEDS ORDERED: ACETAMINOPHEN INJECTION 100 ML IVPB ONE (12:57)
[2017-11-18 13:24] LABS: BASO % 0.7 % (0-2.0); EOS % 1.4 % (0-4.5)
[2017-11-18 13:30] LABS: HEMATOCRIT 40.5 % (32.4-45.2); HEMOGLOBIN 13.3 GM/dL (10.7-15.3); LYMPH % 37.9 % (8-40); MCHC 32.9 g/dl (32.0-36.0); MEAN CELL VOLUME 88.3 fl (80-96); MEAN PLT VOLUME 10.9 fl (7.5-11.1); MONO % 8.1 % (3.8-10.2); NEUT % 51.9 % (42.8-82.8); PLATELET COUNT 207 K/MM3 (134-434); RBC 4.59 M/mm3 (3.60-5.2); RDW 14.7 % (11.6-15.6)
[2017-11-18 13:38] LABS: ALBUMIN 3.9 g/dl (3.4-5.0); ANION GAP 10 MMOL/L (8-16); BLOOD UREA NITROGEN 13 mg/dL (7-18); CALCIUM 9.2 mg/dL (8.5-10.1); CHLORIDE 106 mmol/L (98-107); CO2 27 mmol/L (21-32); CREATININE 0.8 mg/dL (0.55-1.02); GLUCOSE,RANDOM 85 mg/dL (74-106); SGOT/AST 13 U/L (15-37); SGPT/ALT 14 U/L (12-78); SODIUM 143 mmol/L (136-145)
[2017-11-18 13:41] LABS: INR 1.18 (0.83-1.09); PROTHROMBIN TIME (PATIENT) 13.3 SEC (9.7-13.0)
[2017-11-18 13:43] LABS: ALK PHOS 86 U/L (45-117); BILIRUBIN,TOTAL 0.9 mg/dL (0.2-1.0); TOT PROT 7.1 g/dl (6.4-8.2)
[2017-11-18 13:44] LABS: ACTIVATED PTT 29.8 SECONDS (25.2-36.5)
[2017-11-18] MEDS ORDERED: dilTIAZem HCL 30 MG TABLET (FP) PO ONE (13:59)
[2017-11-18] MEDS ORDERED: dilTIAZem HCL 30 MG TABLET (FP) ONE (14:04)
[2017-11-18] MEDS ORDERED: APIXABAN 5 MG TABLET PO ONE (15:40)
--- NOTE | 2017-11-18 15:44 | HP ---
Admitting History and Physical - Primary Care Physician PCP: Yogesh Butt - Admission History of Present Illness: 72y F hx of htn, RA, vertigo, dl, presents with new onset afib while preping for a colonscopy. Pt noted to have HR of 130s, EKG noted for afib. Pt notes some matamoros for the past few months. Denies any cp, diarphoesis, n/v, abd pain, back pain, leg swelling. 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 Cardiovascular: Yes: HTN, Hyperlipdemia Gastrointestinal: Yes: Constipation Renal/: Yes: Renal Inusuff Musculoskeletal: Yes: Osteoarthritis, Other (DISCOGENIC DISEASE) - Smoking History Smoking history: Never smoked Have you smoked in the past 12 months: No - Alcohol/Substance Use Hx Alcohol Use: No Home Medications - Allergies Allergies/Adverse Reactions: Allergies Allergy/AdvReac Type Severity Reaction Status Date / Time No Known Drug Allergies Allergy Verified 11/18/17 11:40 - Home Medications Home Medications: Ambulatory Orders Losartan/Hydrochlorothiazide [Losartan-Hctz 100-25 mg Tab] 1 each PO DAILY #0 Aspirin [ASA -] 81 mg PO DAILY tab.chew 11/18/16 Meclizine HCl [Antivert -] 25 mg PO DAILY PRN #0 tablet MDD 3 11/18/16 Amlodipine Besylate [Norvasc -] 5 mg PO DAILY tablet 02/22/17 Acetaminophen [Mapap] 500 mg PO PRN 11/18/17 Atorvastatin Ca [Lipitor] 10 mg PO HS 11/18/17 Ibuprofen [Advil -] 200 mg PO PRN PRN 11/18/17 Review of Systems - Review of Systems Cardiovascular: reports: No Symptoms Respiratory: reports: No Symptoms Gastrointestinal: reports: No Symptoms Physical Examination Vital Signs: Vital Signs Temperature 98.1 F 11/18/17 14:06 Pulse Rate 89 11/18/17 14:06 Respiratory Rate 16 11/18/17 14:06 Blood Pressure 115/67 11/18/17 14:06 O2 Sat by Pulse Oximetry (%) 98 11/18/17 14:06 Constitutional: Yes: Calm Cardiovascular: Yes: Pulse Irregular, S1, S2 Respiratory: Yes: CTA Bilaterally Gastrointestinal: Yes: Normal Bowel Sounds, Soft Neurological: Yes: Alert, Oriented Labs: CBC, BMP 11/18/17 11:59 11/18/17 11:59 Imaging - Results Chest X-ray: Report Reviewed (no lung disease) Problem List - Problems (1) Atrial fibrillation with rapid ventricular response Assessment/Plan: [facility] cardiology eval telemtry echo tsh free t4 Code(s): I48.91 - UNSPECIFIED ATRIAL FIBRILLATION (2) Combined hyperlipidemia Assessment/Plan: statin Code(s): E78.2 - MIXED HYPERLIPIDEMIA (3) Hypertension Assessment/Plan: norvasc losartan 50mg Code(s): I10 - ESSENTIAL (PRIMARY) HYPERTENSION Qualifiers:
--- NOTE | 2017-11-18 15:56 | EKG ---
Test Reason : Blood Pressure : / mmHG Vent. Rate : 097 BPM Atrial Rate : 093 BPM P-R Int : 000 ms QRS Dur : 100 ms QT Int : 364 ms P-R-T Axes : 000 -25 009 degrees QTc Int : 462 ms ATRIAL FIBRILLATION INCOMPLETE RIGHT BUNDLE BRANCH BLOCK CANNOT RULE OUT ANTERIOR INFARCT , AGE UNDETERMINED ABNORMAL ECG WHEN COMPARED WITH ECG OF 18-NOV-2017 10:50, NO SIGNIFICANT CHANGE WAS FOUND Confirmed by HASEEB JOEL, JOSE RAMON ([id number]) on 11/18/2017 3:56:37 PM Referred By: Confirmed By:JOSE RAMON MEMBRENO MD
--- NOTE | 2017-11-18 17:01 | CON.CARD ---
Consult Consult Specialty:: Cardiology Referred by:: Dr. Butt Reason for Consultation:: newly dx afib - History of Present Illness Chief Complaint: sent from colonoscopy for new afib History of Present Illness: 72 year old woman with pmh of rheumatoid arthritis, HTN, HLD, possible "small CVA" as per pt, and BPPV planned for routine screening colonoscopy today but prior to procedure found to be in afib with rvr. pt seen and examined in the er in nad. denies any current symptoms. states that she has had intermittent episodes of dyspnea on exertion and does have intermittent vertigo symptoms. she has nearly fallen in the past due to vertigo but states that she can usually sit down and with assistance walk without falling. denies any history of bleeding. no chest pain, palpitations, pnd, orthopnea, LE edema. no syncope or near syncope. 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 Cardio/Vascular: Yes: HTN, Hyperlipdemia Gastrointestinal: Yes: Constipation Renal/: Yes: Renal Inusuff Musculoskeletal: Yes: Osteoarthritis, Other (DISCOGENIC DISEASE) - Alcohol/Substance Use Hx Alcohol Use: No - Smoking History Smoking history: Never smoked Have you smoked in the past 12 months: No Home Medications - Allergies Allergies/Adverse Reactions: Allergies Allergy/AdvReac Type Severity Reaction Status Date / Time No Known Drug Allergies Allergy Verified 11/18/17 11:40 - Home Medications Home Medications: Ambulatory Orders Losartan/Hydrochlorothiazide [Losartan-Hctz 100-25 mg Tab] 1 each PO DAILY #0 Aspirin [ASA -] 81 mg PO DAILY tab.chew 11/18/16 Meclizine HCl [Antivert -] 25 mg PO DAILY PRN #0 tablet MDD 3 11/18/16 Amlodipine Besylate [Norvasc -] 5 mg PO DAILY tablet 02/22/17 Acetaminophen [Mapap] 500 mg PO PRN 11/18/17 Atorvastatin Ca [Lipitor] 10 mg PO HS 11/18/17 Ibuprofen [Advil -] 200 mg PO PRN PRN 11/18/17 Family Disease History - Family Disease History Family History: Denies Review of Systems - Review of Systems Constitutional: denies: No Symptoms, Chills, Diaphoresis, Fever, Lethargy, Loss of Appetite, Malaise, Night Sweats, Unintentional Wgt. Loss, Weakness, Other Eyes: denies: No Symptoms, Blind Spots, Blurred Vision, Double Vision, Eye Pain , Floaters, Photophobia, Recent Change in Vision, Other HENT: denies: No Symptoms, Difficult Swallowing, Ear Discharge, Ear Pain, Epistaxis, Gingival Bleeding, Hearing Loss, Mouth Swelling, Nasal Congestion, Ocular Prosthesis, Throat Pain, Toothache, Ringing in Ears, Other Neck: denies: No Symptoms, Decreased ROM, Lumps, Pain on Movement, Stiffness, Swollen Glands, Tenderness, Other Cardiovascular: denies: No Symptoms, Chest Pain, Edema, Palpitations, Shortness of Breath, Other Respiratory: denies: No Symptoms, Cough, Exercise Intolerance, Hemoptysis, Orthopnea, PND, Snoring, SOB, SOB on Exertion, Wheezing, Other Gastrointestinal: denies: No Symptoms, Abdominal Pain, Bloating, Constipation, Diarrhea, Dysphagia, Indigestion, Melena, Nausea, Rectal Bleeding, Vomiting, Vomiting Blood, Other Genitourinary: denies: No Symptoms, Burning, Discharge, Dysuria, Flank Pain, Frequency, Hematuria, Incontinence, Lesions, Menses, Pain, Testicular Mass, Testicular Pain, Testicular Swelling, Urgency, Vaginal Bleeding, Other Breasts: denies: No Symptoms Reported, See HPI, Breast Implants, Discharge from Nipple, Lumps, Pain, Skin Changes, Other Musculoskeletal: denies: No Symptoms, Back Pain, Crepitus, Decreased ROM, Extremity Pain, Joint Pain, Joint Swelling, Muscle Pain, Muscle Cramps, Muscle Weakness, Other Integumentary: denies: No Symptoms, Blister, Bruising, Change in Color, Eczema, Erythema, Incision, Lesions, Lump, Pallor, Pruritis, Rash, Wound, Other Neurological: denies: No Symptoms, Change in LOC, Change in Speech, Confusion, Dizziness, Headache, Incoordination, Numbness, Parasthesia, Pre-Existing Deficit , Seizure, Syncope, Tremors, Unsteady Gait, Weakness, Other Endocrine: denies: No Symptoms, Excessive Sweating, Flushing, Increased Hunger, Increased Thirst, Intolerance to Cold, Intolerance to Heat, Unexplained Weight Gain, Unexplained Weight Loss, Other Hematology/Lymphatic: denies: No Symptoms, Easily Bruised, Excessive Bleeding, Swollen Glands, Other Psychiatric: denies: No Symptoms, Altered Sleep Pattern, Anxiety, Depression, Hallucinations, Panic, Paranoia, Suicidal, Other - Risk Factors Known Risk Factors: Yes: Age, Hypercholesterolemia, Hypertension Vital Signs: Vital Signs Temperature 98.1 F 11/18/17 14:06 Pulse Rate 89 11/18/17 14:06 Respiratory Rate 16 11/18/17 14:06 Blood Pressure 115/67 11/18/17 14:06 O2 Sat by Pulse Oximetry (%) 98 11/18/17 14:06 Constitutional: Yes: Well Nourished, No Distress, Calm Eyes: Yes: WNL, Conjunctiva Clear, EOM Intact, PERRL HENT: Yes: WNL, Atraumatic, Normocephalic Neck: Yes: WNL, Supple, Trachea Midline Respiratory: Yes: WNL, Regular, CTA Bilaterally. No: Rales, Rhonchi, SOB, Wheezes Gastrointestinal: Yes: WNL, Normal Bowel Sounds, Soft. No: Distention, Tenderness Renal/: Yes: WNL Cardiovascular: Yes: Pulse Irregular. No: Regular Rate and Rhythm, Bradycardia , Tachycardia, Gallop, Rub, Varicosities JVD: No Carotid Bruit: No PMI: Non-Displaced Heart Sounds: Yes: S1, S2. No: Split S2, S3, S4, Clicks, Gallop, Rub, Bruit Murmur: No: Systolic Murmur, Diastolic Murmur Musculoskeletal: Yes: WNL Extremities: Yes: WNL Edema: No Peripheral Pulses WNL: Yes Peripheral Pulses: 2+ Left Doralis Pedis, 2+ Right Dorsalis Pedis Integumentary: Yes: WNL Neurological: Yes: WNL, Alert, Oriented, Cran Nerves II-XII Intact ...Motor Strength: WNL Psychiatric: Yes: WNL, Alert, Oriented - Other Data Labs, Other Data: CBC, BMP 11/18/17 11:59 11/18/17 11:59 INR, PTT INR 1.18 (0.83-1.09) H 11/18/17 12:31 Troponin, BNP 11/18/17 11/18/17 11:59 12:31 Troponin I < 0.02 Cancelled Troponin, BNP 11/18/17 11/18/17 11:59 12:31 Troponin I < 0.02 Cancelled ekg-Afib 97bpm, incomplete rbbb Imaging - Results Chest X-ray: Report Reviewed, Image Reviewed EKG: Report Reviewed, Image Reviewed Other: Report Reviewed, Image Reviewed Assessment/Plan 72 year old woman with pmh of rheumatoid arthritis, HTN, HLD, possible "small CVA" as per pt, and BPPV planned for routine screening colonoscopy today but prior to procedure found to be in afib with rvr. pt seen and examined in the er in nad. denies any current symptoms. states that she has had intermittent episodes of dyspnea on exertion and does have intermittent vertigo symptoms. she has nearly fallen in the past due to vertigo but states that she can usually sit down and with assistance walk without falling. denies any history of bleeding. no chest pain, palpitations, pnd, orthopnea, LE edema. no syncope or near syncope. Afib-newly dx with RVR -likely paroxysmal last ekg in emr 02/2017 was nsr -possibly stimulated by bowel prep for colonoscopy -IVF hydration as needed -cont cardizem, can change to Cardizem CD 120mg daily and titrate as needed -Eliquis started, cont eliquis 5mg bid, discussed risk vs benefit with pt and family Last echo 11/2016 showed normal LV systolic function, mod-sev TR, mild to mod PAH , mild MR -a repeat echo was ordered, fup results -monitor on tele overnight, if converts to NSR or if stays in AF but heart rate is adequately controlled, pt can likely be discharged home tomorrow with outpatient fup.
[2017-11-18] MEDS ORDERED: dilTIAZem HCL 30 MG TABLET (FP) PO SCH (18:00)
[2017-11-18] MEDS ORDERED: dilTIAZem HCL 60 MG TABLET (FP) ONE (18:16)
[2017-11-18 18:31] LABS: URINE APPEARANCE CLEAR; URINE BILIRUBIN NEGATIVE (<2.0 mg/dL); URINE COLOR LTYELLOW; URINE GLUCOSE (UA) NEGATIVE (NEGATIVE); URINE KETONE NEGATIVE (NEGATIVE); URINE LEUK ESTERASE NEGATIVE (NEGATIVE); URINE NITRITE NEGATIVE (NEGATIVE); URINE PROTEIN NEGATIVE (NEGATIVE); URINE UROBILINOGEN NEGATIVE mg/dL (0.2-1.0)
[2017-11-18] MEDS ORDERED: ATORVASTATIN CA 20 MG TABLET (FP) PO SCH (22:00)
[2017-11-19] MEDS ORDERED: APIXABAN 5 MG TABLET PO SCH (06:00)
[2017-11-19 06:35] LABS: BASO % 0.6 % (0-2.0); EOS % 1.9 % (0-4.5); HEMATOCRIT 38.1 % (32.4-45.2); HEMOGLOBIN 12.2 GM/dL (10.7-15.3); LYMPH % 48.3 % (8-40); MCH 28.3 pg (25.7-33.7); MCHC 31.9 g/dl (32.0-36.0); MEAN CELL VOLUME 88.7 fl (80-96); MEAN PLT VOLUME 10.6 fl (7.5-11.1); MONO % 7.6 % (3.8-10.2); NEUT % 41.6 % (42.8-82.8); PLATELET COUNT 193 K/MM3 (134-434); RDW 14.7 % (11.6-15.6); WHITE BLOOD COUNT 3.6 K/mm3 (4.0-10.0)
[2017-11-19 07:20] LABS: ALBUMIN 3.4 g/dl (3.4-5.0); ALK PHOS 76 U/L (45-117); ANION GAP 5 MMOL/L (8-16); BILIRUBIN,TOTAL 0.6 mg/dL (0.2-1.0); BLOOD UREA NITROGEN 14 mg/dL (7-18); CALCIUM 8.3 mg/dL (8.5-10.1); CHLORIDE 108 mmol/L (98-107); CO2 30 mmol/L (21-32); CREATININE 0.8 mg/dL (0.55-1.02); GLUCOSE,RANDOM 101 mg/dL (74-106); MAGNESIUM 2.4 mg/dL (1.8-2.4); PHOSPHOROUS 4.3 mg/dL (2.5-4.9); POTASSIUM 4.5 mmol/L (3.5-5.1); SGOT/AST 13 U/L (15-37); SGPT/ALT 13 U/L (12-78); SODIUM 143 mmol/L (136-145); TOT PROT 6.6 g/dl (6.4-8.2)
--- NOTE | 2017-11-19 09:07 | PN ---
Progress Note, Physician Chief Complaint: New Onset Afib History of Present Illness: NAD Seen by cardiology started on Cardizem CD + Eliquis Echo pending Possible d/c today - Current Medication List Current Medications: Active Medications Apixaban (Eliquis -) 5 mg PO BID@0600,1800 [facility] Last Admin: 11/19/17 08:16 Dose: 5 mg Atorvastatin Calcium (Lipitor -) 20 mg PO HS [facility] Last Admin: 11/18/17 21:45 Dose: 20 mg Diltiazem HCl (Cardizem Cd -) 120 mg PO DAILY [facility] Last Admin: 11/18/17 18:15 Dose: 120 mg - Objective Vital Signs: Vital Signs Temperature 97.5 F L 11/19/17 06:00 Pulse Rate 100 H 11/19/17 06:00 Respiratory Rate 20 11/19/17 06:00 Blood Pressure 132/75 11/19/17 06:00 O2 Sat by Pulse Oximetry (%) 98 11/19/17 00:59 Constitutional: Yes: Well Nourished, No Distress, Calm Cardiovascular: Yes: Pulse Irregular Respiratory: Yes: Regular Gastrointestinal: Yes: Normal Bowel Sounds, Soft Musculoskeletal: Yes: WNL Extremities: Yes: WNL Neurological: Yes: Alert, Oriented Psychiatric: Yes: Alert, Oriented Labs: CBC, BMP 11/19/17 06:00 11/19/17 06:00 INR, PTT INR 1.18 (0.83-1.09) H 11/18/17 12:31 Problem List - Problems (1) Atrial fibrillation with rapid ventricular response Assessment/Plan: -Cardizem CD 120 mg po daily -Eliquis 5 mg po BID -F/U with Cardiology -Echo today -Tele monitoring -D/C Amlodipine, Losartan+hctz and NSAID's Code(s): I48.91 - UNSPECIFIED ATRIAL FIBRILLATION Assessment/Plan see problem list
--- NOTE | 2017-11-19 09:20 | EKG ---
Test Reason : Blood Pressure : / mmHG Vent. Rate : 093 BPM Atrial Rate : 087 BPM P-R Int : 000 ms QRS Dur : 098 ms QT Int : 380 ms P-R-T Axes : 000 -14 -29 degrees QTc Int : 472 ms ATRIAL FIBRILLATION INCOMPLETE RIGHT BUNDLE BRANCH BLOCK ABNORMAL ECG WHEN COMPARED WITH ECG OF 18-NOV-2017 11:43, NO SIGNIFICANT CHANGE WAS FOUND Confirmed by DANAE KENNEDY MD ([id number]) on 11/19/2017 9:19:57 AM Referred By: Confirmed By:DANAE KENNEDY MD
[2017-11-19 09:57] VITALS: TEMP 98.2
--- NOTE | 2017-11-19 12:23 | PN ---
Progress Note, Physician Chief Complaint: no new complaints tele af rvr History of Present Illness: 72 year old woman with pmh of rheumatoid arthritis, HTN, HLD, possible "small CVA" as per pt, and BPPV planned for routine screening colonoscopy today but prior to procedure found to be in afib with rvr. pt seen and examined in the er in nad. denies any current symptoms. states that she has had intermittent episodes of dyspnea on exertion and does have intermittent vertigo symptoms. she has nearly fallen in the past due to vertigo but states that she can usually sit down and with assistance walk without falling. denies any history of bleeding. no chest pain, palpitations, pnd, orthopnea, LE edema. no syncope or near syncope. started cardizem and eliquis. Last echo 11/2016 showed normal LV systolic function, mod-sev TR, mild to mod PAH , mild MR echo 11/19/17: tds low normal EF, mild mr/tr FCDAOV. - Current Medication List Current Medications: Active Medications Apixaban (Eliquis -) 5 mg PO BID@0600,1800 [facility] Last Admin: 11/19/17 08:16 Dose: 5 mg Atorvastatin Calcium (Lipitor -) 20 mg PO HS [facility] Last Admin: 11/18/17 21:45 Dose: 20 mg Diltiazem HCl (Cardizem Cd -) 120 mg PO DAILY [facility] Last Admin: 11/19/17 09:56 Dose: 120 mg - Objective Vital Signs: Vital Signs Temperature 98.2 F 11/19/17 09:54 Pulse Rate 85 11/19/17 09:54 Respiratory Rate 17 11/19/17 09:54 Blood Pressure 123/71 11/19/17 09:54 O2 Sat by Pulse Oximetry (%) 98 11/19/17 00:59 Constitutional: Yes: No Distress, Calm Eyes: Yes: EOM Intact HENT: Yes: Normocephalic Neck: Yes: Trachea Midline Cardiovascular: Yes: Tachycardia, Pulse Irregular Respiratory: Yes: CTA Bilaterally Gastrointestinal: Yes: Normal Bowel Sounds, Soft Musculoskeletal: Yes: WNL Extremities: Yes: WNL Edema: No Labs: CBC, BMP 11/19/17 06:00 11/19/17 06:00 INR, PTT INR 1.18 (0.83-1.09) H 11/18/17 12:31 Assessment/Plan 72 year old woman with pmh of rheumatoid arthritis, HTN, HLD, possible "small CVA" as per pt, and BPPV planned for routine screening colonoscopy today but prior to procedure found to be in afib with rvr. pt seen and examined in the er in nad. denies any current symptoms. states that she has had intermittent episodes of dyspnea on exertion and does have intermittent vertigo symptoms. she has nearly fallen in the past due to vertigo but states that she can usually sit down and with assistance walk without falling. denies any history of bleeding. no chest pain, palpitations, pnd, orthopnea, LE edema. no syncope or near syncope. Afib-newly dx with RVR -likely paroxysmal last ekg in emr 02/2017 was nsr -possibly stimulated by bowel prep for colonoscopy -IVF hydration as needed -cont cardizem, can change to Cardizem CD 120mg daily and titrate as needed -Eliquis started, cont eliquis 5mg bid, discussed risk vs benefit with pt and family Last echo 11/2016 showed normal LV systolic function, mod-sev TR, mild to mod PAH , mild MR -a repeat echo 11/19/17 showed low normal EF mild mr/tr -increase diltiazem for better rate control. -her mild reduction in EF is probably due to uncontrolled rates in atrial fibrillation. Can get ischemia workup as outpatient.
[2017-11-19 16:12] VITALS: BP 128/60; PULSE 92
== END 2017-11-19 15:42 | disposition home or self-care (01) | DRG 310 ==
LOC: JER 11:35 → JERBED 15:32 → J4S 20:02
PROVIDERS: ADMIT Family Medicine; ATTEND Family Medicine
DX: I48.0 Paroxysmal atrial fibrillation (principal); R00.0 Tachycardia, unspecified; M06.9 Rheumatoid arthritis, unspecified; H81.10 Benign paroxysmal vertigo, unspecified ear; N28.9 Disorder of kidney and ureter, unspecified; E78.5 Hyperlipidemia, unspecified; I10 Essential (primary) hypertension; K59.00 Constipation, unspecified; R42 Dizziness and giddiness; M19.90 Unspecified osteoarthritis, unspecified site; I45.10 Unspecified right bundle-branch block; Z96.653 Presence of artificial knee joint, bilateral; Z86.73 Personal history of transient ischemic attack (TIA), and cerebral infarction without residual deficits
CPT/HCPCS: 36415; 71045-TC-FY; 80053; 81003; 82550; 83735; 84100; 84439; 84443; 84484; 85025; 85610; 85730; 86850; 86900; 86901; 87086; 93005; 93010; 93306-TC; 99285-25

== ENCOUNTER 2018-09-02 11:03 | Inpatient (IN) | payer OTHER ==
--- NOTE | 2018-09-02 12:15 | PDOC ---
History of Present Illness - General Chief Complaint: Shortness of Breath Stated Complaint: SENT BY PCP Time Seen by Provider: 09/02/18 12:11 History Source: Patient Exam Limitations: No Limitations - History of Present Illness Initial Comments: 09/02/18 12:14 73 YOF with h/o A-fib with RVR, rheumatoid arthritis, shoulder arthroscopy with chronic R>L shoulder pain, BLE knee replacements, HTN, HLD, and BPPV who was referred by PCP DR. Butt to come to the ED today after found to have A-fib with RVR on EKG in their clinic today. The patient herself notes right shoulder pain much worse than her normal baseline over the past couple of days, >3 lb weight gain in the past few days, cough, difficulty laying down flat, and BLE swelling/vague pain. She additionally has head-to-toe body aches and headache. Denies f/c/n/v/d/c, dysuria, or other symptoms. Denies estrogen use, immobility , recent illness, recent long trips, one-sided calf pain/swelling, or personal or family h/o blood clots. Past History - Past Medical History Allergies/Adverse Reactions: Allergies Allergy/AdvReac Type Severity Reaction Status Date / Time No Known Drug Allergies Allergy Verified 09/02/18 11:24 Home Medications: Ambulatory Orders Meclizine HCl [Antivert -] 25 mg PO DAILY PRN #0 tablet MDD 3 11/18/16 Acetaminophen [Mapap] 500 mg PO PRN 11/18/17 Diltiazem Cd [Cardizem Cd -] 360 mg PO DAILY 09/02/18 Ergocalciferol [Vitamin D2] 50,000 unit PO Q7D@1000 09/02/18 Lisinopril/Hydrochlorothiazide [Lisinopril-Hctz 20-25 mg Tab] 1 each PO DAILY Warfarin Na [Coumadin] 4 mg PO DAILY 09/02/18 Warfarin Na [Coumadin] 5 mg PO DAILY 09/02/18 Anemia: No ( CHILD) Asthma: No Cancer: No Cardiac Disorders: No CVA: No COPD: No CHF: No Dementia: No Diabetes: No GI Disorders: No (CONSTIPATION) Disorders: No HTN: Yes Hypercholesterolemia: Yes Liver Disease: No Seizures: No Thyroid Disease: No - Surgical History Abdominal Surgery: No Appendectomy: No Cardiac Surgery: No Cholecystectomy: No Lung Surgery: No Neurologic Surgery: No Orthopedic Surgery: Yes (R TKR 1999/DEBRIDMENT 2016/L TKR 2004) - Immunization History Immunization Up to Date: Yes - Suicide/Smoking/Psychosocial Hx Smoking History: Never smoked Have you smoked in the past 12 months: No Hx Alcohol Use: No Drug/Substance Use Hx: No Substance Use Type: None Hx Substance Use Treatment: No Review of Systems - Review of Systems Able to Perform ROS?: Yes Comments:: 09/02/18 13:00 GEN: malaise, generalized weakness, no fever, chills, or weight change HEENT: no ear pain, sore throat, vision change, or eye pain CV: palpitations, edema, no chest pain, lightheadedness, or syncope RESP: cough, or SOB GI: no abdominal pain, nausea, vomiting, diarrhea, constipation, or white/black/ bloody stool : no dysuria, hematuria, incontinence, retention, bleeding, or discharge MSK: R>L shoulder pain NEURO: no headache, seizure, vertigo, numbness, tingling, or focal weakness PSYCH: no substance use, no behavior change SKIN: no jaundice, no rash ROS otherwise negative except as noted in HPI *Physical Exam - Vital Signs Last Vital Signs Temp Pulse Resp BP Pulse Ox 98.5 F 114 H 22 H 178/102 H 99 09/02/18 11:10 09/02/18 11:10 09/02/18 11:10 09/02/18 11:10 09/02/18 11:10 - Physical Exam Comments: 09/02/18 13:00 GENERAL: uncomfortable-appearing, A/Ox4, mild distress, answers questions appropriately, speaking full sentences, HEENT: PERRLA, EOMI, moist mucous membranes NECK/BACK: no midline ttp, no spinal stepoff or deformity, no hematoma, full ROM , neck supple CARDIOVASCULAR: irregularly irregular and tachycardic, normal S1S2, no MGR, strong peripheral pulses, capillary refill <2 seconds, extremities wwp, BLE nonpitting edema LUNGS/RESPIRATORY: mild respiratory distress, a bit tachypneic, but CTAB GI/ABDOMEN: symmetric ibcl-by-kuis, normoactive BS, soft, no ttp, no midline pulsatile masses : no CVA tenderness EXTREMITIES: no muscle atrophy, no acute deformity, BLE non-pitting edema, no palpable cord, no calf pain SKIN: BLE anterior knee scars from prior surgeries which are well healed, skin otherwise warm and dry, no pallor, no jaundice, no rash, no bruising, no skin breakdown, no cuts, no lesions NEUROLOGICAL: GCS 15, CN II-XII grossly intact, 5/5 strength proximally and distally, no facial droop Procedures - Bedside Ultrasound Remarks: Dr. Wolf has performed the following POCUS studies: STUDY: Echocardiogram INDICATION: A-fib with RVR, shoulder pain FINDINGS: no pericardial effusion, good contractility, normal chamber sizes, IVC engorged CONCLUSION: possible hypervolemia based on IVC but otherwise normal bedside echo STUDY: Lungs INDICATION: SOB FINDINGS: Good lung sliding, no B lines CONCLUSION: Normal lung exam STUDY: BLE venous INDICATION: BLE swelling, shoulder pain, SOB, r/o DVT/PE FINDINGS: veins compressible from proximal femoral-saphenous convergence to popliteal fossa CONCLUSION: no e/o DVT Heart Score/ECG Review #1 09/02/18 10:59 A-fib with RVR with rate 101, borderline left axis deviation, normal QTc, Q wave in III (old compared with EKGs from 2018), incomplete RBBB, no ischemic ST- T changes ED Treatment Course - LABORATORY CBC & Chemistry Diagram: 09/02/18 12:50 09/02/18 12:50 Medical Decision Making - Medical Decision Making 09/02/18 13:10 Adult female Pt p/w rapid palpitations. Initial Vital Signs Temp Pulse Resp BP Pulse Ox 98.5 F 114 H 22 H 178/102 H 99 09/02/18 11:10 09/02/18 11:10 09/02/18 11:10 09/02/18 11:10 09/02/18 11:10 Exam: As noted in Physical Exam section. DDX IBNLT: A-fib with RVR d/t PE, ischemia (ACS), structural heart condition, bronchitis/PNA, sepsis/shock, anemia, PTX, metabolic (e.g. DKA, hypoglycemia), thyroid condition, medication effect, substance use, etc. W/U ordered: Monitor EKG CXR CBCD CMP Mg Phos TSH Cardiac Panel UA UCx hCG TX ordered: ASA (but patient refuses), Ofirmev EKG: Reviewed; results as noted in ECG Review section. 09/02/18 12:[address] Butt's request, Decision to Admit order should be placed to him and Dr. Burton consulted. Blank Decision to Admit order placed at this time, consult order placed. 09/02/18 13:20 Dr. Olson seeing patient in the ED at this time. A-fib TX: The Pt is stable currently (no AMS, pulmonary edema, chest pain, or sBP<90). Therefore they do not require defibrillation or DC cardioversion at this time. She has chronic A-fib. Repeat EKG: Reviewed; results as noted in ECG Review section. RAD/CHEST X-RAY PORTABLE* Chest: Chest pain A single AP view of the chest reveals clear lungs, slightly unfolded aorta, normal flor and large heart. The lungs are well-expanded with no sign of infiltrate or failure. The angles are sharp. Soft tissues are intact. There are degenerative spine and shoulder changes. Since 11/18/2017, there is no change of an adverse nature. CT/CHEST CTA Chest CT angiography Clinical information given: dyspnea, shoulder pain; evaluate for pulmonary emboli Multiplanar imaging was performed following the intravenous bolus administration of nonionic contrast. No discrete pulmonary embolus is seen. There is no evidence of pneumothorax, infiltrate or pleural effusion. Cardiomegaly which is probably mild. Correlate with echocardiography. No pericardial effusion is seen. Mild bilateral flank subcutaneous edema which is probably mildly increased in comparison to CT studies of 02/20/2017 and 02/22/2018. Interval development of a 4 mm noncalcified right upper lobe nodule is seen. Stable benign 3 mm left upper lobe noncalcified nodule. No pathologic lymphadenopathy is identified on the basis of CT size criteria. Small calcified left hilar lymph node consistent with prior granulomatous disease. There is no aortic aneurysm. The visualized osseous structures demonstrate no obvious CT evidence of acute pathology. Impression: No CT evidence of pulmonary embolism. Cardiomegaly which is probably mild. Refluxed contrast is seen within the hepatic veins which could be on the basis of right-sided cardiac dysfunction. Mild bilateral flank subcutaneous edema which is probably mildly increased in comparison to previous exams. Interval development of a 4 mm noncalcified right upper lobe pulmonary nodule is noted. Correlation with 3 month follow-up noncontrast CT is suggested. Small calcified left hilar lymph node consistent with prior granulomatous disease. The partially imaged glenohumeral joints demonstrate degenerative changes, left more than right. Laboratory Tests 09/02/18 09/02/18 09/02/18 12:50 12:50 12:50 WBC 3.4 L RBC 4.46 Hgb 13.2 Hct 40.6 MCV 91.0 MCH 29.5 MCHC 32.4 RDW 14.4 Plt Count 212 MPV 11.6 H Absolute Neuts (auto) 1.7 Neutrophils % 50.8 D Lymphocytes % 38.3 D Monocytes % 7.9 Eosinophils % 1.7 Basophils % 1.3 Nucleated RBC % 0 Platelet Estimate Adequate Platelet Comment No clumping noted PT with INR 24.40 H INR 2.05 H PTT (Actin FS) 38.7 H Sodium 143 Potassium 4.8 Chloride 107 Carbon Dioxide 30 Anion Gap 7 L BUN 8.4 Creatinine 0.7 Est GFR (CKD-EPI)AfAm 101.03 Est GFR (CKD-EPI)NonAf 87.17 Random Glucose 91 Calcium 9.1 Magnesium 2.4 Total Bilirubin 0.5 AST 35 ALT 57 Alkaline Phosphatase 92 Creatine Kinase 99 Troponin I < 0.02 B-Natriuretic Peptide 1066.8 H Total Protein 7.2 Albumin 3.8 Blood Type Antibody Screen 09/02/18 12:50 WBC RBC Hgb Hct MCV MCH MCHC RDW Plt Count MPV Absolute Neuts (auto) Neutrophils % Lymphocytes % Monocytes % Eosinophils % Basophils % Nucleated RBC % Platelet Estimate Platelet Comment PT with INR INR PTT (Actin FS) Sodium Potassium Chloride Carbon Dioxide Anion Gap BUN Creatinine Est GFR (CKD-EPI)AfAm Est GFR (CKD-EPI)NonAf Random Glucose Calcium Magnesium Total Bilirubin AST ALT Alkaline Phosphatase Creatine Kinase Troponin I B-Natriuretic Peptide Total Protein Albumin Blood Type O POSITIVE Antibody Screen Negative *DC/Admit/Observation/Transfer Diagnosis at time of Disposition: Atrial fibrillation with rapid ventricular response - Discharge Dispostion Condition at time of disposition: Stable Decision to Admit order: Yes - Referrals - Patient Instructions - Post Discharge Activity
[2018-09-02] MEDS ORDERED: ACETAMINOPHEN 1000 MG/100 ML VIAL (NON FORMULARY) IVPB ONE (12:30)
[2018-09-02] MEDS ORDERED: ASPIRIN 325 MG TABLET PO ONE (12:30)
[2018-09-02] MEDS ORDERED: ACETAMINOPHEN INJECTION 100 ML IVPB ONE (12:50)
[2018-09-02] MEDS ORDERED: ASPIRIN 325 MG TABLET ONE (12:50)
[2018-09-02 13:00] LABS: BASO % 1.3 % (0-2.0); EOS % 1.7 % (0-4.5); HEMATOCRIT 40.6 % (32.4-45.2); HEMOGLOBIN 13.2 GM/dL (10.7-15.3); LYMPH % 38.3 % (8-40); MCH 29.5 pg (25.7-33.7); MCHC 32.4 g/dl (32.0-36.0); MEAN PLT VOLUME 11.6 fl (7.5-11.1); MONO % 7.9 % (3.8-10.2); NEUT % 50.8 % (42.8-82.8); PLATELET COUNT 212 K/MM3 (134-434); RBC 4.46 M/mm3 (3.60-5.2); RDW 14.4 % (11.6-15.6); WHITE BLOOD COUNT 3.4 K/mm3 (4.0-10.0)
[2018-09-02 13:19] LABS: INR 2.05 (0.83-1.09); PROTHROMBIN TIME (PATIENT) 24.4 SEC (9.7-13.0)
--- NOTE | 2018-09-02 13:20 | PDOC ---
Documentation entered by Rojas Ruby SCRIBE, acting as scribe for Mark Buckley MD. Mark Buckley MD: This documentation has been prepared by the Tung gage Daniel, SCRIBE, under my direction and personally reviewed by me in its entirety. I confirm that the documentation accurately reflects all work, treatment, procedures, and medical decision making performed by me. Attending Attestation - Resident Resident Name: Lidya Jean Baptiste - ED Attending Attestation I have performed the following: I have examined & evaluated the patient, The case was reviewed & discussed with the resident, I agree w/resident's findings & plan, Exceptions are as noted - HPI HPI: 09/02/18 12:31 The patient is a 73 year old female with a past medical history of afib with RVR (EF was 69% in 04/[address] Butt), HTN, HLD, and bilateral shoulder OA s/p arthroscopy here today for evaluation of worsening shortness of breath and shoulder pain. The patient reports that she has been having worsening shortness of breath, dyspnea on exertion, right greater than left shoulder pain, weakness , and chest pain due to cough. She also notes bilateral lower extremity edema and calf pain. Patient was seen in Dr. White office today and was sent to the ER. Patient denies headache, lightheadedness. Denies fever, chills. Denies nausea, vomiting, diarrhea, abdominal pain. Denies travel. Allergies: NKDA Surgical history: bilateral TKR PCP: Yogesh Butt - Physicial Exam PE: 09/02/18 12:31 agree with resident exam - Medical Decision Making 09/02/18 13:13 73yo F presents to the ED with shoulder pain, SOB, b/l LE pain Vitals with tachycardia and hypertension Pt is in Afib with RVR DDx inlcudes ACS vs PE vs CHF vs PNA Plan for: tele labs CTA admit Heart Score/ECG Review #1 09/02/18 13:17 Twelve-lead EKG was performed and reviewed by me. Atrial fibrillation with rapid ventricular response. Rate 101. Normal axis. No ST elevations. Diffuse T- wave flattening.
[2018-09-02 13:22] LABS: ACTIVATED PTT 38.7 SECONDS (25.2-36.5)
[2018-09-02 13:29] LABS: PLATELET ESTIMATE ADEQUATE
--- NOTE | 2018-09-02 13:45 | CON.CARD ---
Consult Consult Specialty:: cardiology Referred by:: Daquan Reason for Consultation:: Leg edema - History of Present Illness Chief Complaint: Leg edema History of Present Illness: The patient is a 73-year-old female, we've a history of hypertension, hyperlipidemia, vertigo, possibly old stroke, atrial fibrillation on Coumadin, who was sent by her primary care physician to the emergency room because of lower extremity edema. The patient denies chest pains and shortness of breath. She is breathing quite comfortably. No palpitations. She complains of diffuse body aches and chest wall pains while coughing. - Past Medical History PRESTIDIGITATOR: Yes: CVA, Vertigo Cardio/Vascular: Yes: CHF, HTN, Hyperlipdemia, Other (atrial fibrillation ) Gastrointestinal: Yes: Constipation Renal/: Yes: Renal Inusuff Musculoskeletal: Yes: Osteoarthritis, Other (DISCOGENIC DISEASE) - Alcohol/Substance Use Hx Alcohol Use: No - Smoking History Smoking history: Never smoked Have you smoked in the past 12 months: No Home Medications - Allergies Allergies/Adverse Reactions: Allergies Allergy/AdvReac Type Severity Reaction Status Date / Time No Known Drug Allergies Allergy Verified 09/02/18 11:24 - Home Medications Home Medications: Ambulatory Orders Meclizine HCl [Antivert -] 25 mg PO DAILY PRN #0 tablet MDD 3 11/18/16 Acetaminophen [Mapap] 500 mg PO PRN 11/18/17 Diltiazem Cd [Cardizem Cd -] 360 mg PO DAILY 09/02/18 Ergocalciferol [Vitamin D2] 50,000 unit PO Q7D@1000 09/02/18 Lisinopril/Hydrochlorothiazide [Lisinopril-Hctz 20-25 mg Tab] 1 each PO DAILY Warfarin Na [Coumadin] 4 mg PO DAILY 09/02/18 Warfarin Na [Coumadin] 5 mg PO DAILY 09/02/18 Review of Systems - Review of Systems Constitutional: reports: Weakness Eyes: reports: No Symptoms HENT: reports: No Symptoms Neck: reports: No Symptoms Cardiovascular: reports: No Symptoms Respiratory: reports: No Symptoms Gastrointestinal: reports: No Symptoms Genitourinary: reports: No Symptoms Musculoskeletal: reports: Back Pain Integumentary: reports: No Symptoms Neurological: reports: No Symptoms Endocrine: reports: No Symptoms Hematology/Lymphatic: reports: No Symptoms Psychiatric: reports: No Symptoms Vital Signs: Vital Signs Temperature 98.5 F 09/02/18 11:10 Pulse Rate 114 H 09/02/18 11:10 Respiratory Rate 22 H 09/02/18 11:10 Blood Pressure 178/102 H 09/02/18 11:10 O2 Sat by Pulse Oximetry (%) 100 09/02/18 12:40 Constitutional: Yes: Well Nourished, No Distress, Calm Eyes: Yes: WNL, Conjunctiva Clear, EOM Intact HENT: Yes: WNL, Atraumatic, Normocephalic Neck: Yes: WNL, Supple, Trachea Midline Respiratory: Yes: WNL, Regular, CTA Bilaterally Gastrointestinal: Yes: WNL, Normal Bowel Sounds, Soft Renal/: Yes: WNL Cardiovascular: Yes: Pulse Irregular JVD: No Carotid Bruit: No PMI: Non-Displaced Heart Sounds: Yes: S1, S2 Murmur: Yes: Systolic Murmur, Grade 2 Musculoskeletal: Yes: Back Pain, Muscle Pain Edema: Yes Edema: LLE: Trace, RLE: Trace Peripheral Pulses: 1+ Left Carotid, 1+ Right Carotid, 1+ Left Femoral, 1+ Right Femoral, 1+ Left Popliteal, 1+ Right Popliteal, 1+ Left Doralis Pedis, 1+ Right Dorsalis Pedis Integumentary: Yes: WNL Neurological: Yes: WNL, Alert, Oriented ...Motor Strength: WNL Psychiatric: Yes: WNL, Alert, Oriented - Other Data Labs, Other Data: CBC, BMP 09/02/18 12:50 INR, PTT INR 2.05 (0.83-1.09) H 09/02/18 12:50 Assessment/Plan The patient is a 73-year-old female, we've a history of hypertension, hyperlipidemia, vertigo, possibly old stroke, atrial fibrillation on Coumadin, who was sent by her primary care physician to the emergency room because of lower extremity edema. The patient denies chest pains and shortness of breath. She is breathing quite comfortably. No palpitations. She complains of diffuse body aches and chest wall pains while coughing. There is no evidence of ischemia nor acute coronary syndrome. No CHF. No angina. Mild lower extremity edema. Diffuse body aches. Ventricular rates are reasonably well controlled in atrial fibrillation. INR is at target. Would diuresis with oral Lasix 40 mg by mouth daily. Continue Coumadin and home medications as currently. There is no need for further cardiac workup at this point. There is no need for cardiac monitoring. Cardiac stable. Please do not hesitate to call us PRN.
[2018-09-02 13:58] LABS: ALBUMIN 3.8 g/dl (3.4-5.0); ALK PHOS 92 U/L (45-117); ANION GAP 7 MMOL/L (8-16); BILIRUBIN,TOTAL 0.5 mg/dL (0.2-1); BLOOD UREA NITROGEN 8.4 mg/dL (7-18); CALCIUM 9.1 mg/dL (8.5-10.1); CHLORIDE 107 mmol/L (98-107); CO2 30 mmol/L (21-32); CREATININE 0.7 mg/dL (0.55-1.3); GLUCOSE,RANDOM 91 mg/dL (74-106); MAGNESIUM 2.4 mg/dL (1.8-2.4); N-TERMINAL BNP 1066.8 pg/ml (5-125); POTASSIUM 4.8 mmol/L (3.5-5.1); SGOT/AST 35 U/L (15-37); SGPT/ALT 57 U/L (13-61); SODIUM 143 mmol/L (136-145); TOT PROT 7.2 g/dl (6.4-8.2)
[2018-09-02] MEDS ORDERED: MECLIZINE HCL 25 MG TABLET (FP) PO PRN (16:34)
[2018-09-02] MEDS ORDERED: LISINOPRIL 20 MG TABLET (FP) PO ONE (16:35)
[2018-09-02] MEDS ORDERED: HYDROCHLOROTHIAZIDE 25 MG TABLET (FP) PO ONE (16:35)
[2018-09-02] MEDS ORDERED: LISINOPRIL 20 MG TABLET (FP) ONE (16:37)
[2018-09-02] MEDS ORDERED: HYDROCHLOROTHIAZIDE 25 MG TABLET (FP) ONE (16:37)
[2018-09-02] MEDS ORDERED: PATIENT'S OWN MEDICATION (NON-FORMULARY) (Lisinopril/Hydrochlorothiazide [Lisinopril-Hctz PO SCH (16:45)
--- NOTE | 2018-09-02 16:46 | HP ---
Admitting History and Physical - Primary Care Physician PCP: Yogesh Butt - Admission Chief Complaint: Lower extremity edema, Tachycardia History of Present Illness: Patient is a 73 y/o female with past medical history of HTN, HLD, Vertigo, Afib on Coumadin. Patient was in PMD office when they noticed she had elevated HR 120s accompanied with R sided chest pain and bilateral shoulder pain. Patient states she has also been experiencing SOB with exertion for the past week. She says she can walk no more than 1/2 block before she feels SOB. She has also been experiencing lower extremity edema. 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: Yes: CVA, Vertigo Cardiovascular: Yes: CHF, HTN, Hyperlipdemia, Other (atrial fibrillation ) Gastrointestinal: Yes: Constipation Renal/: Yes: Renal Inusuff Musculoskeletal: Yes: Osteoarthritis, Other (DISCOGENIC DISEASE) - Smoking History Smoking history: Never smoked Have you smoked in the past 12 months: No - Alcohol/Substance Use Hx Alcohol Use: No - Social History Usual Living Arrangement: Yes: Other (granddaughter) ADL: Independent History of Recent Travel: No Home Medications - Allergies Allergies/Adverse Reactions: Allergies Allergy/AdvReac Type Severity Reaction Status Date / Time No Known Drug Allergies Allergy Verified 09/02/18 11:24 - Home Medications Home Medications: Ambulatory Orders Meclizine HCl [Antivert -] 25 mg PO DAILY PRN #0 tablet MDD 3 11/18/16 Acetaminophen [Mapap] 500 mg PO PRN 11/18/17 Diltiazem Cd [Cardizem Cd -] 360 mg PO DAILY 09/02/18 Ergocalciferol [Vitamin D2] 50,000 unit PO Q7D@1000 09/02/18 Lisinopril/Hydrochlorothiazide [Lisinopril-Hctz 20-25 mg Tab] 1 each PO DAILY Warfarin Na [Coumadin] 4 mg PO DAILY 09/02/18 Warfarin Na [Coumadin] 5 mg PO DAILY 09/02/18 Review of Systems - Review of Systems Constitutional: reports: Weakness Eyes: reports: Blurred Vision HENT: reports: No Symptoms Neck: reports: No Symptoms Cardiovascular: reports: Chest Pain, Shortness of Breath Respiratory: reports: No Symptoms, Cough, SOB on Exertion Gastrointestinal: reports: Abdominal Pain Genitourinary: reports: Frequency Breasts: reports: No Symptoms Reported Musculoskeletal: reports: Other (shoulder pain) Integumentary: reports: No Symptoms Neurological: reports: Dizziness, Headache Endocrine: reports: No Symptoms Hematology/Lymphatic: reports: No Symptoms Psychiatric: reports: No Symptoms Physical Examination Vital Signs: Vital Signs Temperature 98.5 F 09/02/18 11:10 Pulse Rate 108 H 09/02/18 16:20 Respiratory Rate 18 09/02/18 16:20 Blood Pressure 178/119 H 09/02/18 16:20 O2 Sat by Pulse Oximetry (%) 97 09/02/18 16:20 Constitutional: Yes: No Distress, Calm Eyes: Yes: Conjunctiva Clear HENT: Yes: Atraumatic Cardiovascular: Yes: Tachycardia, Pulse Irregular Respiratory: Yes: Regular, CTA Bilaterally Gastrointestinal: Yes: Normal Bowel Sounds, Soft, Tenderness (rlq) Musculoskeletal: Yes: WNL Extremities: Yes: WNL Edema: Yes Edema: LLE: Trace, RLE: Trace Peripheral Pulses WNL: Yes Neurological: Yes: Alert, Oriented Psychiatric: Yes: Alert, Oriented Labs: CBC, BMP 09/02/18 12:50 09/02/18 12:50 Imaging - Results Chest X-ray: Report Reviewed Problem List - Problems (1) Atrial fibrillation with rapid ventricular response Assessment/Plan: -Coumadin -monitor INR daily -INR goal 2-3 -cardiology on board -tele monitoring -INR 2.05 Code(s): I48.91 - UNSPECIFIED ATRIAL FIBRILLATION (2) Chronic headaches Assessment/Plan: -Head CT scan -neurology consult Code(s): R51 - HEADACHE (3) Bilateral lower extremity edema Assessment/Plan: -Cardiology on board -Furosemide -Vascular US R/O DVT Code(s): R60.0 - LOCALIZED EDEMA (4) Chest pain Assessment/Plan: -tele monitoring -cardiology on board -trop neg x 1 Code(s): R07.9 - CHEST PAIN, UNSPECIFIED (5) Hypertension Assessment/Plan: -HCTZ and Lisinopril -low Na diet Code(s): I10 - ESSENTIAL (PRIMARY) HYPERTENSION Qualifiers: (6) Shoulder pain, right Assessment/Plan: -Lidoderm patch Code(s): M25.511 - PAIN IN RIGHT SHOULDER Assessment/Plan see problem list dvt ppx
[2018-09-02 21:01] VITALS: BMI 36.0
--- NOTE | 2018-09-02 21:14 | CONSULT ---
Consult - text type - Consultation Consultation Note: NEUROLOGICAL CONSULTATION is greatly appreciated: This 73 yo RH woman with h/o HTN, Chol, and AFib on coumadin, Meclizine; Acetaminophen; Diltiazem; and Lisinopril/Hydrochlorothiazide is admitted with increasing pretibial edema and tachycardia. Patient has had episodic, severe headaches since childhood. Can awaken her from sleep. Throbbing right occipital-> R hemicranial JOY's with N, PP, PP. ++ FH of "Migraines" in 2 daughters and at least 1 granddaughter present at the bedside. Chronic nocturnal leg pain and paresthesiae since early adulthood. "Spread" to arms "years ago.". Burning, throbbing, shooting, aching, numbness, tingling. Did not improve after B/L TKR or after recent shoulder surgery. Severe AM Stiffness. Pains and paresthesiae recur with prolonged sitting, MEGHANA: Obese. No bruits. - SLR. - Sherrie's. S/P B/L TKR and left shoulder arthroscopy. NEURO: MS/Speech: Normal CN II-XII: normal Motor: No drift or tremor. Normal strength, tone and bulk. Reduced KJ' s but Normal AJ's. Toes downgoing. Coord: No FTN dystaxia Sensory: Normal Gait: Stiff-legged. IMP: Normal neurological exam. Migraine headaches. Restless Limbs Syndrome (RLS). SUGGEST: Check Fe++, TIBC, Feritin levels Begin Topiramate 25 mg BID x 2 days then 50 mg BID Begin Pramipexole 0.125 mg BID x 2 days then 0.25 mg BID Neuro f/u as out patient. Thank you very much, Gerry Soto MD
[2018-09-02] MEDS ORDERED: WARFARIN NA 2 MG TABLET (UD) PO SCH (22:00)
[2018-09-02] MEDS: LIDOCAINE PATCH REMOVAL MC SCH (22:32)
[2018-09-02] MEDS: PRAMIPEXOLE DIHYDROCHLORIDE 0.125 MG TABLET PO SCH (22:33)
[2018-09-02] MEDS: TOPIRAMATE 25 MG TABLET (FP) PO SCH (22:33)
[2018-09-02] MEDS: WARFARIN NA 2 MG TABLET (UD) PO SCH (22:41)
[2018-09-03] MEDS: PRAMIPEXOLE DIHYDROCHLORIDE 0.125 MG TABLET PO SCH ×3 (06:56→21:54)
[2018-09-03 08:28] LABS: BASO % 0.9 % (0-2.0); EOS % 2.2 % (0-4.5); HEMATOCRIT 40.8 % (32.4-45.2); HEMOGLOBIN 13.3 GM/dL (10.7-15.3); LYMPH % 35.9 % (8-40); MCH 29.4 pg (25.7-33.7); MCHC 32.6 g/dl (32.0-36.0); MEAN CELL VOLUME 90.2 fl (80-96); MEAN PLT VOLUME 11.7 fl (7.5-11.1); MONO % 8.1 % (3.8-10.2); NEUT % 52.9 % (42.8-82.8); PLATELET COUNT 224 K/MM3 (134-434); RBC 4.52 M/mm3 (3.60-5.2); RDW 14.3 % (11.6-15.6); WHITE BLOOD COUNT 3.5 K/mm3 (4.0-10.0)
[2018-09-03 08:58] LABS: ALBUMIN 3.8 g/dl (3.4-5.0); ALK PHOS 90 U/L (45-117); ANION GAP 6 MMOL/L (8-16); BILIRUBIN,TOTAL 0.5 mg/dL (0.2-1); BLOOD UREA NITROGEN 9.5 mg/dL (7-18); CALCIUM 9.2 mg/dL (8.5-10.1); CHLORIDE 104 mmol/L (98-107); CHOLESTEROL 185 mg/dL (50-200); CO2 31 mmol/L (21-32); CREATININE 0.8 mg/dL (0.55-1.3); GLUCOSE,RANDOM 90 mg/dL (74-106); HDL CHOLESTEROL 56 mg/dL (40-60); MAGNESIUM 2.3 mg/dL (1.8-2.4); N-TERMINAL BNP 1562.1 pg/ml (5-125); PHOSPHOROUS 3.8 mg/dL (2.5-4.9); POTASSIUM 4.2 mmol/L (3.5-5.1); SGOT/AST 24 U/L (15-37); SGPT/ALT 49 U/L (13-61); SODIUM 141 mmol/L (136-145); TOT PROT 6.9 g/dl (6.4-8.2); TRIGLYCERIDES 76 mg/dL (0-150)
[2018-09-03] MEDS: HYDROCHLOROTHIAZIDE 25 MG TABLET (FP) PO SCH (10:47)
[2018-09-03] MEDS: LISINOPRIL 20 MG TABLET (FP) PO SCH (10:47)
[2018-09-03] MEDS: FUROSEMIDE 40 MG TABLET (FP) PO SCH (10:48)
[2018-09-03] MEDS: LIDOCAINE 5% TOPICAL PATCH TP SCH (10:48)
[2018-09-03] MEDS: TOPIRAMATE 25 MG TABLET (FP) PO SCH ×3 (10:49→21:55)
--- NOTE | 2018-09-03 12:06 | PN ---
Progress Note, Physician Chief Complaint: Afib B/L lower extremity swelling History of Present Illness: Previous notes and events reviewed awake and alert NAD sts having palpitations at times lower extremity edema mproving denies chest pain SOB with exertion - Current Medication List Current Medications: Active Medications Diltiazem HCl (Cardizem Cd -) 360 mg PO DAILY [facility] Last Admin: 09/03/18 10:47 Dose: 360 mg Ergocalciferol (Drisdol -) 50,000 unit PO Q7D@1000 [facility] Furosemide (Lasix -) 40 mg PO DAILY [facility] Last Admin: 09/03/18 10:48 Dose: 40 mg Hydrochlorothiazide (Hctz -) 25 mg PO DAILY [facility] Last Admin: 09/03/18 10:47 Dose: 25 mg Lidocaine (Lidoderm Patch -) 1 patch TP DAILY [facility] Last Admin: 09/03/18 10:48 Dose: 1 patch Lisinopril (Prinivil) 20 mg PO DAILY [facility] Last Admin: 09/03/18 10:47 Dose: 20 mg Meclizine HCl (Antivert -) 25 mg PO DAILY PRN PRN Reason: VERTIGO Miscellaneous (Lidoderm Patch Removal) 1 each MC DAILY@2200 [facility] Last Admin: 09/02/18 22:32 Dose: Not Given Pramipexole Dihydrochloride (Mirapex -) 0.125 mg PO TID [facility] Last Admin: 09/03/18 06:56 Dose: 0.125 mg Topiramate (Topamax -) 25 mg PO BID [facility] Last Admin: 09/03/18 10:56 Dose: 25 mg Warfarin Sodium (Coumadin -) 4 mg PO DAILY@1800 [facility] Last Admin: 09/02/18 22:41 Dose: 4 mg - Objective Vital Signs: Vital Signs Temperature 98.2 F 09/03/18 05:00 Pulse Rate 95 H 09/03/18 05:00 Respiratory Rate 20 09/03/18 05:00 Blood Pressure 150/92 09/03/18 05:00 O2 Sat by Pulse Oximetry (%) 99 09/02/18 21:00 Constitutional: Yes: No Distress, Calm Eyes: Yes: Conjunctiva Clear HENT: Yes: Atraumatic Cardiovascular: Yes: Tachycardia, Pulse Irregular Respiratory: Yes: Regular, Diminished Gastrointestinal: Yes: Normal Bowel Sounds, Soft Musculoskeletal: Yes: Muscle Weakness Extremities: Yes: WNL Edema: Yes Edema: LLE: Trace, RLE: Trace Neurological: Yes: Alert, Oriented Psychiatric: Yes: Alert, Oriented Labs: CBC, BMP 09/03/18 06:16 09/03/18 06:16 INR, PTT INR 2.05 (0.83-1.09) H 09/02/18 12:50 - ....Imaging Cat Scan: Report Reviewed Ultrasound: Report Reviewed Problem List - Problems (1) Atrial fibrillation with rapid ventricular response Assessment/Plan: -Coumadin -monitor INR daily -INR goal 2-3 -cardiology on board -tele monitoring -INR 2.05 Code(s): I48.91 - UNSPECIFIED ATRIAL FIBRILLATION (2) Chronic headaches Assessment/Plan: -Head CT scan shows no acute pathology -neurology on board -Sumatriptan and Topamax Code(s): R51 - HEADACHE (3) Bilateral lower extremity edema Assessment/Plan: -Cardiology on board -Furosemide -Vascular US neg for DVT Code(s): R60.0 - LOCALIZED EDEMA (4) Chest pain Assessment/Plan: -tele monitoring -cardiology on board -trop neg x 1 Code(s): R07.9 - CHEST PAIN, UNSPECIFIED (5) Hypertension Assessment/Plan: -HCTZ and Lisinopril -low Na diet Code(s): I10 - ESSENTIAL (PRIMARY) HYPERTENSION Qualifiers: (6) Shoulder pain, right Assessment/Plan: -Lidoderm patch Code(s): M25.511 - PAIN IN RIGHT SHOULDER Assessment/Plan see problem list dvt ppx
--- NOTE | 2018-09-03 12:59 | EKG ---
Test Reason : Blood Pressure : / mmHG Vent. Rate : 101 BPM Atrial Rate : 141 BPM P-R Int : 000 ms QRS Dur : 098 ms QT Int : 340 ms P-R-T Axes : 000 -34 012 degrees QTc Int : 440 ms ATRIAL FIBRILLATION WITH RAPID VENTRICULAR RESPONSE LEFT AXIS DEVIATION LOW VOLTAGE QRS INCOMPLETE RIGHT BUNDLE BRANCH BLOCK CANNOT RULE OUT ANTERIOR INFARCT , AGE UNDETERMINED ABNORMAL ECG Confirmed by DANAE KENNEDY MD ([id number]) on 09/03/2018 12:59:43 PM Referred By: Confirmed By:DANAE KENNEDY MD
[2018-09-03 13:19] LABS: INR 2.16 (0.83-1.09); PROTHROMBIN TIME (PATIENT) 25.7 SEC (9.7-13.0)
[2018-09-03] MEDS: WARFARIN NA 2 MG TABLET (UD) PO SCH (17:48)
[2018-09-03] MEDS: LIDOCAINE PATCH REMOVAL MC SCH (21:13)
[2018-09-03] MEDS ORDERED: PT OWN MED DRAWER 7, Y5N ONE (21:15)
[2018-09-04 04:08] LABS: SERUM IRON SATURATION 14 % (15-55); TOTAL IRON BINDING CAPACITY 298 ug/dL (250-450); UIBC 256 ug/dL (118-369)
[2018-09-04] MEDS: PRAMIPEXOLE DIHYDROCHLORIDE 0.125 MG TABLET PO SCH ×3 (06:27→21:48)
[2018-09-04 07:30] LABS: HEMATOCRIT 39.8 % (32.4-45.2); HEMOGLOBIN 12.9 GM/dL (10.7-15.3); MCH 29.3 pg (25.7-33.7); MCHC 32.4 g/dl (32.0-36.0); MEAN CELL VOLUME 90.6 fl (80-96); MEAN PLT VOLUME 11.9 fl (7.5-11.1); PLATELET COUNT 217 K/MM3 (134-434); RDW 14.3 % (11.6-15.6); WHITE BLOOD COUNT 3.7 K/mm3 (4.0-10.0)
[2018-09-04 07:37] LABS: INR 2.44 (0.83-1.09); PROTHROMBIN TIME (PATIENT) 29.1 SEC (9.7-13.0)
[2018-09-04 07:56] LABS: ALBUMIN 3.6 g/dl (3.4-5.0); BILIRUBIN,TOTAL 0.4 mg/dL (0.2-1); BLOOD UREA NITROGEN 14.4 mg/dL (7-18); CREATININE 0.8 mg/dL (0.55-1.3); POTASSIUM 3.9 mmol/L (3.5-5.1); TOT PROT 6.6 g/dl (6.4-8.2)
[2018-09-04] MEDS ORDERED: PT OWN MED DRAWER 7, Y5N ONE (11:02)
[2018-09-04] MEDS: TOPIRAMATE 25 MG TABLET (FP) PO SCH ×2 (11:04→21:48)
[2018-09-04] MEDS: LIDOCAINE 5% TOPICAL PATCH TP SCH (11:04)
[2018-09-04] MEDS: LISINOPRIL 20 MG TABLET (FP) PO SCH (11:04)
[2018-09-04] MEDS: HYDROCHLOROTHIAZIDE 25 MG TABLET (FP) PO SCH (11:04)
[2018-09-04] MEDS: FUROSEMIDE 40 MG TABLET (FP) PO SCH (11:04)
--- NOTE | 2018-09-04 11:05 | PN ---
Progress Note, Physician Chief Complaint: Afib B/L lower extremity swelling History of Present Illness: Previous notes and events reviewed awake and alert NAD lower extremity edema mproving denies chest pain SOB with exertion - Current Medication List Current Medications: Active Medications Diltiazem HCl (Cardizem Cd -) 360 mg PO DAILY [facility] Last Admin: 09/03/18 10:47 Dose: 360 mg Ergocalciferol (Drisdol -) 50,000 unit PO Q7D@1000 [facility] Furosemide (Lasix -) 40 mg PO DAILY [facility] Last Admin: 09/03/18 10:48 Dose: 40 mg Hydrochlorothiazide (Hctz -) 25 mg PO DAILY [facility] Last Admin: 09/03/18 10:47 Dose: 25 mg Lidocaine (Lidoderm Patch -) 1 patch TP DAILY [facility] Last Admin: 09/03/18 10:48 Dose: 1 patch Lisinopril (Prinivil) 20 mg PO DAILY [facility] Last Admin: 09/03/18 10:47 Dose: 20 mg Meclizine HCl (Antivert -) 25 mg PO DAILY PRN PRN Reason: VERTIGO Miscellaneous (Lidoderm Patch Removal) 1 each MC DAILY@2200 [facility] Last Admin: 09/03/18 21:13 Dose: Not Given Pramipexole Dihydrochloride (Mirapex -) 0.125 mg PO TID [facility] Last Admin: 09/04/18 06:27 Dose: 0.125 mg Topiramate (Topamax -) 25 mg PO BID [facility] Last Admin: 09/03/18 21:55 Dose: 25 mg Warfarin Sodium (Coumadin -) 4 mg PO DAILY@1800 [facility] Last Admin: 09/03/18 17:48 Dose: 4 mg - Objective Vital Signs: Vital Signs Temperature 98 F 09/04/18 05:39 Pulse Rate 83 09/04/18 05:39 Respiratory Rate 18 09/04/18 05:39 Blood Pressure 128/76 09/04/18 05:39 O2 Sat by Pulse Oximetry (%) 99 09/03/18 20:49 Constitutional: Yes: No Distress, Calm Eyes: Yes: Conjunctiva Clear HENT: Yes: Atraumatic Cardiovascular: Yes: Pulse Irregular Respiratory: Yes: Regular Gastrointestinal: Yes: Normal Bowel Sounds, Soft Musculoskeletal: Yes: Muscle Weakness Extremities: Yes: WNL Edema: No Neurological: Yes: Alert, Oriented Psychiatric: Yes: Alert, Oriented Labs: CBC, BMP 09/04/18 05:54 09/04/18 05:54 INR, PTT INR 2.44 (0.83-1.09) H 09/04/18 05:54 Problem List - Problems (1) Atrial fibrillation with rapid ventricular response Assessment/Plan: -Coumadin -monitor INR daily -INR goal 2-3 -cardiology on board -tele monitoring -INR 2.44 Code(s): I48.91 - UNSPECIFIED ATRIAL FIBRILLATION (2) Chronic headaches Assessment/Plan: -Head CT scan shows no acute pathology -neurology on board -Sumatriptan and Topamax Code(s): R51 - HEADACHE (3) Bilateral lower extremity edema Assessment/Plan: -Cardiology on board -Furosemide -Vascular US neg for DVT Code(s): R60.0 - LOCALIZED EDEMA (4) Chest pain Assessment/Plan: -tele monitoring -cardiology on board -trop neg x 1 Code(s): R07.9 - CHEST PAIN, UNSPECIFIED (5) Hypertension Assessment/Plan: -HCTZ and Lisinopril -low Na diet Code(s): I10 - ESSENTIAL (PRIMARY) HYPERTENSION Qualifiers: (6) Shoulder pain, right Assessment/Plan: -Lidoderm patch Code(s): M25.511 - PAIN IN RIGHT SHOULDER Assessment/Plan see problem list dvt ppx d/c home in AM
[2018-09-04] MEDS: WARFARIN NA 2 MG TABLET (UD) PO SCH (17:11)
[2018-09-04] MEDS: LIDOCAINE PATCH REMOVAL MC SCH (22:00)
[2018-09-05] MEDS: PRAMIPEXOLE DIHYDROCHLORIDE 0.125 MG TABLET PO SCH (06:30)
[2018-09-05 07:08] LABS: HEMOGLOBIN 14.6 GM/dL (10.7-15.3); MCH 29.5 pg (25.7-33.7); MCHC 32.4 g/dl (32.0-36.0); MEAN CELL VOLUME 91.1 fl (80-96); MEAN PLT VOLUME 11.9 fl (7.5-11.1); PLATELET COUNT 262 K/MM3 (134-434); RBC 4.94 M/mm3 (3.60-5.2); RDW 14.3 % (11.6-15.6); WHITE BLOOD COUNT 4.6 K/mm3 (4.0-10.0)
[2018-09-05 07:18] LABS: INR 2.44 (0.83-1.09); PROTHROMBIN TIME (PATIENT) 29.1 SEC (9.7-13.0)
[2018-09-05 07:58] LABS: ALBUMIN 4.1 g/dl (3.4-5.0); BILIRUBIN,TOTAL 0.5 mg/dL (0.2-1); BLOOD UREA NITROGEN 18.6 mg/dL (7-18); CALCIUM 9.2 mg/dL (8.5-10.1); CREATININE 0.9 mg/dL (0.55-1.3); TOT PROT 7.8 g/dl (6.4-8.2)
[2018-09-05] MEDS: FUROSEMIDE 40 MG TABLET (FP) PO SCH (09:48)
[2018-09-05] MEDS: TOPIRAMATE 25 MG TABLET (FP) PO SCH (09:48)
[2018-09-05] MEDS: LIDOCAINE 5% TOPICAL PATCH TP SCH (09:48)
[2018-09-05] MEDS: HYDROCHLOROTHIAZIDE 25 MG TABLET (FP) PO SCH (09:48)
[2018-09-05] MEDS: LISINOPRIL 20 MG TABLET (FP) PO SCH (09:48)
[2018-09-05 09:58] VITALS: BP 133/76; PULSE 90; TEMP 97.7
--- NOTE | 2018-09-05 11:57 | PN ---
Progress Note, Physician Chief Complaint: Uncontrolled afib BLLE edema History of Present Illness: NAD sitting at the edge of the bed self ambulatory c/o intermittent right knee pain- chronic Lower ext edema resolved daughter at bedside - Current Medication List Current Medications: Active Medications Diltiazem HCl (Cardizem Cd -) 360 mg PO DAILY [facility] Last Admin: 09/05/18 09:48 Dose: 360 mg Ergocalciferol (Drisdol -) 50,000 unit PO Q7D@1000 [facility] Furosemide (Lasix -) 40 mg PO DAILY [facility] Last Admin: 09/05/18 09:48 Dose: 40 mg Hydrochlorothiazide (Hctz -) 25 mg PO DAILY [facility] Last Admin: 09/05/18 09:48 Dose: 25 mg Lidocaine (Lidoderm Patch -) 1 patch TP DAILY [facility] Last Admin: 09/05/18 09:48 Dose: 1 patch Lisinopril (Prinivil) 20 mg PO DAILY [facility] Last Admin: 09/05/18 09:48 Dose: 20 mg Meclizine HCl (Antivert -) 25 mg PO DAILY PRN PRN Reason: VERTIGO Miscellaneous (Lidoderm Patch Removal) 1 each MC DAILY@2200 [facility] Last Admin: 09/04/18 22:00 Dose: 1 each Pramipexole Dihydrochloride (Mirapex -) 0.125 mg PO TID [facility] Last Admin: 09/05/18 06:30 Dose: 0.125 mg Rosuvastatin Calcium (Crestor -) 5 mg PO HS [facility] Topiramate (Topamax -) 25 mg PO BID [facility] Last Admin: 09/05/18 09:48 Dose: 25 mg Warfarin Sodium (Coumadin -) 4 mg PO DAILY@1800 [facility] Last Admin: 09/04/18 17:11 Dose: 4 mg - Objective Vital Signs: Vital Signs Temperature 97.7 F 09/05/18 09:57 Pulse Rate 90 09/05/18 09:57 Respiratory Rate 19 09/05/18 09:57 Blood Pressure 133/76 09/05/18 09:57 O2 Sat by Pulse Oximetry (%) 99 09/05/18 09:00 Constitutional: Yes: Well Nourished, No Distress, Calm Cardiovascular: Yes: Regular Rate and Rhythm Respiratory: Yes: Regular Gastrointestinal: Yes: WNL Musculoskeletal: Yes: Joint Stiffness (right knee) Extremities: Yes: WNL Edema: No Peripheral Pulses WNL: Yes Neurological: Yes: Alert, Oriented Psychiatric: Yes: Alert, Oriented Labs: CBC, BMP 09/05/18 05:43 09/05/18 05:43 INR, PTT INR 2.44 (0.83-1.09) H 09/05/18 05:40 Problem List - Problems (1) Hyperlipidemia Assessment/Plan: -Rosuvastatin at 5 mg po hs Code(s): E78.5 - HYPERLIPIDEMIA, UNSPECIFIED Assessment/Plan (1) Atrial fibrillation with rapid ventricular response Assessment/Plan: -Coumadin 5 mg alternating with 4 -monitor INR daily -INR goal 2-3 -cardiology on board -tele monitoring Code(s): I48.91 - UNSPECIFIED ATRIAL FIBRILLATION (2) Chronic headaches Assessment/Plan: -Head CT scan shows no acute pathology -neurology on board -Sumatriptan and Topamax Code(s): R51 - HEADACHE (3) Bilateral lower extremity edema Assessment/Plan: -Cardiology on board -Furosemide 40 mgm po daily -Vascular US neg for DVT Code(s): R60.0 - LOCALIZED EDEMA (4) Chest pain Assessment/Plan: -tele monitoring -cardiology on board -trop neg x 1 Code(s): R07.9 - CHEST PAIN, UNSPECIFIED (5) Hypertension Assessment/Plan: -HCTZ and Lisinopril -low Na diet Code(s): I10 - ESSENTIAL (PRIMARY) HYPERTENSION Qualifiers: (6) Shoulder pain, right Assessment/Plan: -Lidoderm patch Code(s): M25.511 - PAIN IN RIGHT SHOULDER
--- NOTE | 2018-09-05 13:45 | DS ---
Physical Examination Vital Signs: Vital Signs Temperature 97.7 F 09/05/18 09:57 Pulse Rate 90 09/05/18 09:57 Respiratory Rate 19 09/05/18 09:57 Blood Pressure 133/76 09/05/18 09:57 O2 Sat by Pulse Oximetry (%) 99 09/05/18 09:00 Findings/Remarks: Patient is a 73 y/o female with past medical history of HTN, HLD, Vertigo, Afib on Coumadin. Patient was in PMD office when they noticed she had elevated HR 120s accompanied with R sided chest pain and bilateral shoulder pain. Patient states she has also been experiencing SOB with exertion for the past week. She says she can walk no more than 1/2 block before she feels SOB. She has also been experiencing lower extremity edema. Constitutional: Yes: Well Nourished, No Distress, Calm Cardiovascular: Yes: Pulse Irregular Respiratory: Yes: Regular Gastrointestinal: Yes: Normal Bowel Sounds, Soft Renal/: Yes: WNL Musculoskeletal: Yes: Joint Stiffness (right knee, right shoulder) Extremities: Yes: WNL Edema: No Peripheral Pulses WNL: Yes Neurological: Yes: Alert, Oriented Psychiatric: Yes: Alert, Oriented Labs: CBC, BMP 09/05/18 05:43 09/05/18 05:43 Discharge Summary Reason For Visit: AFIB Current Active Problems Atrial fibrillation with rapid ventricular response (Acute) Bilateral lower extremity edema (Acute) Chronic headaches (Acute) Hyperlipidemia (Acute) Hospital Course: Laboratory Last Values WBC 4.6 K/mm3 (4.0-10.0) 09/05/18 05:43 RBC 4.94 M/mm3 (3.60-5.2) 09/05/18 05:43 Hgb 14.6 GM/dL (10.7-15.3) 09/05/18 05:43 Hct 45.0 % (32.4-45.2) 09/05/18 05:43 MCV 91.1 fl (80-96) 09/05/18 05:43 MCH 29.5 pg (25.7-33.7) 09/05/18 05:43 MCHC 32.4 g/dl (32.0-36.0) 09/05/18 05:43 RDW 14.3 % (11.6-15.6) 09/05/18 05:43 Plt Count 262 K/MM3 (134-434) D 09/05/18 05:43 MPV 11.9 fl (7.5-11.1) H 09/05/18 05:43 Absolute Neuts (auto) 1.8 K/mm3 (1.5-8.0) 09/03/18 06:16 Neutrophils % 52.9 % (42.8-82.8) 09/03/18 06:16 Lymphocytes % 35.9 % (8-40) 09/03/18 06:16 Monocytes % 8.1 % (3.8-10.2) 09/03/18 06:16 Eosinophils % 2.2 % (0-4.5) 09/03/18 06:16 Basophils % 0.9 % (0-2.0) 09/03/18 06:16 Nucleated RBC % 0 % (0-0) 09/03/18 06:16 Platelet Estimate Adequate 09/02/18 12:50 Platelet Comment No clumping noted 09/02/18 12:50 PT with INR 29.10 SEC (9.7-13.0) H 09/05/18 05:40 INR 2.44 (0.83-1.09) H 09/05/18 05:40 PTT (Actin FS) 38.7 SECONDS (25.2-36.5) H 09/02/18 12:50 Sodium 139 mmol/L (136-145) 09/05/18 05:43 Potassium 4.0 mmol/L (3.5-5.1) 09/05/18 05:43 Chloride 102 mmol/L (98-107) 09/05/18 05:43 Carbon Dioxide 29 mmol/L (21-32) 09/05/18 05:43 Anion Gap 8 MMOL/L (8-16) 09/05/18 05:43 BUN 18.6 mg/dL (7-18) H 09/05/18 05:43 Creatinine 0.9 mg/dL (0.55-1.3) 09/05/18 05:43 Est GFR (CKD-EPI)AfAm 74.56 09/05/18 05:43 Est GFR (CKD-EPI)NonAf 64.33 09/05/18 05:43 POC Glucometer 93 UNITS (80-120) 09/05/18 11:33 Random Glucose 96 mg/dL (74-106) 09/05/18 05:43 Hemoglobin A1c % 5.9 % (4.2-6.3) 09/03/18 06:16 Calcium 9.2 mg/dL (8.5-10.1) 09/05/18 05:43 Phosphorus 3.8 mg/dL (2.5-4.9) 09/03/18 06:16 Magnesium 2.3 mg/dL (1.8-2.4) 09/03/18 06:16 Iron 42 ug/dL (27-139) 09/03/18 06:16 TIBC 298 ug/dL (250-450) 09/03/18 06:16 Iron Saturation 14 % (15-55) L 09/03/18 06:16 Unsaturated IBC 256 ug/dL (118-369) 09/03/18 06:16 Total Bilirubin 0.5 mg/dL (0.2-1) 09/05/18 05:43 AST 12 U/L (15-37) L 09/05/18 05:43 ALT 36 U/L (13-61) 09/05/18 05:43 Alkaline Phosphatase 100 U/L (45-117) 09/05/18 05:43 Creatine Kinase 99 U/L (26-192) 09/02/18 12:50 Troponin I < 0.02 ng/ml (0.00-0.05) 09/03/18 06:16 B-Natriuretic Peptide 1562.1 pg/ml (5-125) H 09/03/18 06:16 Total Protein 7.8 g/dl (6.4-8.2) 09/05/18 05:43 Albumin 4.1 g/dl (3.4-5.0) 09/05/18 05:43 Triglycerides 76 mg/dL (0-150) 09/03/18 06:16 Cholesterol 185 mg/dL (50-200) 09/03/18 06:16 Total LDL Cholesterol 115 mg/dL (5-100) H 09/03/18 06:16 HDL Cholesterol 56 mg/dL (40-60) 09/03/18 06:16 TSH 2.40 uIU/ml (0.358-3.74) 09/03/18 06:16 Blood Type O POSITIVE 09/02/18 12:50 Antibody Screen Negative 09/02/18 12:50 Vital Signs Temp 97.7 F 09/05/18 09:57 Pulse 90 09/05/18 09:57 Resp 19 09/05/18 09:57 BP 133/76 09/05/18 09:57 Pulse Ox 99 09/05/18 09:00 Intake & Output 09/04/18 09/05/18 09/05/18 23:59 11:59 23:59 Intake Total 410 410 Balance 410 410 Weight 99.45 kg Intake: IV 10 10 SALINE LOCK 10 10 Oral 400 400 Other: Voiding Method Toilet Toilet # Unmeasured Voids Void 2 2 Bowel Movement No No Weight Measurement Method Standing Scale Condition: Stable - Instructions Referrals: Gerry Soto MD [Staff Physician] - Georges Olson MD [Staff Physician] - Yogesh Butt MD [Staff Physician] - Disposition: VNS/HOME HEALTH CARE - Home Medications Comprehensive Discharge Medication List: Ambulatory Orders Meclizine HCl [Antivert -] 25 mg PO DAILY PRN #0 tablet MDD 3 11/18/16 Acetaminophen [Mapap] 500 mg PO PRN 11/18/17 Diltiazem Cd [Cardizem Cd -] 360 mg PO DAILY 09/02/18 Ergocalciferol [Vitamin D2] 50,000 unit PO Q7D@1000 09/02/18 Lisinopril/Hydrochlorothiazide [Lisinopril-Hctz 20-25 mg Tab] 1 each PO DAILY Warfarin Na [Coumadin -] 4 mg PO DAILY 09/02/18 Warfarin Na [Coumadin -] 5 mg PO DAILY 09/02/18 Furosemide [Lasix -] 40 mg PO DAILY #30 tablet 09/05/18 Pramipexole Dihydrochloride [Mirapex -] 0.125 mg PO TID #90 tablet 09/05/18 Rosuvastatin [Crestor -] 5 mg PO HS #30 tablet 09/05/18 Topiramate [Topamax -] 25 mg PO BID #60 tablet 09/05/18
[2018-09-05] MEDS ORDERED: ROSUVASTATIN CA 5 MG TABLET (FP) PO SCH (22:00)
[2018-09-09] MEDS ORDERED: ERGOCALCIFEROL (VIT D2) 50,000 UNIT (1.25 MG) CAPSULE PO SCH (10:00)
== END 2018-09-05 14:07 | disposition home health service (06) | DRG 310 ==
LOC: JER 11:03 → JERBED 12:15 → J4W 17:55 → JERBED 17:59 → J4W 18:24
PROVIDERS: ADMIT Family Medicine; ATTEND Family Medicine
DX: I48.91 Unspecified atrial fibrillation (principal); M06.9 Rheumatoid arthritis, unspecified; I10 Essential (primary) hypertension; E78.5 Hyperlipidemia, unspecified; Z79.01 Long term (current) use of anticoagulants; E66.9 Obesity, unspecified; G25.81 Restless legs syndrome; G43.909 Migraine, unspecified, not intractable, without status migrainosus; R07.9 Chest pain, unspecified; M25.511 Pain in right shoulder; R60.0 Localized edema; Z68.34 Body mass index [BMI] 34.0-34.9, adult
CPT/HCPCS: 36415; 70450-TC; 71045-TC-FY; 71275-TC; 80053; 80061; 82550; 82962; 83036; 83540; 83550; 83721; 83735; 83880; 84100; 84436; 84443; 84484; 85025; 85027; 85610; 85730; 86850; 86900; 86901; 93005; 93010; 93970-TC; 99284-25; J0131

== ENCOUNTER 2018-09-13 13:07 | Inpatient (IN) | payer OTHER ==
--- NOTE | 2018-09-13 13:45 | PDOC ---
History of Present Illness - General Chief Complaint: Syncope/Near Syncope Stated Complaint: NEAR SYNCOPE Time Seen by Provider: 09/13/18 13:44 History Source: Patient Exam Limitations: No Limitations - History of Present Illness Initial Comments: 09/13/18 14:24 73yo F with PMH of newly diagnosed Afib (Coumadin), HTN, HLD, Edema, Vertigo BIBA for syncopal episode witnessed by daughter. Pt was outside a laundromat sitting wiht daughter, vision went black. Daughter states that patient had eyes open and head fell back, daughter caught her. Out for 2 minutes, foaming at the mouth. No urinary or bowel incontinence, no tongue biting, no jerking. Pt woke up. Denies cp, sob, abdominal pain, n/v/d. PMD: [place] PMH: see hpi PSH: knee surgery Meds: see med rec Allergies: nkda Past History - Past Medical History Allergies/Adverse Reactions: Allergies Allergy/AdvReac Type Severity Reaction Status Date / Time No Known Drug Allergies Allergy Verified 09/02/18 11:24 Home Medications: Ambulatory Orders Meclizine HCl [Antivert -] 25 mg PO DAILY PRN #0 tablet MDD 3 11/18/16 Acetaminophen [Mapap] 500 mg PO PRN 11/18/17 Diltiazem Cd [Cardizem Cd -] 360 mg PO DAILY 09/02/18 Ergocalciferol [Vitamin D2] 50,000 unit PO Q7D@1000 09/02/18 Lisinopril/Hydrochlorothiazide [Lisinopril-Hctz 20-25 mg Tab] 1 each PO DAILY Warfarin Na [Coumadin -] 4 mg PO DAILY 09/02/18 Warfarin Na [Coumadin -] 5 mg PO DAILY 09/02/18 Furosemide [Lasix -] 40 mg PO DAILY #30 tablet 09/05/18 Pramipexole Dihydrochloride [Mirapex -] 0.125 mg PO TID #90 tablet 09/05/18 Rosuvastatin [Crestor -] 5 mg PO HS #30 tablet 09/05/18 Topiramate [Topamax -] 25 mg PO BID #60 tablet 09/05/18 Anemia: No ( CHILD) Asthma: No Cancer: No Cardiac Disorders: No CVA: No COPD: No CHF: No Dementia: No Diabetes: No GI Disorders: No (CONSTIPATION) Disorders: No HTN: Yes Hypercholesterolemia: Yes Liver Disease: No Seizures: No Thyroid Disease: No - Surgical History Abdominal Surgery: No Appendectomy: No Cardiac Surgery: No Cholecystectomy: No Lung Surgery: No Neurologic Surgery: No Orthopedic Surgery: Yes (R TKR 1999/DEBRIDMENT 2016/L TKR 2004) - Immunization History Immunization Up to Date: Yes - Suicide/Smoking/Psychosocial Hx Smoking History: Never smoked Have you smoked in the past 12 months: No Information on smoking cessation initiated: No Hx Alcohol Use: No Drug/Substance Use Hx: No Substance Use Type: None Hx Substance Use Treatment: No Cardiac Specific PMH - Complaint Specific PMHX Pacemaker: No Review of Systems - Review of Systems Constitutional: No: Symptoms Reported HEENTM: No: Symptoms Reported Respiratory: Yes: Cough (dry cough). No: Symptoms reported, Orthopnea, Shortness of Breath Cardiac (ROS): Yes: Syncope. No: Chest Pain, Edema, Lightheadedness, Palpitations ABD/GI: No: Constipated, Diarrhea, Nausea, Vomiting, Abdominal cramping : No: Symptoms Reported Musculoskeletal: No: Symptoms Reported Integumentary: No: Symptoms Reported Neurological: No: Headache, Numbness, Seizure, Tingling, Weakness, Ataxia *Physical Exam - Vital Signs Last Vital Signs Temp Pulse Resp BP Pulse Ox 98.7 F 89 16 116/60 98 09/13/18 17:21 09/13/18 17:21 09/13/18 17:21 09/13/18 17:21 09/13/18 17:21 - Physical Exam General Appearance: Yes: Nourished, Appropriately Dressed. No: Apparent Distress HEENT: positive: EOMI, LETICIA, Pharynx Normal Neck: positive: Trachea midline, Supple. negative: Carotid bruit, Lymphadenopathy (R), Lymphadenopathy (L) Respiratory/Chest: positive: Lungs Clear, Normal Breath Sounds. negative: Crackles, Rhonchi, Wheezing Cardiovascular: positive: Irregularly Irregular. negative: Edema, JVD, Murmur Vascular Pulses: Dorsalis-Pedis (R): 2+, Doralis-Pedis (L): 2+ Gastrointestinal/Abdominal: positive: Normal Bowel Sounds, Soft. negative: Tender Musculoskeletal: negative: CVA Tenderness Extremity: positive: Normal Capillary Refill. negative: Pedal Edema, Swelling, Calf Tenderness Integumentary: positive: Normal Color, Dry, Warm Neurologic: positive: night assistant II-XII NML intact, Fully Oriented, Alert, Normal Mood/ Affect, Normal Response, Motor Strength 5/5, Finger to Nose, Other (normal HINTS exam). negative: Facial Droop, Confused, Disoriented ED Treatment Course - LABORATORY CBC & Chemistry Diagram: 09/13/18 14:07 09/13/18 14:07 - ADDITIONAL ORDERS Additional order review: Laboratory Results 09/13/18 09/13/18 09/13/18 14:07 14:07 14:07 PT with INR 38.20 H INR 3.20 H Sodium 141 Potassium 3.9 Chloride 106 Carbon Dioxide 30 Anion Gap 5 L BUN 36.8 H Creatinine 1.4 H Est GFR (CKD-EPI)AfAm 43.70 Est GFR (CKD-EPI)NonAf 37.71 Random Glucose 98 Calcium 9.0 Magnesium 2.3 Total Bilirubin 0.5 AST 16 ALT 18 Alkaline Phosphatase 85 Troponin I < 0.02 Total Protein 7.2 Albumin 3.9 09/13/18 14:07 RBC 4.92 MCV 90.5 MCHC 32.5 RDW 14.1 MPV 11.3 H Neutrophils % 60.9 Lymphocytes % 28.6 D Monocytes % 8.5 Eosinophils % 0.8 Basophils % 1.2 - RADIOLOGY Radiology Studies Ordered: Category Date Time Status HEAD CT WITHOUT CONTRAST [CT] Stat CT Scan 09/13/18 14:22 Completed CHEST X-RAY PORTABLE* [RAD] Stat Radiology 09/13/18 14:22 Completed - Medications Given in the ED: ED Medications Discontinued Medications Generic Name Dose Route Start Last Admin Trade Name Freq PRN Reason Stop Dose Admin Sodium Chloride 1,000 mls @ 1,000 mls/hr 09/13/18 14:54 09/13/18 14:57 Normal Saline - IV 09/13/18 15:53 1,000 mls/hr ASDIR STA Administration Medical Decision Making - Medical Decision Making 09/13/18 19:55 73yo F with PMH of newly diagnosed Afib (Coumadin), HTN, HLD, Edema, Vertigo BIBA for syncopal episode witnessed by daughter. Pt was outside a laundromat sitting wiht daughter, vision went black. Daughter states that patient had eyes open and head fell back, daughter caught her. Out for 2 minutes, foaming at the mouth. No urinary or bowel incontinence, no tongue biting, no jerking. Pt woke up. Denies cp, sob, abdominal pain, n/v/d. Vitals: HR 98, normotensive, afebrile PE: benign, no neurological deficits, no dizziness, negative HINTS Ddx includes but not limited to arrhythmia, vasovagal, cva/tia, electrolyte/ metabolic abnormality, mass/malignancy, pe, acs new onset afib, on ac, could be arrhythmia v. embolic strokes -ekg: afib, regular rate -trop, cbc, cmp, inr -ct head, cxr cxr normal, labs significant for Cr 1.4 (0.8 last month), inr 3.2 -will order urine lytes CT head negative for bleed. chronic changes. Does not require vitamin k at this time. Will admit for tele/obs syncope and shahram. Gettin another L of fluids (1L given by EMS). *DC/Admit/Observation/Transfer Diagnosis at time of Disposition: Acute kidney injury Afib Qualifiers: Atrial fibrillation type: unspecified Qualified Code(s): I48.91 - Unspecified atrial fibrillation Syncope Qualifiers: Syncope type: unspecified Qualified Code(s): R55 - Syncope and collapse - Discharge Dispostion Condition at time of disposition: Good Decision to Admit order Date/Time: Decision to Admit Order Category Date Time Status Decision to Admit to Hospital Routine Admission 09/13/18 14:24 Active - Referrals - Patient Instructions - Post Discharge Activity
[2018-09-13 14:25] LABS: BASO % 1.2 % (0-2.0); EOS % 0.8 % (0-4.5); HEMATOCRIT 44.5 % (32.4-45.2); HEMOGLOBIN 14.5 GM/dL (10.7-15.3); LYMPH % 28.6 % (8-40); MCH 29.5 pg (25.7-33.7); MCHC 32.5 g/dl (32.0-36.0); MEAN CELL VOLUME 90.5 fl (80-96); MEAN PLT VOLUME 11.3 fl (7.5-11.1); MONO % 8.5 % (3.8-10.2); NEUT % 60.9 % (42.8-82.8); PLATELET COUNT 255 K/MM3 (134-434); RBC 4.92 M/mm3 (3.60-5.2); RDW 14.1 % (11.6-15.6); WHITE BLOOD COUNT 4.7 K/mm3 (4.0-10.0)
[2018-09-13 14:33] LABS: INR 3.2 (0.83-1.09); PROTHROMBIN TIME (PATIENT) 38.2 SEC (9.7-13.0)
[2018-09-13 14:53] LABS: ALBUMIN 3.9 g/dl (3.4-5.0); BILIRUBIN,TOTAL 0.5 mg/dL (0.2-1); BLOOD UREA NITROGEN 36.8 mg/dL (7-18); CREATININE 1.4 mg/dL (0.55-1.3); MAGNESIUM 2.3 mg/dL (1.8-2.4); POTASSIUM 3.9 mmol/L (3.5-5.1); TOT PROT 7.2 g/dl (6.4-8.2)
[2018-09-13] MEDS ORDERED: SODIUM CHLORIDE 1,000 ML IV STA (14:54)
--- NOTE | 2018-09-13 15:38 | PDOC ---
Documentation entered by Allegra Calabrese SCRIBE, acting as scribe for Zulema Mattson MD. Zulema Mattson MD: This documentation has been prepared by the Bharati gage Adrianna, SCRIBE, under my direction and personally reviewed by me in its entirety. I confirm that the documentation accurately reflects all work, treatment, procedures, and medical decision making performed by me. Attending Attestation - Resident Resident Name: Sarah Deng - ED Attending Attestation I have performed the following: I have examined & evaluated the patient, The case was reviewed & discussed with the resident, I agree w/resident's findings & plan - HPI HPI: 73 y/o female, with past medical history of Afib with RVR (on Coumadin), HTN, HLD, and bilateral shoulder OA, BIBA who presents s/p syncopal episodes. Patient notes she was sitting outside the laundromat, when she began experiencing sudden onset room-spinning dizziness and her vision went black. Patients daughter, who held her during the episode, notes she became unresponsive for approximately 2 minutes, with mild foaming at the mouth and eyes rolling back. no head trauma, fell back and caught by family member. Patient denies any chest pain or SOB prior to the episode. She endorses a dry cough while in the ED. +general weakness and back pain; no focal changes, paresthesias Allergies: NKA, NKDA Past Medical History: Afib with RVR (on Coumadin), HTN, HLD, and bilateral shoulder OA Social history: Lives with family. No tobacco, ETOH or drug use. Surgical history: Bilateral shoulder arthroscopy, bilateral TKR Meds: as documented in EMR PMD: Dr. Butt 09/13/18 14:24 09/13/18 15:34 - Physicial Exam PE: Agree with the resident's HPI and PE as documented in the electronic medical record. NAD, well appearing, EOMI, PERRL, MMM, nl conjunctiva, anicteric; neck supple. lungs clear, RRR, abdomen soft nontender. Back nontender. GARCIA x4, no focal neuro deficits. No peripheral edema. normal color for ethnicity, WWP. Alert, oriented to person time and place. No carotid bruit, CN II-XII grossly intact. Strength prox and distally 5/5 throughout. Sensation grossly intact to light touch. GARCIA x4. No cerebellar signs, no dysmetria. Speech clear. 09/13/18 14:18 09/13/18 15:34 - Medical Decision Making 09/13/18 15:35 See HPI for details. Prior notes reviewed, including admissions, discharges and consultations. Vital signs reviewed, wnl. DDX seizure, syncope, cardiogenic vs neurogenic syncope, CVA, dissection, ACS, arrhythmia laboratory results and imaging reviewed, basic labs and lytes wnl, INR therapeutic on Coumadin, 2-3 - reassuring CXR_no acute pathology Cardiac panel_neg EKG Atrial fibrillation at 90 bpm, no interval abnormalities, narrow QRS, ST and T wave segments and morphology normal. Nonspecific T wave abnormalities left axis deviation, partial RBBB CT negative for acute intracranial pathology, age-related cerebral atrophy with chronic micro angiopathic changes and white matter encephalomalacia otherwise unremarkable. ED course: no events - needs admit tele for syncope, sz/neurogenic vs cardiogenic cause given Afib/ embolic cause, advanced imaging. Admit to Dr Butt service. 09/13/18 15:38 09/13/18 16:24 Heart Score/ECG Review #1 ECG reviewed & interpreted by me at: 13:35 General ECG Interpretation: Normal Rate, Normal Intervals Compared to previous ECG there are: No significant change 09/13/18 15:38 EKG Atrial fibrillation at 90 bpm, no interval abnormalities, narrow QRS, ST and T wave segments and morphology normal. Nonspecific T wave abnormalities left axis deviation, partial RBBB ED Treatment Course - LABORATORY CBC & Chemistry Diagram: 09/13/18 14:07 09/13/18 14:07 - ADDITIONAL ORDERS Additional order review: Laboratory Results 09/13/18 09/13/18 09/13/18 14:07 14:07 14:07 PT with INR 38.20 H INR 3.20 H Sodium 141 Potassium 3.9 Chloride 106 Carbon Dioxide 30 Anion Gap 5 L BUN 36.8 H Creatinine 1.4 H Est GFR (CKD-EPI)AfAm 43.70 Est GFR (CKD-EPI)NonAf 37.71 Random Glucose 98 Calcium 9.0 Magnesium 2.3 Total Bilirubin 0.5 AST 16 ALT 18 Alkaline Phosphatase 85 Troponin I < 0.02 Total Protein 7.2 Albumin 3.9 09/13/18 14:07 RBC 4.92 MCV 90.5 MCHC 32.5 RDW 14.1 MPV 11.3 H Neutrophils % 60.9 Lymphocytes % 28.6 D Monocytes % 8.5 Eosinophils % 0.8 Basophils % 1.2 - RADIOLOGY Radiology Studies Ordered: EXAM#: TYPE/EXAM: RESULT: [id number] RAD/CHEST X-RAY PORTABLE* : Shortness of breath. Syncopal episode. Single AP view of the chest has been submitted. Since , there is no significant change. There are clear lungs, prominent mediastinum and degenerative changes. There is a sclerotic knob. An acute process is not seen. Reported By: Uriel Osborn MD 09/13/18 14:42
--- NOTE | 2018-09-13 15:47 | EKG ---
Test Reason : Blood Pressure : / mmHG Vent. Rate : 090 BPM Atrial Rate : 087 BPM P-R Int : 000 ms QRS Dur : 108 ms QT Int : 380 ms P-R-T Axes : 000 -38 049 degrees QTc Int : 464 ms ATRIAL FIBRILLATION LEFT AXIS DEVIATION INCOMPLETE RIGHT BUNDLE BRANCH BLOCK ABNORMAL ECG WHEN COMPARED WITH ECG OF 02-SEP-2018 10:59, NO SIGNIFICANT CHANGE WAS FOUND Confirmed by MD GAGE, TIFFANY ([id number]) on 09/13/2018 3:47:04 PM Referred By: Confirmed By:TIFFANY ALMONTE MD
[2018-09-13] MEDS ORDERED: MECLIZINE HCL 25 MG TABLET (FP) PO PRN (17:13)
[2018-09-13] MEDS ORDERED: ACETAMINOPHEN 500 MG TABLET (FP) PO PRN (17:15)
[2018-09-13 17:46] LABS: EPI CELLS 5.8 /HPF (0-5/HPF); HYALINE CASTS 2 /lpf (0-8); URINE APPEARANCE CLEAR; URINE BACTERIA 51.6 /hpf (NEGATIVE); URINE BILIRUBIN NEGATIVE (NEGATIVE); URINE COLOR YELLOW; URINE GLUCOSE (UA) NEGATIVE (NEGATIVE); URINE KETONE TRACE (NEGATIVE); URINE LEUK ESTERASE 2+ (NEGATIVE); URINE NITRITE NEGATIVE (NEGATIVE); URINE PROTEIN NEGATIVE (NEGATIVE); URINE RBC 1 /hpf (0-4); URINE WBC 15 /hpf (0-5)
[2018-09-13] MEDS ORDERED: WARFARIN NA 2 MG TABLET (UD) PO SCH (18:00)
--- NOTE | 2018-09-13 18:47 | HP ---
Admitting History and Physical - Primary Care Physician PCP: Yogesh Butt - Admission Chief Complaint: Syncope History of Present Illness: Patient is a 73 y/o female with past medical history of Afib with RVR, HTN, HLD , bilateral shoulder OA. Patient presented to ER after having witnessed syncopal episode today. Patient was sitting outside when she stated to granddaughter that she couldn't see and experienced syncopal episode with LOC, did not hit her head. Granddaughter states she noticed foaming at the patient mouth. Patient states prior to syncope she felt right sided chest pain with dizziness. 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: Yes: CVA, Vertigo Cardiovascular: Yes: CHF, HTN, Hyperlipdemia, Other (atrial fibrillation ) Gastrointestinal: Yes: Constipation Renal/: Yes: Renal Inusuff Musculoskeletal: Yes: Osteoarthritis, Other (DISCOGENIC DISEASE) - Smoking History Smoking history: Never smoked Have you smoked in the past 12 months: No - Alcohol/Substance Use Hx Alcohol Use: No - Social History Usual Living Arrangement: Yes: Other (granddaughter) ADL: Independent History of Recent Travel: No Home Medications - Allergies Allergies/Adverse Reactions: Allergies Allergy/AdvReac Type Severity Reaction Status Date / Time No Known Drug Allergies Allergy Verified 09/02/18 11:24 - Home Medications Home Medications: Ambulatory Orders Meclizine HCl [Antivert -] 25 mg PO DAILY PRN #0 tablet MDD 3 11/18/16 Acetaminophen [Mapap] 500 mg PO PRN 11/18/17 Diltiazem Cd [Cardizem Cd -] 360 mg PO DAILY 09/02/18 Ergocalciferol [Vitamin D2] 50,000 unit PO Q7D@1000 09/02/18 Lisinopril/Hydrochlorothiazide [Lisinopril-Hctz 20-25 mg Tab] 1 each PO DAILY Warfarin Na [Coumadin -] 4 mg PO DAILY 09/02/18 Warfarin Na [Coumadin -] 5 mg PO DAILY 09/02/18 Furosemide [Lasix -] 40 mg PO DAILY #30 tablet 09/05/18 Pramipexole Dihydrochloride [Mirapex -] 0.125 mg PO TID #90 tablet 09/05/18 Rosuvastatin [Crestor -] 5 mg PO HS #30 tablet 09/05/18 Topiramate [Topamax -] 25 mg PO BID #60 tablet 09/05/18 Review of Systems - Review of Systems Constitutional: reports: Weakness Eyes: reports: No Symptoms HENT: reports: No Symptoms Neck: reports: No Symptoms Cardiovascular: reports: Chest Pain Respiratory: reports: Other (pleuritic pain) Gastrointestinal: reports: No Symptoms Genitourinary: reports: No Symptoms Breasts: reports: No Symptoms Reported Musculoskeletal: reports: No Symptoms Integumentary: reports: No Symptoms Neurological: reports: Dizziness, Unsteady Gait, Weakness Endocrine: reports: No Symptoms Hematology/Lymphatic: reports: No Symptoms Psychiatric: reports: No Symptoms Physical Examination Vital Signs: Vital Signs Temperature 98.7 F 09/13/18 17:21 Pulse Rate 89 09/13/18 17:21 Respiratory Rate 16 09/13/18 17:21 Blood Pressure 116/60 09/13/18 17:21 O2 Sat by Pulse Oximetry (%) 98 09/13/18 17:21 Constitutional: Yes: No Distress, Calm Eyes: Yes: Conjunctiva Clear HENT: Yes: Atraumatic Neck: Yes: Supple Cardiovascular: Yes: Regular Rate and Rhythm Respiratory: Yes: Regular, CTA Bilaterally Gastrointestinal: Yes: Normal Bowel Sounds, Soft Musculoskeletal: Yes: Muscle Weakness Extremities: Yes: WNL Edema: No Neurological: Yes: Alert, Oriented Psychiatric: Yes: Alert, Oriented Labs: CBC, BMP 09/13/18 14:07 09/13/18 14:07 Imaging - Results Chest X-ray: Report Reviewed EKG: Report Reviewed Problem List - Problems (1) Syncope Assessment/Plan: -Cardiology and Neurology consult -fall precautions -carotid US -Head CT scan shows no CT evidence of acute intracranial pathology Code(s): R55 - SYNCOPE AND COLLAPSE (2) CKD (chronic kidney disease) Assessment/Plan: -BUN/Cr 36.8/1.4 -renal consult -monitor renal function Code(s): N18.9 - CHRONIC KIDNEY DISEASE, UNSPECIFIED Qualifiers: Chronic kidney disease stage: stage 2 (mild) Qualified Code(s): N18.2 - Chronic kidney disease, stage 2 (mild) (3) Chest pain Assessment/Plan: -Cardiology consult -trop neg -tele monitoring Code(s): R07.9 - CHEST PAIN, UNSPECIFIED (4) Hyperlipidemia Assessment/Plan: -Crestor Code(s): E78.5 - HYPERLIPIDEMIA, UNSPECIFIED (5) Hypertension Assessment/Plan: -Lisinopril, HCTZ, Cardizem -low Na diet Code(s): I10 - ESSENTIAL (PRIMARY) HYPERTENSION Qualifiers: (6) Afib Assessment/Plan: -Eliquis Code(s): I48.91 - UNSPECIFIED ATRIAL FIBRILLATION Assessment/Plan see problem list dvt ppx
[2018-09-13] MEDS ORDERED: TOPIRAMATE 25 MG TABLET (FP) ONE (22:45)
[2018-09-13] MEDS: TOPIRAMATE 25 MG TABLET (FP) PO SCH (23:34)
[2018-09-13] MEDS: PRAMIPEXOLE DIHYDROCHLORIDE 0.125 MG TABLET PO SCH (23:34)
[2018-09-13] MEDS: ROSUVASTATIN CA 5 MG TABLET (FP) PO SCH (23:34)
[2018-09-14 01:18] VITALS: BMI 34.0
[2018-09-14] MEDS: PRAMIPEXOLE DIHYDROCHLORIDE 0.125 MG TABLET PO SCH (06:04)
[2018-09-14] MEDS ORDERED: PT OWN MED DRAWER 7, Y5N ONE ×2 (06:24→09:42)
[2018-09-14 07:49] LABS: BASO % 0.8 % (0-2.0); EOS % 1.3 % (0-4.5); HEMATOCRIT 45.3 % (32.4-45.2); HEMOGLOBIN 14.6 GM/dL (10.7-15.3); LYMPH % 50.3 % (8-40); MCH 29.2 pg (25.7-33.7); MCHC 32.3 g/dl (32.0-36.0); MEAN CELL VOLUME 90.4 fl (80-96); MEAN PLT VOLUME 11.7 fl (7.5-11.1); MONO % 6.8 % (3.8-10.2); NEUT % 40.8 % (42.8-82.8); PLATELET COUNT 286 K/MM3 (134-434); RBC 5.01 M/mm3 (3.60-5.2); WHITE BLOOD COUNT 4.6 K/mm3 (4.0-10.0)
[2018-09-14 07:59] LABS: INR 2.97 (0.83-1.09); PROTHROMBIN TIME (PATIENT) 35.4 SEC (9.7-13.0)
[2018-09-14 08:32] LABS: ALBUMIN 3.8 g/dl (3.4-5.0); ALK PHOS 89 U/L (45-117); ANION GAP 7 MMOL/L (8-16); BILIRUBIN,TOTAL 0.4 mg/dL (0.2-1); BLOOD UREA NITROGEN 30.8 mg/dL (7-18); CALCIUM 8.9 mg/dL (8.5-10.1); CHLORIDE 101 mmol/L (98-107); CHOLESTEROL 158 mg/dL (50-200); CO2 30 mmol/L (21-32); GLUCOSE,RANDOM 103 mg/dL (74-106); HDL CHOLESTEROL 48 mg/dL (40-60); MAGNESIUM 2.5 mg/dL (1.8-2.4); POTASSIUM 3.9 mmol/L (3.5-5.1); SGOT/AST 11 U/L (15-37); SGPT/ALT 20 U/L (13-61); SODIUM 138 mmol/L (136-145); TOT PROT 7.4 g/dl (6.4-8.2); TRIGLYCERIDES 74 mg/dL (0-150)
[2018-09-14] MEDS ORDERED: LISINOPRIL 20 MG TABLET (FP) PO SCH (10:00)
[2018-09-14] MEDS ORDERED: HYDROCHLOROTHIAZIDE 25 MG TABLET (FP) PO SCH (10:00)
[2018-09-14] MEDS ORDERED: FUROSEMIDE 40 MG TABLET (FP) PO SCH (10:00)
--- NOTE | 2018-09-14 10:34 | PN ---
Progress Note, Physician Chief Complaint: Syncope History of Present Illness: NAD feels better Seen by Nephrology - Current Medication List Current Medications: Active Medications Acetaminophen (Tylenol -) 500 mg PO Q6H PRN PRN Reason: PAIN OR FEVER Diltiazem HCl (Cardizem Cd -) 360 mg PO DAILY [facility] Last Admin: 09/14/18 10:28 Dose: 360 mg Ergocalciferol (Drisdol -) 50,000 unit PO Q7D@1000 [facility] Furosemide (Lasix -) 40 mg PO DAILY [facility] Hydrochlorothiazide (Hctz -) 25 mg PO DAILY [facility] Lisinopril (Prinivil) 20 mg PO DAILY [facility] Last Admin: 09/14/18 10:28 Dose: 20 mg Pramipexole Dihydrochloride (Mirapex -) 0.25 mg PO BID [facility] Rosuvastatin Calcium (Crestor -) 5 mg PO HS [facility] Last Admin: 09/13/18 23:34 Dose: 5 mg Topiramate (Topamax -) 50 mg PO BID [facility] Warfarin Sodium (Coumadin -) 4 mg PO Q2D@1800 [facility] Last Admin: 09/13/18 18:36 Dose: 4 mg Warfarin Sodium (Coumadin -) 5 mg PO Q2D@1800 [facility] - Objective Vital Signs: Vital Signs Temperature 98 F 09/14/18 09:00 Pulse Rate 98 H 09/14/18 10:26 Respiratory Rate 18 09/14/18 10:26 Blood Pressure 124/68 09/14/18 10:26 O2 Sat by Pulse Oximetry (%) 97 09/14/18 05:00 Constitutional: Yes: Well Nourished, No Distress, Calm, Obese Cardiovascular: Yes: Regular Rate and Rhythm Respiratory: Yes: Regular Gastrointestinal: Yes: WNL Genitourinary: Yes: WNL Musculoskeletal: Yes: WNL Extremities: Yes: WNL Edema: No Peripheral Pulses WNL: Yes Neurological: Yes: Alert, Oriented Psychiatric: Yes: Alert, Oriented Labs: CBC, BMP 09/14/18 06:34 09/14/18 06:34 INR, PTT INR 2.97 (0.83-1.09) H 09/14/18 06:34 Assessment/Plan (1) Syncope Assessment/Plan: -Cardiology and Neurology consult -fall precautions -carotid US reviewed -Head CT scan shows no CT evidence of acute intracranial pathology Code(s): R55 - SYNCOPE AND COLLAPSE (2) CKD (chronic kidney disease) Assessment/Plan: -renal consult -monitor renal function -Hold furosemide -ok to give HCTZ Code(s): N18.9 - CHRONIC KIDNEY DISEASE, UNSPECIFIED Qualifiers: Chronic kidney disease stage: stage 2 (mild) Qualified Code(s): N18.2 - Chronic kidney disease, stage 2 (mild) (3) Chest pain Assessment/Plan: -Cardiology consult -trop neg -tele monitoring Code(s): R07.9 - CHEST PAIN, UNSPECIFIED (4) Hyperlipidemia Assessment/Plan: -Crestor Code(s): E78.5 - HYPERLIPIDEMIA, UNSPECIFIED (5) Hypertension Assessment/Plan: -Lisinopril, HCTZ, Cardizem -low Na diet Code(s): I10 - ESSENTIAL (PRIMARY) HYPERTENSION Qualifiers: (6) Afib Assessment/Plan: -Eliquis Code(s): I48.91 - UNSPECIFIED ATRIAL FIBRILLATION
--- NOTE | 2018-09-14 10:35 | CONSULT ---
Consult - text type - Consultation Consultation Note: NEUROLOGY CONSULT GREATLY APPRECIATED: Events reviewed and discussed with staff. Pt examined with Daughter and Granddaughter at bedside aiding in history. This 73 yo RH woman with HTN, HLD, Afib, Migraines, Restless Limbs on coumadin, meclizine, diltiazem, lisinopril/HCTZ. Last seen in consult, here, on 09/02/18 for evaluation of migraine headaches and restless limbs (RLS). Started on Topiramate 25 BID, pramipexole 0.125 TID. Returns today after Syncopal episode while seated in laundromat. [place] diffuse sweating and "vision going dim" and felt like she was going to "pass out." Daughter describes Pt. sitting in chair with eyes open and slow to respond to strangers for approximately 2 minutes. Daughter was present and had to "catch" her from falling out of chair. She notes this self-resolved within minutes and improved with addition of fluids provided from EMS. Pt recalls being in ambulance. She does not recall if she had a headache that day. No tongue bitting or urinary incontinence. Pt relates marked improvement in Chronic leg pains on Pramipexole 0.125 TID without side effects or dizziness x 2-[address] (reviewed): Chronic ischemic changes in subcortical and periventricular region. (c/w migraine) Carotid duplex: Mild plaques in B/L common carotids. Mod plaques at bifurcations B/L. No significant hemodynamic changes. EKG- Atrial fibrillation, RVR (metoprolol started 25 mg BID) INR= 3.20 MEGHANA: 90-120/50-70. Cor irregular. No bruits. Neck supple. No evidence of head trauma. Neg SLR. Neg Sherrie's. S/P B/L TKR and B/L shoulder arthroscopy. NEURO: MS/Speech: Normal CNII-XII: Normal Motor: No drift or tremor. Normal strength, tone, bulk. Normal reflexes. Toes downgoing. Coordination: No FTN dystaxia. Sensory. Normal. Romberg - Gait: Stiff-legged upon raising from bed. Normal stride. Impression: Normal neurological exam Syncopal episode probably due to arrythmia/ hypotension. Pramipexole can contribute. Migraine Headaches Restless Limbs Syndrome (RLS)- markedly improved on Pramipexole Suggest: Orthostatic BP's Now on Metoprolol (which also has anti-migraine effects)- Would decrease lisinopril to 5 mg and taper and D/C Diltiazem to allow for increase of Pramipexole to 0.25 mg BID after meals Increase topiramate to 50 mg BID D/C meclizine as Pt's complaints of "dizziness" more likely represent her chronic gait unsteadiness and/or vertebrobasilar migraines. PT for gait training with Keith León. Neuro f/u as outpatient for EEG, EMG's of legs/arms Thank you very much, Gerry Soto MD
[2018-09-14] MEDS: TOPIRAMATE 25 MG TABLET (FP) PO SCH ×3 (11:09→21:58)
[2018-09-14] MEDS: PRAMIPEXOLE DIHYDROCHLORIDE 0.25 MG TABLET PO SCH ×2 (11:17→21:57)
--- NOTE | 2018-09-14 11:32 | CONSULT ---
Consult Consult Specialty:: Nephrology Reason for Consultation:: ALYSON - History of Present Illness Chief Complaint: syncope History of Present Illness: Pt is a 73 year old female with pmhx of a-fib on coumadin, htn, hld, lwoer ext edema and vertigo who presented to the ER with syncope. She was found to have elevated registered dietitian and I was called to evaluate her. Her registered dietitian improved overnight. She denies history of CKD or renal failure in the past. She follows with Dr Butt. She was foaming at the mouth when she passed out. She denies dysuria or hematuria. She is on hctz and lasix at home. She denies shortness of breath or lower ext edema. 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: Yes: CVA, Vertigo Cardio/Vascular: Yes: CHF, HTN, Hyperlipdemia, Other (atrial fibrillation ) Gastrointestinal: Yes: Constipation Renal/: Yes: Renal Inusuff Musculoskeletal: Yes: Osteoarthritis, Other (DISCOGENIC DISEASE) - Alcohol/Substance Use Hx Alcohol Use: No - Smoking History Smoking history: Never smoked Have you smoked in the past 12 months: No - Social History ADL: Independent History of Recent Travel: No Home Medications - Allergies Allergies/Adverse Reactions: Allergies Allergy/AdvReac Type Severity Reaction Status Date / Time No Known Drug Allergies Allergy Verified 09/02/18 11:24 - Home Medications Home Medications: Ambulatory Orders Meclizine HCl [Antivert -] 25 mg PO DAILY PRN #0 tablet MDD 3 11/18/16 Acetaminophen [Mapap] 500 mg PO PRN 11/18/17 Diltiazem Cd [Cardizem Cd -] 360 mg PO DAILY 09/02/18 Ergocalciferol [Vitamin D2] 50,000 unit PO Q7D@1000 09/02/18 Lisinopril/Hydrochlorothiazide [Lisinopril-Hctz 20-25 mg Tab] 1 each PO DAILY Warfarin Na [Coumadin -] 4 mg PO DAILY 09/02/18 Warfarin Na [Coumadin -] 5 mg PO DAILY 09/02/18 Furosemide [Lasix -] 40 mg PO DAILY #30 tablet 09/05/18 Pramipexole Dihydrochloride [Mirapex -] 0.125 mg PO TID #90 tablet 09/05/18 Rosuvastatin [Crestor -] 5 mg PO HS #30 tablet 09/05/18 Topiramate [Topamax -] 25 mg PO BID #60 tablet 09/05/18 Family Disease History - Family Disease History Family History: Denies Review of Systems - Review of Systems Constitutional: reports: Malaise Eyes: reports: No Symptoms HENT: reports: No Symptoms Neck: reports: No Symptoms Cardiovascular: reports: No Symptoms. denies: Edema Respiratory: reports: No Symptoms. denies: SOB, SOB on Exertion Gastrointestinal: reports: No Symptoms Genitourinary: reports: No Symptoms Musculoskeletal: reports: No Symptoms Integumentary: reports: No Symptoms Neurological: reports: Syncope Endocrine: reports: No Symptoms Hematology/Lymphatic: reports: No Symptoms Psychiatric: reports: No Symptoms Physical Exam Vital Signs: Vital Signs Temperature 98 F 09/14/18 09:00 Pulse Rate 98 H 09/14/18 10:26 Respiratory Rate 18 09/14/18 10:26 Blood Pressure 124/68 09/14/18 10:26 O2 Sat by Pulse Oximetry (%) 97 09/14/18 05:00 Constitutional: Yes: Calm Eyes: Yes: Conjunctiva Clear HENT: Yes: Atraumatic Neck: Yes: Supple Cardiovascular: Yes: S1, S2 Respiratory: Yes: CTA Bilaterally Gastrointestinal: Yes: Soft, Abdomen, Obese Renal/: Yes: WNL Musculoskeletal: Yes: WNL Edema: No Neurological: Yes: Oriented Psychiatric: Yes: Oriented Labs: CBC, BMP 09/14/18 06:34 09/14/18 06:34 Imaging - Results Chest X-ray: Report Reviewed Problem List - Problems (1) Acute kidney injury Code(s): N17.9 - ACUTE KIDNEY FAILURE, UNSPECIFIED (2) Afib Code(s): I48.91 - UNSPECIFIED ATRIAL FIBRILLATION Qualifiers: Atrial fibrillation type: unspecified Qualified Code(s): I48.91 - Unspecified atrial fibrillation (3) Syncope Code(s): R55 - SYNCOPE AND COLLAPSE Qualifiers: Syncope type: unspecified Qualified Code(s): R55 - Syncope and collapse Assessment/Plan Current Medications Generic Name Dose Route Start Last Admin Trade Name Freq PRN Reason Stop Dose Admin Acetaminophen 500 mg 09/13/18 17:15 Tylenol - PO Q6H PRN PAIN OR FEVER Diltiazem HCl 360 mg 09/14/18 10:00 09/14/18 10:28 Cardizem Cd - PO 360 mg DAILY ARLEEN Administration Ergocalciferol 50,000 unit 09/20/18 10:00 Drisdol - PO Q7D@1000 ARLEEN Furosemide 40 mg 09/14/18 10:00 Lasix - PO DAILY ALREEN Hydrochlorothiazide 25 mg 09/14/18 10:00 Hctz - PO DAILY ARLEEN Lisinopril 20 mg 09/14/18 10:00 09/14/18 10:28 Prinivil PO 20 mg DAILY ARLEEN Administration Pramipexole Dihydrochloride 0.25 mg 09/14/18 22:00 09/14/18 11:17 Mirapex - PO 0.25 mg BID ARLEEN Administration Rosuvastatin Calcium 5 mg 09/13/18 22:00 09/13/18 23:34 Crestor - PO 5 mg HS ARLEEN Administration Topiramate 50 mg 09/14/18 10:22 09/14/18 11:17 Topamax - PO 50 mg BID ARLEEN Administration Warfarin Sodium 4 mg 09/13/18 18:00 09/13/18 18:36 Coumadin - PO 4 mg Q2D@1800 ARLEEN Administration Warfarin Sodium 5 mg 09/14/18 18:00 Coumadin - PO Q2D@1800 ARLEEN Impression 1. ALYSON resolved 2. a-fib 3. HLD 4. HTN Plan - check ua - registered dietitian is normal - hold lasix - ccb can contribute to lower ext edema if she had it in the past - discussed low sodium diet with pt and family - can cont hctz - repeat labs in am
--- NOTE | 2018-09-14 12:13 | PN ---
Progress Note (short form) - Note Progress Note: PULMONARY CONSULTATION DICTATED 09/14/18 IMP NEAR-SYNCOPE AFIB HTN HLD RUL NODULE RA ALYSON H/O MUSHTAQ NOT ON CPAP PLAN CARDIOLOGY F/U NEURO W/U PER NEUROLOGY F/U LOW DOSE CHEST CT 6 MONTHS MONITOR LYTES,RENAL FUNCTION SLEEP SCREEN DR ROBERTO Problem List - Problems (1) Acute kidney injury Code(s): N17.9 - ACUTE KIDNEY FAILURE, UNSPECIFIED (2) Afib Code(s): I48.91 - UNSPECIFIED ATRIAL FIBRILLATION Qualifiers: Atrial fibrillation type: unspecified Qualified Code(s): I48.91 - Unspecified atrial fibrillation (3) Syncope Code(s): R55 - SYNCOPE AND COLLAPSE Qualifiers: Syncope type: unspecified Qualified Code(s): R55 - Syncope and collapse (4) Hyperlipidemia Code(s): E78.5 - HYPERLIPIDEMIA, UNSPECIFIED (5) Hypertension Code(s): I10 - ESSENTIAL (PRIMARY) HYPERTENSION Qualifiers: (6) Shoulder pain, right Code(s): M25.511 - PAIN IN RIGHT SHOULDER (7) Sleep apnea Code(s): G47.30 - SLEEP APNEA, UNSPECIFIED
--- NOTE | 2018-09-14 13:18 | CONS ---
DATE OF CONSULTATION: 09/14/2018 PULMONARY CONSULTATION REFERRING PHYSICIAN: Yogesh Butt MD Patient is a 73-year-old black female with past medical history of atrial fibrillation, hypertension, hyperlipidemia, bilateral shoulder osteoarthritis, brie not on cpap bilateral knee replacements, rheumatoid arthritis, admitted to [facility] on September 13. Also, history of migraines and restless legs. Patient was admitted to [facility] on September 13 after presyncopal episode while sitting in a laundromat. Patient states that she was sitting in a laundromat and suddenly felt diffuse sweating and felt like her vision was going down. She felt like she was going to pass out but did not actually lose consciousness. She recalls sitting in a chair with her eyes open, slow to respond, and this ranges approximately 2 minutes. She also said she was foaming at the mouth. She denies any chest pain, nausea, vomiting. She denies any hemoptysis. She does not recall any headaches. There was no urinary incontinence or tongue biting noted. The patient underwent a CT of the head, which revealed chronic ischemic changes, cortical, and periventricular regions. Duplex revealed mild plaques bilateral common carotids, moderate plaques at the bifurcations bilaterally. The patient was admitted with the above. On admission, she was evaluated by Dr. Soto for neurology consultation. Note that the patient had normal neuro exam . He recommends orthostatic BPs and Cardiology followup. Patient is a nonsmoker. There is no history of occupational exposure to chemicals or fumes. She has an occasional cough for the past couple of weeks. Of note, she underwent a CT scan on her most recent admission on September 02 , which revealed no evidence of pulmonary emboli, which revealed small nodule in the right upper lobe which is new from previous exam in 2017. She was born in [place] and moved to the [facility] in [facility]. 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 PAST MEDICAL HISTORY: Again includes atrial fibrillation with rapid ventricular response, hypertension, hyperlipidemia, bilateral shoulder osteoarthritis, bilateral knee replacements, chronic kidney disease. CURRENT MEDICATIONS: Include Tylenol, Prinivil, Coumadin, Topamax, Cardizem, Mirapex, Crestor, hydrochlorothiazide, Trental. REVIEW OF SYSTEMS: No orthopnea. No PND. Currently, no chest pain and no palpitations. No shortness of breath. No fever. No abdominal pain. No lower extremity edema. PHYSICAL EXAMINATION: General: Patient is a well-developed, well-nourished female, awake, alert, in no acute distress. Vital Signs: She is afebrile, blood pressure is 124/68, respiratory rate is 18 , and O2 saturation is 97% on room air. HEENT: Head is normocephalic, atraumatic. Neck: Supple. Heart: Irregularly irregular, S1, S2. Chest: Clear. Abdomen: Soft. Bowel sounds positive. Extremities: No cyanosis. Edema. LABORATORIES: BUN was 36, creatinine 1.4. Magnesium 2.5. WBC 4.7, hemoglobin 14.6, hematocrit 45.3, platelet count 286,000. Chest x-ray no infiltrates and no effusions. CT scan, as noted earlier. Most recent echo in November 2017 revealed mild aortic sclerosis, normal right ventricular systolic pressure, and left ventricular systolic function low to normal. IMPRESSION: 1. Near syncope. 2. Atrial fibrillation. 3. Hypertension. 4. Hyperlipidemia. 5. Right upper lobe nodule. 6. Rheumatoid arthritis. 7 OSAS PLAN: Continue Cardiology followup. Continue neurologic workup as per Neurology. Obtain followup low dose chest CT in 6 months. Monitor electrolytes and renal function.sleep screen. FAHAD ROBERTO M.D. JUAN JOSE/[id number] MTDD
--- NOTE | 2018-09-14 13:56 | CON.CARD ---
Consult Consult Specialty:: Cardiology Referred by:: Dr. Butt Reason for Consultation:: Syncope - History of Present Illness Chief Complaint: Syncope. History of Present Illness: 73 year-old woman with a history of HTN, HLD, persistent atrial fibrillation on warfarin, and osteoarthritis admitted 09/13/18 with syncope. Patient notes she was sitting outside the laundromat, when she began experiencing sudden onset room-spinning dizziness and her vision went black. Patients daughter, who held her during the episode, notes she became unresponsive for approximately 2 minutes, with mild foaming at the mouth and eyes rolling back. no head trauma, fell back and caught by family member. Patient denies any chest pain or SOB prior to the episode. She endorses a dry cough while in the ED. +general weakness and back pain; no focal changes, paresthesias ECG 09/13/18 showed afib at 90 bpm, LAD and incomplete RBBB. No evidence of NV. CT head 09/13/18 was negative for CVA and bleeding. Her BP was relative low. Tele shows persistent atrial fibrillation with episodes of rapid VR, up to 150s BPM. Echo 11/19/17: Normal LV size with low normal LVEF. Mild MR and TR. 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 Cardio/Vascular: Yes: CHF, HTN, Hyperlipdemia, Other (atrial fibrillation ) Gastrointestinal: Yes: Constipation Renal/: Yes: Renal Inusuff Musculoskeletal: Yes: Osteoarthritis, Other (DISCOGENIC DISEASE) - Alcohol/Substance Use Hx Alcohol Use: No - Smoking History Smoking history: Never smoked Have you smoked in the past 12 months: No - Social History ADL: Independent History of Recent Travel: No Home Medications - Allergies Allergies/Adverse Reactions: Allergies Allergy/AdvReac Type Severity Reaction Status Date / Time No Known Drug Allergies Allergy Verified 09/02/18 11:24 - Home Medications Home Medications: Ambulatory Orders Meclizine HCl [Antivert -] 25 mg PO DAILY PRN #0 tablet MDD 3 11/18/16 Acetaminophen [Mapap] 500 mg PO PRN 11/18/17 Diltiazem Cd [Cardizem Cd -] 360 mg PO DAILY 09/02/18 Ergocalciferol [Vitamin D2] 50,000 unit PO Q7D@1000 09/02/18 Lisinopril/Hydrochlorothiazide [Lisinopril-Hctz 20-25 mg Tab] 1 each PO DAILY Warfarin Na [Coumadin -] 4 mg PO DAILY 09/02/18 Warfarin Na [Coumadin -] 5 mg PO DAILY 09/02/18 Furosemide [Lasix -] 40 mg PO DAILY #30 tablet 09/05/18 Pramipexole Dihydrochloride [Mirapex -] 0.125 mg PO TID #90 tablet 09/05/18 Rosuvastatin [Crestor -] 5 mg PO HS #30 tablet 09/05/18 Topiramate [Topamax -] 25 mg PO BID #60 tablet 09/05/18 Review of Systems - Review of Systems Constitutional: reports: Weakness Cardiovascular: reports: Palpitations, Other Neurological: reports: Change in LOC, Syncope Vital Signs: Vital Signs Temperature 98 F 09/14/18 09:00 Pulse Rate 98 H 09/14/18 10:26 Respiratory Rate 18 09/14/18 10:26 Blood Pressure 124/68 09/14/18 10:26 O2 Sat by Pulse Oximetry (%) 98 09/14/18 09:00 General: Well developed. Obese. No acute distress. Head: Normocephalic. Atraumatic, Eyes: PERRLA, EOMI. Sclerae anicteric. Conjunctivae clear. Neck: Supple. No JVD. No bruits. Heart: Normal S1, S2: Irregular rhythm and tachycardia. No murmur. No gallop or rub. Lungs: Symmetrical air entry. Clear to auscultation. No crackles. No wheezing or rhonchi. Abdomen: Soft. Bowel sound positive. Non tender. No masses. Extremities: No edema. No clubbing or cyanosis. PD 2+, equal bilaterally. Neuro: Intact, no focal findings. AAO X3. - Other Data Labs, Other Data: CBC, BMP 09/14/18 06:34 09/14/18 06:34 INR, PTT INR 2.97 (0.83-1.09) H 09/14/18 06:34 Troponin, BNP 09/13/18 09/14/18 14:07 06:34 Troponin I < 0.02 < 0.02 Troponin, BNP 09/13/18 09/14/18 14:07 06:34 Troponin I < 0.02 < 0.02 Assessment/Plan 73 year-old woman with a history of HTN, HLD, persistent atrial fibrillation on warfarin, and osteoarthritis admitted 09/13/18 with syncope. ECG 09/13/18 showed afib at 90 bpm, LAD and incomplete RBBB. No evidence of NV. CT head 09/13/18 was negative for CVA and bleeding. Her BP was relative low. Tele shows persistent atrial fibrillation with episodes of rapid VR, up to 150s BPM. 1) Syncope, likely due to hypotension, orthostatic hypotension precipitated by rapid afib and antihypertensive medications. Decrease Lisinopril to 10 mg daily. Discontinue HCTZ. Ventricular rate control as follows. 2) Persistent atrial fibrillation with rapid VR while on diltiazem 360 mg daily. Add metoprolol tartrate 25 mg BID. Continue diltiazem 360 mg daily. Continue warfarin with target INR 2-3. We will follow the patient.
[2018-09-14 16:39] LABS: URINE APPEARANCE CLEAR; URINE BILIRUBIN NEGATIVE (NEGATIVE); URINE COLOR YELLOW; URINE GLUCOSE (UA) NEGATIVE (NEGATIVE); URINE KETONE NEGATIVE (NEGATIVE); URINE LEUK ESTERASE NEGATIVE (NEGATIVE); URINE NITRITE NEGATIVE (NEGATIVE); URINE PROTEIN NEGATIVE (NEGATIVE)
[2018-09-14] MEDS ORDERED: WARFARIN NA 5 MG TABLET (UD) PO SCH (18:00)
[2018-09-14] MEDS: ROSUVASTATIN CA 5 MG TABLET (FP) PO SCH (21:57)
[2018-09-14] MEDS: METOPROLOL TARTRATE 25 MG TABLET (FP) PO SCH (21:57)
[2018-09-15 08:32] LABS: ALBUMIN 3.8 g/dl (3.4-5.0); BILIRUBIN,TOTAL 0.2 mg/dL (0.2-1); BLOOD UREA NITROGEN 34.8 mg/dL (7-18); CALCIUM 8.7 mg/dL (8.5-10.1); CREATININE 1.1 mg/dL (0.55-1.3); TOT PROT 7.3 g/dl (6.4-8.2)
--- NOTE | 2018-09-15 08:53 | PN ---
Progress Note, Physician History of Present Illness: pulmonary alert,no distress,-cp,-sob. sleep screen AHI 24.6 - Current Medication List Current Medications: Active Medications Acetaminophen (Tylenol -) 500 mg PO Q6H PRN PRN Reason: PAIN OR FEVER Diltiazem HCl (Cardizem Cd -) 360 mg PO DAILY [facility] Last Admin: 09/14/18 10:28 Dose: 360 mg Ergocalciferol (Drisdol -) 50,000 unit PO Q7D@1000 [facility] Lisinopril (Prinivil) 10 mg PO DAILY [facility] Metoprolol Tartrate (Lopressor -) 25 mg PO BID [facility] Last Admin: 09/14/18 21:57 Dose: 25 mg Pramipexole Dihydrochloride (Mirapex -) 0.25 mg PO BID [facility] Last Admin: 09/14/18 21:57 Dose: 0.25 mg Rosuvastatin Calcium (Crestor -) 5 mg PO HS [facility] Last Admin: 09/14/18 21:57 Dose: 5 mg Topiramate (Topamax -) 50 mg PO BID [facility] Last Admin: 09/14/18 21:58 Dose: 50 mg Warfarin Sodium (Coumadin -) 4 mg PO Q2D@1800 [facility] Last Admin: 09/13/18 18:36 Dose: 4 mg Warfarin Sodium (Coumadin -) 5 mg PO Q2D@1800 [facility] Last Admin: 09/14/18 17:41 Dose: 5 mg - Objective Vital Signs: Vital Signs Temperature 97.9 F 09/15/18 05:00 Pulse Rate 71 09/15/18 05:00 Respiratory Rate 18 09/15/18 05:00 Blood Pressure 85/53 L 09/15/18 05:00 O2 Sat by Pulse Oximetry (%) 96 09/14/18 21:00 Constitutional: Yes: Well Nourished, Calm Eyes: Yes: WNL HENT: Yes: WNL Neck: Yes: WNL Cardiovascular: Yes: Pulse Irregular, S1, S2 Respiratory: Yes: CTA Bilaterally Gastrointestinal: Yes: Normal Bowel Sounds, Soft Extremities: Yes: WNL Edema: No Labs: CBC, BMP 09/14/18 06:34 09/15/18 06:55 INR, PTT INR 2.97 (0.83-1.09) H 09/14/18 06:34 Problem List - Problems (1) Acute kidney injury Code(s): N17.9 - ACUTE KIDNEY FAILURE, UNSPECIFIED (2) Afib Code(s): I48.91 - UNSPECIFIED ATRIAL FIBRILLATION Qualifiers: Atrial fibrillation type: unspecified Qualified Code(s): I48.91 - Unspecified atrial fibrillation (3) Syncope Code(s): R55 - SYNCOPE AND COLLAPSE Qualifiers: Syncope type: unspecified Qualified Code(s): R55 - Syncope and collapse (4) Hyperlipidemia Code(s): E78.5 - HYPERLIPIDEMIA, UNSPECIFIED (5) Hypertension Code(s): I10 - ESSENTIAL (PRIMARY) HYPERTENSION Qualifiers: (6) Shoulder pain, right Code(s): M25.511 - PAIN IN RIGHT SHOULDER (7) Sleep apnea Code(s): G47.30 - SLEEP APNEA, UNSPECIFIED Assessment/Plan IMP NEAR-SYNCOPE AFIB HTN HLD ORTHSTATIC HYPOTENSION RUL NODULE RA ALYSON H/O MUSHTAQ NOT ON CPAP AHI 24.6 C/W SEVERE OSAS PLAN RATE CONTROL F/U LOW DOSE CHEST CT 6 MONTHS MONITOR LYTES,RENAL FUNCTION FORMAL SLEEP STUDIES OUTPATIENT DR ROBERTO Problem List - Problems (1) Acute kidney injury Code(s): N17.9 - ACUTE KIDNEY FAILURE, UNSPECIFIED (2) Afib Code(s): I48.91 - UNSPECIFIED ATRIAL FIBRILLATION Qualifiers: Atrial fibrillation type: unspecified Qualified Code(s): I48.91 - Unspecified atrial fibrillation (3) Syncope Code(s): R55 - SYNCOPE AND COLLAPSE Qualifiers: Syncope type: unspecified Qualified Code(s): R55 - Syncope and collapse (4) Hyperlipidemia Code(s): E78.5 - HYPERLIPIDEMIA, UNSPECIFIED (5) Hypertension Code(s): I10 - ESSENTIAL (PRIMARY) HYPERTENSION Qualifiers: (6) Shoulder pain, right Code(s): M25.511 - PAIN IN RIGHT SHOULDER (7) Sleep apnea Code(s): G47.30 - SLEEP APNEA, UNSPECIFIED
--- NOTE | 2018-09-15 09:07 | PN ---
Progress Note, Physician History of Present Illness: Pt seen and examined at bedside. She is awake and alert. She denies shortness of breath or lower ext edema. - Current Medication List Current Medications: Active Medications Acetaminophen (Tylenol -) 500 mg PO Q6H PRN PRN Reason: PAIN OR FEVER Diltiazem HCl (Cardizem Cd -) 360 mg PO DAILY [facility] Last Admin: 09/14/18 10:28 Dose: 360 mg Ergocalciferol (Drisdol -) 50,000 unit PO Q7D@1000 [facility] Lisinopril (Prinivil) 10 mg PO DAILY [facility] Metoprolol Tartrate (Lopressor -) 25 mg PO BID [facility] Last Admin: 09/14/18 21:57 Dose: 25 mg Pramipexole Dihydrochloride (Mirapex -) 0.25 mg PO BID [facility] Last Admin: 09/14/18 21:57 Dose: 0.25 mg Rosuvastatin Calcium (Crestor -) 5 mg PO HS [facility] Last Admin: 09/14/18 21:57 Dose: 5 mg Topiramate (Topamax -) 50 mg PO BID [facility] Last Admin: 09/14/18 21:58 Dose: 50 mg Warfarin Sodium (Coumadin -) 4 mg PO Q2D@1800 [facility] Last Admin: 09/13/18 18:36 Dose: 4 mg Warfarin Sodium (Coumadin -) 5 mg PO Q2D@1800 [facility] Last Admin: 09/14/18 17:41 Dose: 5 mg - Objective Vital Signs: Vital Signs Temperature 97.9 F 09/15/18 05:00 Pulse Rate 71 09/15/18 05:00 Respiratory Rate 18 09/15/18 05:00 Blood Pressure 85/53 L 09/15/18 05:00 O2 Sat by Pulse Oximetry (%) 96 09/14/18 21:00 Constitutional: Yes: Calm Eyes: Yes: Conjunctiva Clear HENT: Yes: Atraumatic Neck: Yes: Supple Cardiovascular: Yes: S1, S2 Respiratory: Yes: CTA Bilaterally Gastrointestinal: Yes: Normal Bowel Sounds, Soft Musculoskeletal: Yes: WNL Edema: No Neurological: Yes: Oriented Psychiatric: Yes: Oriented Labs: CBC, BMP 09/14/18 06:34 09/15/18 06:55 INR, PTT INR 2.97 (0.83-1.09) H 09/14/18 06:34 Problem List - Problems (1) Acute kidney injury Code(s): N17.9 - ACUTE KIDNEY FAILURE, UNSPECIFIED (2) Afib Code(s): I48.91 - UNSPECIFIED ATRIAL FIBRILLATION Qualifiers: Atrial fibrillation type: unspecified Qualified Code(s): I48.91 - Unspecified atrial fibrillation (3) Syncope Code(s): R55 - SYNCOPE AND COLLAPSE Qualifiers: Syncope type: unspecified Qualified Code(s): R55 - Syncope and collapse Assessment/Plan Current Medications Generic Name Dose Route Start Last Admin Trade Name Freq PRN Reason Stop Dose Admin Acetaminophen 500 mg 09/13/18 17:15 Tylenol - PO Q6H PRN PAIN OR FEVER Diltiazem HCl 360 mg 09/14/18 10:00 09/14/18 10:28 Cardizem Cd - PO 360 mg DAILY ARLEEN Administration Ergocalciferol 50,000 unit 09/20/18 10:00 Drisdol - PO Q7D@1000 [facility] Lisinopril 10 mg 09/15/18 10:00 Prinivil PO DAILY [facility] Metoprolol Tartrate 25 mg 09/14/18 22:00 09/14/18 21:57 Lopressor - PO 25 mg BID ARLEEN Administration Pramipexole Dihydrochloride 0.25 mg 09/14/18 22:00 09/14/18 21:57 Mirapex - PO 0.25 mg BID ARLEEN Administration Rosuvastatin Calcium 5 mg 09/13/18 22:00 09/14/18 21:57 Crestor - PO 5 mg HS ARLEEN Administration Topiramate 50 mg 09/14/18 10:22 09/14/18 21:58 Topamax - PO 50 mg BID ARLEEN Administration Warfarin Sodium 4 mg 09/13/18 18:00 09/13/18 18:36 Coumadin - PO 4 mg Q2D@1800 ARLEEN Administration Warfarin Sodium 5 mg 09/14/18 18:00 09/14/18 17:41 Coumadin - PO 5 mg Q2D@1800 ARLEEN Administration Laboratory Tests 11/19/17 09/02/18 09/03/18 06:00 12:50 06:16 Creatinine 0.8 0.7 0.8 Urine Protein Urine Blood 09/04/18 09/05/18 09/13/18 05:54 05:43 14:07 Creatinine 0.8 0.9 1.4 H Urine Protein Urine Blood 09/14/18 09/14/18 06:34 16:00 Creatinine 1.0 Urine Protein Negative Urine Blood Negative Impression 1. ALYSON resolved 2. a-fib 3. HLD 4. HTN Plan - renal function stable - bp is low - hold diuretics - hold lisinopril - cardio follow up - monitor bp - recommend weight loss - ua neg for blood or protein
[2018-09-15] MEDS ORDERED: PT OWN MED DRAWER 7, Y5N ONE (09:08)
[2018-09-15] MEDS: PRAMIPEXOLE DIHYDROCHLORIDE 0.25 MG TABLET PO SCH (09:14)
[2018-09-15] MEDS: METOPROLOL TARTRATE 25 MG TABLET (FP) PO SCH (09:14)
[2018-09-15] MEDS: TOPIRAMATE 25 MG TABLET (FP) PO SCH (09:14)
--- NOTE | 2018-09-15 09:21 | PN ---
Progress Note, Physician Chief Complaint: Syncope History of Present Illness: NAD feels better Seen by Nephrology and cardiology lisinipril, furosemide, HCTZ discontinued due to low bp's Started on lopressor 25 mg po bid with continuation of diltiazem 360 mg po daily - Current Medication List Current Medications: Active Medications Acetaminophen (Tylenol -) 500 mg PO Q6H PRN PRN Reason: PAIN OR FEVER Diltiazem HCl (Cardizem Cd -) 360 mg PO DAILY [facility] Last Admin: 09/15/18 09:13 Dose: 360 mg Ergocalciferol (Drisdol -) 50,000 unit PO Q7D@1000 [facility] Metoprolol Tartrate (Lopressor -) 25 mg PO BID [facility] Last Admin: 09/15/18 09:14 Dose: 25 mg Pramipexole Dihydrochloride (Mirapex -) 0.25 mg PO BID [facility] Last Admin: 09/15/18 09:14 Dose: 0.25 mg Rosuvastatin Calcium (Crestor -) 5 mg PO HS [facility] Last Admin: 09/14/18 21:57 Dose: 5 mg Topiramate (Topamax -) 50 mg PO BID [facility] Last Admin: 09/15/18 09:14 Dose: 50 mg Warfarin Sodium (Coumadin -) 4 mg PO Q2D@1800 [facility] Last Admin: 09/13/18 18:36 Dose: 4 mg Warfarin Sodium (Coumadin -) 5 mg PO Q2D@1800 [facility] Last Admin: 09/14/18 17:41 Dose: 5 mg - Objective Vital Signs: Vital Signs Temperature 98 F 09/15/18 09:00 Pulse Rate 86 09/15/18 09:00 Respiratory Rate 18 09/15/18 09:00 Blood Pressure 106/76 09/15/18 09:00 O2 Sat by Pulse Oximetry (%) 96 09/14/18 21:00 Constitutional: Yes: Well Nourished, No Distress, Calm, Obese Cardiovascular: Yes: Regular Rate and Rhythm Respiratory: Yes: Regular Gastrointestinal: Yes: Normal Bowel Sounds, Soft, Abdomen, Obese Musculoskeletal: Yes: WNL Extremities: Yes: WNL Edema: No Peripheral Pulses WNL: Yes Neurological: Yes: Alert, Oriented Psychiatric: Yes: Alert, Oriented Labs: CBC, BMP 09/14/18 06:34 09/15/18 06:55 INR, PTT INR 2.97 (0.83-1.09) H 09/14/18 06:34 Assessment/Plan (1) Syncope Assessment/Plan: -Cardiology and Neurology consult -fall precautions -carotid US reviewed -Head CT scan shows no CT evidence of acute intracranial pathology Code(s): R55 - SYNCOPE AND COLLAPSE (2) CKD (chronic kidney disease) Assessment/Plan: -renal consult -monitor renal function -D/c furosemide, HCTZ and lisinopril Code(s): N18.9 - CHRONIC KIDNEY DISEASE, UNSPECIFIED Qualifiers: Chronic kidney disease stage: stage 2 (mild) Qualified Code(s): N18.2 - Chronic kidney disease, stage 2 (mild) (3) Chest pain Assessment/Plan: -Cardiology consult -trop neg -tele monitoring Code(s): R07.9 - CHEST PAIN, UNSPECIFIED (4) Hyperlipidemia Assessment/Plan: -Crestor Code(s): E78.5 - HYPERLIPIDEMIA, UNSPECIFIED (5) Hypertension Assessment/Plan: -Continue Cardizem -Started on lopressor -low Na diet Code(s): I10 - ESSENTIAL (PRIMARY) HYPERTENSION Qualifiers: (6) Afib Assessment/Plan: -Eliquis Code(s): I48.91 - UNSPECIFIED ATRIAL FIBRILLATION
[2018-09-15] MEDS ORDERED: LISINOPRIL 10 MG TABLET (FP) PO SCH (10:00)
--- NOTE | 2018-09-15 11:00 | DS ---
Physical Examination Vital Signs: Vital Signs Temperature 98 F 09/15/18 09:00 Pulse Rate 86 09/15/18 09:00 Respiratory Rate 18 09/15/18 09:00 Blood Pressure 106/76 09/15/18 09:00 O2 Sat by Pulse Oximetry (%) 96 09/14/18 21:00 Findings/Remarks: Patient is a 73 y/o female with past medical history of Afib with RVR, HTN, HLD , bilateral shoulder OA. Patient presented to ER after having witnessed syncopal episode today. Patient was sitting outside when she stated to granddaughter that she couldn't see and experienced syncopal episode with LOC, did not hit her head. Granddaughter states she noticed foaming at the patient mouth. Patient states prior to syncope she felt right sided chest pain with dizziness. Constitutional: Yes: Well Nourished, No Distress, Calm Cardiovascular: Yes: Regular Rate and Rhythm Respiratory: Yes: Regular Gastrointestinal: Yes: Normal Bowel Sounds, Soft, Abdomen, Obese Musculoskeletal: Yes: WNL Extremities: Yes: WNL Edema: No Peripheral Pulses WNL: Yes Neurological: Yes: Alert, Oriented Psychiatric: Yes: Alert, Oriented Labs: CBC, BMP 09/14/18 06:34 09/15/18 06:55 Discharge Summary Reason For Visit: ACUTE KIDNEY INJURY AFIB SYNCOPE Current Active Problems Acute kidney injury (Acute) Afib (Acute) Syncope (Acute) Hospital Course: Laboratory Last Values WBC 4.6 K/mm3 (4.0-10.0) 09/14/18 06:34 RBC 5.01 M/mm3 (3.60-5.2) 09/14/18 06:34 Hgb 14.6 GM/dL (10.7-15.3) 09/14/18 06:34 Hct 45.3 % (32.4-45.2) H 09/14/18 06:34 MCV 90.4 fl (80-96) 09/14/18 06:34 MCH 29.2 pg (25.7-33.7) 09/14/18 06:34 MCHC 32.3 g/dl (32.0-36.0) 09/14/18 06:34 RDW 14.0 % (11.6-15.6) 09/14/18 06:34 Plt Count 286 K/MM3 (134-434) 09/14/18 06:34 MPV 11.7 fl (7.5-11.1) H 09/14/18 06:34 Absolute Neuts (auto) 1.9 K/mm3 (1.5-8.0) 09/14/18 06:34 Neutrophils % 40.8 % (42.8-82.8) L D 09/14/18 06:34 Lymphocytes % 50.3 % (8-40) H D 09/14/18 06:34 Monocytes % 6.8 % (3.8-10.2) 09/14/18 06:34 Eosinophils % 1.3 % (0-4.5) 09/14/18 06:34 Basophils % 0.8 % (0-2.0) 09/14/18 06:34 Nucleated RBC % 0 % (0-0) 09/14/18 06:34 PT with INR 35.40 SEC (9.7-13.0) H 09/14/18 06:34 INR 2.97 (0.83-1.09) H 09/14/18 06:34 Sodium 139 mmol/L (136-145) 09/15/18 06:55 Potassium 4.0 mmol/L (3.5-5.1) 09/15/18 06:55 Chloride 105 mmol/L (98-107) 09/15/18 06:55 Carbon Dioxide 29 mmol/L (21-32) 09/15/18 06:55 Anion Gap 6 MMOL/L (8-16) L 09/15/18 06:55 BUN 34.8 mg/dL (7-18) H 09/15/18 06:55 Creatinine 1.1 mg/dL (0.55-1.3) 09/15/18 06:55 Est GFR (CKD-EPI)AfAm 58.50 09/15/18 06:55 Est GFR (CKD-EPI)NonAf 50.47 09/15/18 06:55 POC Glucometer 121 UNITS (80-120) 09/13/18 17:31 Random Glucose 112 mg/dL (74-106) H 09/15/18 06:55 Calcium 8.7 mg/dL (8.5-10.1) 09/15/18 06:55 Magnesium 2.5 mg/dL (1.8-2.4) H 09/14/18 06:34 Total Bilirubin 0.2 mg/dL (0.2-1) 09/15/18 06:55 AST 12 U/L (15-37) L 09/15/18 06:55 ALT 21 U/L (13-61) 09/15/18 06:55 Alkaline Phosphatase 90 U/L (45-117) 09/15/18 06:55 Creatine Kinase 58 U/L (26-192) 09/14/18 06:34 Troponin I < 0.02 ng/ml (0.00-0.05) 09/14/18 06:34 Total Protein 7.3 g/dl (6.4-8.2) 09/15/18 06:55 Albumin 3.8 g/dl (3.4-5.0) 09/15/18 06:55 Triglycerides 74 mg/dL (0-150) 09/14/18 06:34 Cholesterol 158 mg/dL (50-200) 09/14/18 06:34 Total LDL Cholesterol 98 mg/dL (5-100) 09/14/18 06:34 HDL Cholesterol 48 mg/dL (40-60) 09/14/18 06:34 TSH 2.68 uIU/ml (0.358-3.74) 09/14/18 06:34 Urine Color Yellow 09/14/18 16:00 Urine Appearance Clear 09/14/18 16:00 Urine pH 8.0 (5.0-8.0) 09/14/18 16:00 Ur Specific [place] 1.016 (1.010-1.035) 09/14/18 16:00 Urine Protein Negative (NEGATIVE) 09/14/18 16:00 Urine Glucose (UA) Negative (NEGATIVE) 09/14/18 16:00 Urine Ketones Negative (NEGATIVE) 09/14/18 16:00 Urine Blood Negative (NEGATIVE) 09/14/18 16:00 Urine Nitrite Negative (NEGATIVE) 09/14/18 16:00 Urine Bilirubin Negative (NEGATIVE) 09/14/18 16:00 Urine Urobilinogen 2.0 mg/dL (0.2-1.0) H 09/14/18 16:00 Ur Leukocyte Esterase Negative (NEGATIVE) 09/14/18 16:00 Urine WBC (Auto) 15 /hpf (0-5) 09/13/18 17:22 Urine RBC (Auto) 1 /hpf (0-4) 09/13/18 17:22 Urine Casts (Auto) 2 /lpf (0-8) 09/13/18 17:22 U Epithel Cells (Auto) 5.8 /HPF (0-5/HPF) 09/13/18 17:22 Urine Bacteria (Auto) 51.6 /hpf (NEGATIVE) 09/13/18 17:22 Urine Osmolality 568 mosm/kg (300-900) 09/13/18 17:22 Ur Random Creatinine 88.0 mg/dL (30-150) 09/13/18 17:22 Ur Random Sodium 114 MMOL/L (40-220) 09/13/18 17:22 Ur Random Potassium 41.0 MMOL/L (25-125) 09/13/18 17:22 Ur Random Chloride 133 MMOL/L (110-250) 09/13/18 17:22 Vital Signs Temp 98 F 09/15/18 09:00 Pulse 86 09/15/18 09:00 Resp 18 09/15/18 09:00 BP 106/76 09/15/18 09:00 Pulse Ox 96 09/14/18 21:00 Intake & Output 09/14/18 09/14/18 09/15/18 11:59 23:59 11:59 Intake Total 0 10 Balance 0 10 Weight 98.702 kg 98.974 kg Intake: IV 0 10 Normal Saline - 1,000 ml 0 @ 1000 mls/hr IV ASDIR STA Rx#:[id number] Saline Lock 10 Other: Voiding Method Toilet Toilet Toilet Bowel Movement No No Height 5 ft 7 in Body Mass Index (BMI) 34.0 Weight Measurement Method Standing Scale Standing Scale Condition: Stable - Instructions Diet, Activity, Other Instructions: Take warfarin 5 mg MW and 4 mg all other days Follow up with PCP within 2 weeks Follow up with Cardiology within [address] [facility] Referrals: Suhas Tobias MD [Staff Physician] - Disposition: VNS/HOME HEALTH CARE - Home Medications Comprehensive Discharge Medication List: Ambulatory Orders Meclizine HCl [Antivert -] 25 mg PO DAILY PRN #0 tablet MDD 3 11/18/16 Acetaminophen [Mapap] 500 mg PO PRN 11/18/17 Diltiazem Cd [Cardizem Cd -] 360 mg PO DAILY 09/02/18 Ergocalciferol [Vitamin D2] 50,000 unit PO Q7D@1000 09/02/18 Lisinopril/Hydrochlorothiazide [Lisinopril-Hctz 20-25 mg Tab] 1 each PO DAILY Warfarin Na [Coumadin -] 4 mg PO DAILY 09/02/18 Warfarin Na [Coumadin -] 5 mg PO DAILY 09/02/18 Furosemide [Lasix -] 40 mg PO DAILY #30 tablet 09/05/18 Pramipexole Dihydrochloride [Mirapex -] 0.125 mg PO TID #90 tablet 09/05/18 Rosuvastatin [Crestor -] 5 mg PO HS #30 tablet 09/05/18 Topiramate [Topamax -] 25 mg PO BID #60 tablet 09/05/18
[2018-09-15 11:49] LABS: INR 3.61 (0.83-1.09); PROTHROMBIN TIME (PATIENT) 43.1 SEC (9.7-13.0)
[2018-09-15 13:16] VITALS: BP 109/66; PULSE 80; TEMP 98.6
[2018-09-20] MEDS ORDERED: ERGOCALCIFEROL (VIT D2) 50,000 UNIT (1.25 MG) CAPSULE PO SCH (10:00)
== END 2018-09-15 14:42 | disposition home health service (06) | DRG 312 ==
LOC: JER 13:07 → JERBED 14:24 → J4W 09-14 00:42 → OBSVTOIN 09-15 09:18
PROVIDERS: ADMIT Family Medicine; ATTEND Family Medicine
DX: I95.2 Hypotension due to drugs (principal); N17.9 Acute kidney failure, unspecified; I48.1 Persistent atrial fibrillation; I13.0 Hypertensive heart and chronic kidney disease with heart failure and stage 1 through stage 4 chronic kidney disease, or unspecified chronic kidney disease; R42 Dizziness and giddiness; E78.5 Hyperlipidemia, unspecified; M19.012 Primary osteoarthritis, left shoulder; M19.011 Primary osteoarthritis, right shoulder; K59.00 Constipation, unspecified; I49.8 Other specified cardiac arrhythmias; I95.89 Other hypotension; G43.809 Other migraine, not intractable, without status migrainosus; G25.81 Restless legs syndrome; R07.9 Chest pain, unspecified; R26.81 Unsteadiness on feet; T42.8X5A Adverse effect of antiparkinsonism drugs and other central muscle-tone depressants, initial encounter; I12.9 Hypertensive chronic kidney disease with stage 1 through stage 4 chronic kidney disease, or unspecified chronic kidney disease; N18.2 Chronic kidney disease, stage 2 (mild); E66.8 Other obesity; Z68.34 Body mass index [BMI] 34.0-34.9, adult; R91.1 Solitary pulmonary nodule; M06.80 Other specified rheumatoid arthritis, unspecified site; G47.30 Sleep apnea, unspecified; I45.19 Other right bundle-branch block; Z86.73 Personal history of transient ischemic attack (TIA), and cerebral infarction without residual deficits
CPT/HCPCS: 36415; 70450-TC; 71045-TC-FY; 80053; 80061; 81003; 82436; 82550; 82565; 82962; 83721; 83735; 83935; 84133; 84300; 84443; 84484; 85025; 85610; 93005; 93010; 93880-TC; 99285-25; G0378; J7030

== ENCOUNTER 2021-06-24 12:48 | Inpatient (IN) | payer OTHER ==
[2021-06-24] MEDS ORDERED: SODIUM CHLORIDE 0.9% 500 ML INFUS.BAG IV ONE (13:41)
[2021-06-24] MEDS ORDERED: ACETAMINOPHEN 1000 MG/100 ML BAG IVPB ONE (13:41)
[2021-06-24] MEDS ORDERED: ACETAMINOPHEN INJECTION 100 ML IVPB ONE (14:03)
[2021-06-24 14:29] LABS: BASO % 1.3 % (0-2.0); EOS % 0.9 % (0-4.5); HEMATOCRIT 45.5 % (32.4-45.2); HEMOGLOBIN 15.1 GM/dL (10.7-15.3); LYMPH % 27.1 % (8-40); MCH 30.7 pg (25.7-33.7); MCHC 33.2 g/dl (32.0-36.0); MEAN CELL VOLUME 92.5 fl (80-96); MEAN PLT VOLUME 10.5 fl (7.5-11.1); MONO % 7.2 % (3.8-10.2); NEUT % 63.5 % (42.8-82.8); PLATELET COUNT 271 10^3/uL (134-434); RBC 4.92 M/mm3 (3.60-5.2); RDW 14.3 % (11.6-15.6); WHITE BLOOD COUNT 4.9 K/mm3 (4.0-10.0)
[2021-06-24 14:39] LABS: INR 1.87 (0.83-1.09); PROTHROMBIN TIME (PATIENT) 21.6 SEC (9.7-13.0)
[2021-06-24 14:41] LABS: ACTIVATED PTT 38.1 SECONDS (25.2-36.5)
[2021-06-24 14:42] LABS: EPI CELLS 14 /uL (0-25.1); HYALINE CASTS 1 /uL (0-3.1); PH,URINE 6.5 (5.0-8.0); URINE APPEARANCE CLEAR; URINE BACTERIA 10 /uL (0-1359); URINE BILIRUBIN NEGATIVE (NEGATIVE); URINE COLOR YELLOW; URINE GLUCOSE (UA) NEGATIVE (NEGATIVE); URINE KETONE NEGATIVE (NEGATIVE); URINE LEUK ESTERASE 1+ (NEGATIVE); URINE NITRITE NEGATIVE (NEGATIVE); URINE PROTEIN 1+ (NEGATIVE); URINE RBC 11 /uL (0-23.9); URINE WBC 40 /uL (0-25.8)
[2021-06-24 14:53] LABS: CALCIUM 9.4 mg/dL (8.5-10.1)
[2021-06-24 14:54] LABS: ALBUMIN 3.8 g/dl (3.4-5.0); BLOOD UREA NITROGEN 16.6 mg/dL (7-18)
[2021-06-24 14:58] LABS: BILIRUBIN,TOTAL 0.6 mg/dL (0.2-1); TOT PROT 7.4 g/dl (6.4-8.2)
[2021-06-24] MEDS ORDERED: ACETAMINOPHEN 325 MG TABLET (FP) PO PRN (16:36)
[2021-06-24] MEDS ORDERED: ACETAMINOPHEN 325 MG TABLET (FP) ONE (20:39)
[2021-06-24] MEDS: METOPROLOL TARTRATE 50 MG TABLET (FP) PO SCH (21:08)
[2021-06-24] MEDS ORDERED: APIXABAN 5 MG TABLET ONE (21:11)
[2021-06-24] MEDS: APIXABAN 5 MG TABLET PO SCH (21:14)
[2021-06-24] MEDS ORDERED: ROSUVASTATIN CA 5 MG TABLET PO SCH (22:00)
[2021-06-24 23:29] VITALS: BMI 33.5
[2021-06-25] MEDS ORDERED: BENZOCAINE/MENTH/CETYLPYRD CL 1 EACH LOZENGE MM PRN (02:03)
[2021-06-25] MEDS: APIXABAN 5 MG TABLET PO SCH (09:11)
[2021-06-25] MEDS: METOPROLOL TARTRATE 50 MG TABLET (FP) PO SCH (09:11)
[2021-06-25] MEDS ORDERED: SERTRALINE HCL 25 MG TABLET (FP) PO SCH (10:00)
[2021-06-25 10:28] LABS: HEMATOCRIT 44.4 % (32.4-45.2); HEMOGLOBIN 14.4 GM/dL (10.7-15.3); MCH 30.5 pg (25.7-33.7); MCHC 32.4 g/dl (32.0-36.0); MEAN CELL VOLUME 94.2 fl (80-96); MEAN PLT VOLUME 10.9 fl (7.5-11.1); PLATELET COUNT 268 10^3/uL (134-434); RBC 4.71 M/mm3 (3.60-5.2)
[2021-06-25 10:41] LABS: CALCIUM 8.9 mg/dL (8.5-10.1)
[2021-06-25 10:42] LABS: ALBUMIN 3.4 g/dl (3.4-5.0); BLOOD UREA NITROGEN 13.8 mg/dL (7-18)
[2021-06-25 10:44] LABS: CREATININE 0.9 mg/dL (0.55-1.3)
[2021-06-25 10:45] LABS: BILIRUBIN,TOTAL 0.5 mg/dL (0.2-1)
[2021-06-25 10:46] LABS: TOT PROT 6.8 g/dl (6.4-8.2)
[2021-06-25 14:44] LABS: ANISOCYTOSIS 0; MACROCYTOSIS 0; PLATELET ESTIMATE NORMAL
[2021-06-25 15:11] VITALS: BP 101/52; PULSE 65; TEMP 97.8
== END 2021-06-25 18:09 | disposition home or self-care (01) | DRG 69 ==
LOC: JER 12:48 → JERBED 15:11 → OBSVTOIN 16:33 → J4S 23:36
PROVIDERS: ADMIT Family Medicine; ATTEND Family Medicine
DX: G45.9 Transient cerebral ischemic attack, unspecified (principal); I50.32 Chronic diastolic (congestive) heart failure; I48.91 Unspecified atrial fibrillation; Z79.01 Long term (current) use of anticoagulants; J45.909 Unspecified asthma, uncomplicated; E78.5 Hyperlipidemia, unspecified; I11.0 Hypertensive heart disease with heart failure; Z86.73 Personal history of transient ischemic attack (TIA), and cerebral infarction without residual deficits; I45.10 Unspecified right bundle-branch block
CPT/HCPCS: 36415; 70450-TC; 70551-TC; 80053; 80061; 81003; 82962; 83036; 84443; 84484; 85025; 85027; 85610; 85730; 86850; 86900; 86901; 87086; 93005; 93010; 93306-TC; 97116-GP; 97161-GP; 99285-25; C9803-CS; G0378; U0003; U0005

== ENCOUNTER 2021-12-25 09:17 | Emergency (ER) | payer OTHER ==
[2021-12-25 09:28] VITALS: RESP 18; TEMP 98.1; BMI 35.6
[2021-12-25 11:48] LABS: BASO % 0.8 % (0-2.0); EOS % 1.5 % (0-4.5); HEMATOCRIT 44.8 % (32.4-45.2); HEMOGLOBIN 14.7 GM/dL (10.7-15.3); LYMPH % 22.5 % (8-40); MCH 30.2 pg (25.7-33.7); MCHC 32.8 g/dl (32.0-36.0); MEAN PLT VOLUME 10.7 fl (7.5-11.1); MONO % 6.9 % (3.8-10.2); NEUT % 68.3 % (42.8-82.8); PLATELET COUNT 309 10^3/uL (134-434); RBC 4.87 M/mm3 (3.60-5.2); RDW 14.2 % (11.6-15.6); WHITE BLOOD COUNT 5.8 K/mm3 (4.0-10.0)
[2021-12-25 12:06] LABS: CHLORIDE 104 mmol/L (98-107); SODIUM 141 mmol/L (136-145)
[2021-12-25 12:09] LABS: ALBUMIN 3.9 g/dl (3.4-5.0); CALCIUM 9.5 mg/dL (8.5-10.1)
[2021-12-25 12:11] LABS: BLOOD UREA NITROGEN 19.2 mg/dL (7-18)
[2021-12-25 12:13] LABS: ANION GAP 10 MMOL/L (8-16); CO2 27 mmol/L (21-32); CREATININE 1.2 mg/dL (0.55-1.3); GLUCOSE,RANDOM 95 mg/dL (74-106); SGOT/AST 17 U/L (15-37); SGPT/ALT 21 U/L (13-61)
[2021-12-25 12:15] LABS: ALK PHOS 103 U/L (45-117); BILIRUBIN,TOTAL 0.7 mg/dL (0.2-1); TOT PROT 7.7 g/dl (6.4-8.2)
[2021-12-25 13:10] VITALS: BP 116/69; PULSE 67
== END 2021-12-25 13:17 | disposition home or self-care (01) ==
LOC: JER 09:17
DX: R53.1 Weakness (principal)
CPT/HCPCS: 0241U-QW; 36415; 80053; 84484; 85025; 93005; 93010; 99284-25

== ENCOUNTER 2022-06-16 08:32 | Emergency (ER) | payer OTHER ==
[2022-06-16 08:44] VITALS: BP 119/78; PULSE 98; RESP 16; TEMP 98; BMI 34.2
[2022-06-16] MEDS ORDERED: CEPHALEXIN MONOHYDRATE 500 MG CAPSULE (UD) PO ONE (11:31)
[2022-06-16] MEDS ORDERED: SULFAMETHOXAZOLE/TRIMETHOPRIM 800MG/160MG D.S. TABLET PO ONE (11:31)
[2022-06-16] MEDS ORDERED: CEPHALEXIN MONOHYDRATE 500 MG CAPSULE (UD) ONE (11:35)
[2022-06-16] MEDS ORDERED: SULFAMETHOXAZOLE/TRIMETHOPRIM 800MG/160MG D.S. TABLET ONE (11:36)
== END 2022-06-16 11:46 | disposition home or self-care (01) ==
LOC: JER 08:32
PROC: 0H96XZZ Drainage of Back Skin, External Approach (ICD-10-PCS; principal; 2022-06-16)
DX: L02.212 Cutaneous abscess of back [any part, except buttock and flank] (principal); L72.3 Sebaceous cyst; M54.6 Pain in thoracic spine
CPT/HCPCS: 99283-25

== ENCOUNTER 2022-06-18 08:48 | Emergency (ER) | payer OTHER ==
[2022-06-18 08:57] VITALS: BP 127/73; PULSE 109; RESP 17; TEMP 98.5; BMI 329.8
== END 2022-06-18 10:51 | disposition home or self-care (01) ==
LOC: JER 08:48 → JERFT 08:48
DX: Z48.00 Encounter for change or removal of nonsurgical wound dressing (principal)
CPT/HCPCS: 99283-25

== ENCOUNTER 2022-08-03 16:46 | Observation (INO) | payer OTHER ==
[2022-08-03] MEDS ORDERED: LACTATED RINGERS SOLUTION 1000 ML INFUS.BAG IV ONE (17:55)
[2022-08-03] MEDS ORDERED: ACETAMINOPHEN 1000 MG/100 ML BAG IVPB ONE (17:55)
[2022-08-03] MEDS ORDERED: FAMOTIDINE 20 MG/50 ML IVPB 20 MG/50 ML MG IVPB ONE ×2 (17:55→18:02)
[2022-08-03] MEDS ORDERED: MAG HYDROX/AL HYDROX/SIMETH 30 ML UNIT-DOSE CUP PO ONE (17:55)
[2022-08-03] MEDS ORDERED: ACETAMINOPHEN INJECTION 100 ML IVPB ONE (18:01)
[2022-08-03] MEDS ORDERED: MAG HYDROX/AL HYDROX/SIMETH 30 ML UNIT-DOSE CUP ONE (18:02)
[2022-08-03 18:08] LABS: BASO % 0.8 % (0-2.0); EOS % 2.1 % (0-4.5); HEMATOCRIT 41.3 % (32.4-45.2); HEMOGLOBIN 13.3 GM/dL (10.7-15.3); LYMPH % 37.2 % (8-40); MCHC 32.2 g/dl (32.0-36.0); MEAN CELL VOLUME 89.9 fl (80-96); MONO % 15.5 % (3.8-10.2); NEUT % 44.4 % (42.8-82.8); PLATELET COUNT 287 10^3/uL (134-434); RBC 4.59 M/mm3 (3.60-5.2); RDW 15.1 % (11.6-15.6)
[2022-08-03 18:11] LABS: EPI CELLS 15 /uL (0-25.1); HYALINE CASTS 5 /uL (0-3.1); PH,URINE 5.5 (5.0-8.0); URINE APPEARANCE CLEAR; URINE BACTERIA 27 /uL (0-1359); URINE BILIRUBIN NEGATIVE (NEGATIVE); URINE COLOR DK YELLOW; URINE GLUCOSE (UA) NEGATIVE (NEGATIVE); URINE KETONE TRACE (NEGATIVE); URINE LEUK ESTERASE 1+ (NEGATIVE); URINE NITRITE NEGATIVE (NEGATIVE); URINE PROTEIN 1+ (NEGATIVE); URINE RBC 19 /uL (0-23.9); URINE WBC 26 /uL (0-25.8)
[2022-08-03 18:26] LABS: POTASSIUM 4.3 mmol/L (3.5-5.1)
[2022-08-03 18:28] LABS: ALBUMIN 3.8 g/dl (3.4-5.0); BLOOD UREA NITROGEN 11.3 mg/dL (7-18); CALCIUM 9.1 mg/dL (8.5-10.1)
[2022-08-03 18:29] LABS: MAGNESIUM 1.8 mg/dL (1.8-2.4)
[2022-08-03 18:32] LABS: CREATININE 0.8 mg/dL (0.55-1.3)
[2022-08-03 18:33] LABS: BILIRUBIN,TOTAL 0.6 mg/dL (0.2-1)
[2022-08-03] MEDS ORDERED: CEFTRIAXONE 1,000 MG in DEXTROSE 5%-WATER - 50 ML IVPB ONE (19:40)
[2022-08-03] MEDS ORDERED: CEFTRIAXONE 1 GM/50 ML BAG ONE (20:45)
[2022-08-03] MEDS ORDERED: APIXABAN 5 MG TABLET ONE (21:46)
[2022-08-03] MEDS: APIXABAN 5 MG TABLET PO SCH (21:50)
[2022-08-03] MEDS: METOPROLOL TARTRATE 50 MG TABLET (FP) PO SCH (23:40)
[2022-08-04 07:53] LABS: HEMATOCRIT 38.6 % (32.4-45.2); MCH 29.9 pg (25.7-33.7); MCHC 33.6 g/dl (32.0-36.0); RBC 4.34 M/mm3 (3.60-5.2); WHITE BLOOD COUNT 3.3 K/mm3 (4.0-10.0)
[2022-08-04 07:54] LABS: BASO % 0.9 % (0-2.0); EOS % 3.1 % (0-4.5); LYMPH % 45.3 % (8-40); MEAN PLT VOLUME 11.4 fl (7.5-11.1); MONO % 15.4 % (3.8-10.2); NEUT % 35.3 % (42.8-82.8); PLATELET COUNT 236 10^3/uL (134-434); RDW 14.6 % (11.6-15.6)
[2022-08-04 08:09] LABS: POTASSIUM 4.6 mmol/L (3.5-5.1)
[2022-08-04 08:15] LABS: ALBUMIN 3.3 g/dl (3.4-5.0); CALCIUM 9.1 mg/dL (8.5-10.1)
[2022-08-04 08:16] LABS: BLOOD UREA NITROGEN 5.9 mg/dL (7-18); MAGNESIUM 1.8 mg/dL (1.8-2.4)
[2022-08-04 08:18] LABS: CREATININE 0.6 mg/dL (0.55-1.3)
[2022-08-04 08:21] LABS: BILIRUBIN,TOTAL 0.5 mg/dL (0.2-1); TOT PROT 6.3 g/dl (6.4-8.2)
[2022-08-04] MEDS: APIXABAN 5 MG TABLET PO SCH ×2 (10:18→21:18)
[2022-08-04] MEDS: METOPROLOL TARTRATE 50 MG TABLET (FP) PO SCH ×2 (10:18→21:18)
[2022-08-04] MEDS: FUROSEMIDE 20 MG TABLET (FP) PO SCH (10:19)
[2022-08-04] MEDS: CEFTRIAXONE 1 GM in DEXTROSE 5%-WATER - 50 ML IVPB SCH (10:19)
[2022-08-04] MEDS: PANTOPRAZOLE 40 MG TABLET PO SCH (10:19)
[2022-08-04] MEDS: SERTRALINE HCL 50 MG TABLET (FP) PO SCH (10:19)
[2022-08-04] MEDS: ROSUVASTATIN CA 5 MG TABLET PO SCH (21:18)
[2022-08-05 08:19] LABS: BASO % 0.9 % (0-2.0); EOS % 2.8 % (0-4.5); HEMATOCRIT 39.1 % (32.4-45.2); HEMOGLOBIN 13.2 GM/dL (10.7-15.3); LYMPH % 40.5 % (8-40); MCH 30.2 pg (25.7-33.7); MCHC 33.8 g/dl (32.0-36.0); MEAN CELL VOLUME 89.3 fl (80-96); MEAN PLT VOLUME 11.3 fl (7.5-11.1); MONO % 11.2 % (3.8-10.2); NEUT % 44.6 % (42.8-82.8); PLATELET COUNT 240 10^3/uL (134-434); RBC 4.38 M/mm3 (3.60-5.2); RDW 14.4 % (11.6-15.6); WHITE BLOOD COUNT 3.4 K/mm3 (4.0-10.0)
[2022-08-05] MEDS: CEFTRIAXONE 1 GM in DEXTROSE 5%-WATER - 50 ML IVPB SCH (09:59)
[2022-08-05] MEDS: SERTRALINE HCL 50 MG TABLET (FP) PO SCH (09:59)
[2022-08-05] MEDS: PANTOPRAZOLE 40 MG TABLET PO SCH (10:00)
[2022-08-05] MEDS: METOPROLOL TARTRATE 50 MG TABLET (FP) PO SCH ×2 (10:00→21:16)
[2022-08-05] MEDS: APIXABAN 5 MG TABLET PO SCH ×2 (10:00→21:16)
[2022-08-05] MEDS: FUROSEMIDE 20 MG TABLET (FP) PO SCH (10:00)
[2022-08-05 16:36] VITALS: BMI 32.1
[2022-08-05] MEDS: ROSUVASTATIN CA 5 MG TABLET PO SCH (21:16)
[2022-08-06] MEDS: METOPROLOL TARTRATE 50 MG TABLET (FP) PO SCH (09:46)
[2022-08-06] MEDS: APIXABAN 5 MG TABLET PO SCH (09:46)
[2022-08-06] MEDS: SERTRALINE HCL 50 MG TABLET (FP) PO SCH (09:47)
[2022-08-06] MEDS: CEFTRIAXONE 1 GM in DEXTROSE 5%-WATER - 50 ML IVPB SCH (09:47)
[2022-08-06] MEDS: PANTOPRAZOLE 40 MG TABLET PO SCH (09:47)
[2022-08-06] MEDS: FUROSEMIDE 20 MG TABLET (FP) PO SCH (09:47)
[2022-08-06] MEDS ORDERED: ACETAMINOPHEN 500 MG TABLET (FP) PO ONE ×2 (11:23→12:30)
[2022-08-06 15:15] VITALS: BP 100/67; PULSE 67; RESP 20; TEMP 98
== END 2022-08-06 16:41 | disposition home health service (06) ==
LOC: JER 16:46 → JERBED 19:57 → J4W 22:37
PROVIDERS: ADMIT Internal Medicine; ATTEND Family Medicine
PROC: 3E033NZ Introduction of Analgesics, Hypnotics, Sedatives into Peripheral Vein, Percutaneous Approach (ICD-10-PCS; principal; 2022-08-03)
PROC: 3E03329 Introduction of Other Anti-infective into Peripheral Vein, Percutaneous Approach (ICD-10-PCS; 2022-08-03)
PROC: 3E0337Z Introduction of Electrolytic and Water Balance Substance into Peripheral Vein, Percutaneous Approach (ICD-10-PCS; 2022-08-03)
DX: N39.0 Urinary tract infection, site not specified (principal); E78.5 Hyperlipidemia, unspecified; I48.91 Unspecified atrial fibrillation; Z79.01 Long term (current) use of anticoagulants; I11.0 Hypertensive heart disease with heart failure; I50.9 Heart failure, unspecified; Z96.653 Presence of artificial knee joint, bilateral; K59.00 Constipation, unspecified; R07.9 Chest pain, unspecified; E66.8 Other obesity; Z68.32 Body mass index [BMI] 32.0-32.9, adult
CPT/HCPCS: 0241U-QW; 36415; 71045-TC-FY; 80053; 81003; 83690; 83735; 84443; 84484; 85025; 87040; 87086; 93005; 93010; 96361; 96365; 96368; 96375; 97116-GP; 97162-GP; 99285-25; G0378

== ENCOUNTER 2022-10-12 06:15 | Inpatient (IN) | payer OTHER ==
[2022-10-02 09:50] VITALS: BMI 31.9
[2022-10-12] MEDS ORDERED: ceFAZolin SODIUM 1 GM VIAL ONE (06:58)
[2022-10-12] MEDS ORDERED: KETOROLAC TROMETHAMINE 30 MG/1 ML VIAL ONE (06:58)
[2022-10-12] MEDS ORDERED: ONDANSETRON 4 MG/2 ML VIAL ONE (06:58)
[2022-10-12] MEDS ORDERED: PROPOFOL 20 ML ONE ×3 (06:58→10:08)
[2022-10-12] MEDS ORDERED: DEXAMETHASONE SOD PHOSPHATE 4 MG/1 ML VIAL ONE (06:58)
[2022-10-12] MEDS ORDERED: MIDAZOLAM HCL 2 MG/2 ML SINGLE DOSE VIAL ONE (06:59)
[2022-10-12] MEDS ORDERED: ROCURONIUM BROMIDE 50 MG/5 ML SYRINGE ONE (06:59)
[2022-10-12] MEDS ORDERED: CEFAZOLIN SODIUM 2 GM in DEXTROSE 5%-WATER - 100 ML IVPB ONE (07:00)
[2022-10-12] MEDS ORDERED: VANCOMYCIN 1,000 MG VIAL (RESTRICTED TO ID ONLY) ONE ×2 (07:07→07:56)
[2022-10-12] MEDS ORDERED: BUPIVACAINE HCL/PF 0.5% (5MG/ML) 10 ML VIAL ONE (07:29)
[2022-10-12] MEDS ORDERED: BUPIVACAINE LIPOSOME/PF (EXPAREL) 266 MG/20 ML VIAL ONE (07:29)
[2022-10-12] MEDS ORDERED: TRANEXAMIC ACID 1000 MG/10 ML VIAL IVPUSH ONE (07:30)
[2022-10-12] MEDS ORDERED: VANCOMYCIN 1 GM/200 ML PREMIX BAG (RESTRICTED TO ID ONLY) IVPB ONE ×2 (07:32→20:30)
[2022-10-12] MEDS ORDERED: TRANEXAMIC ACID 1000 MG/10 ML VIAL ONE (07:56)
[2022-10-12] MEDS ORDERED: GLYCOPYRROLATE 0.2 MG/1 ML VIAL ONE ×3 (08:07→09:48)
[2022-10-12] MEDS ORDERED: NEOSTIGMINE METHYLSULFATE 0.5 MG/1 ML - 10 ML MDV ONE (09:48)
[2022-10-12] MEDS ORDERED: MAG HYDROX/AL HYDROX/SIMETH 30 ML UNIT-DOSE CUP PO PRN (10:33)
[2022-10-12] MEDS ORDERED: ONDANSETRON 4 MG/2 ML VIAL IVPUSH PRN (10:33)
[2022-10-12] MEDS ORDERED: MAGNESIUM HYDROX 2400MG/30ML ORAL SUSPENSION 30 ML CUP PO PRN (10:33)
[2022-10-12] MEDS ORDERED: PROMETHAZINE HCL 25 MG/1 ML VIAL IVPB PRN (10:48)
[2022-10-12] MEDS ORDERED: oxyCODONE HCL 5 MG TABLET PO PRN ×2 (10:48)
[2022-10-12] MEDS ORDERED: ACETAMINOPHEN 500 MG TABLET (FP) PO SCH (11:00)
[2022-10-12] MEDS ORDERED: ACETAMINOPHEN 500 MG TABLET (FP) ONE (11:25)
[2022-10-12] MEDS: ACETAMINOPHEN 500 MG TABLET (FP) PO SCH ×2 (12:00→17:30)
[2022-10-12] MEDS: CEFAZOLIN SODIUM 2 GM in DEXTROSE 5%-WATER 100 ML IVPB SCH ×2 (17:25→20:30)
[2022-10-12] MEDS: METOPROLOL TARTRATE 50 MG TABLET (FP) PO SCH (21:13)
[2022-10-12] MEDS: SENNOSIDES/DOCUSATE COMBO (SENNA PLUS) TABLET (UD) PO SCH (21:14)
[2022-10-12] MEDS ORDERED: METOPROLOL TARTRATE 50 MG TABLET (FP) PO SCH (22:00)
[2022-10-13] MEDS: ACETAMINOPHEN 500 MG TABLET (FP) PO SCH ×2 (00:23→06:06)
[2022-10-13] MEDS: CEFAZOLIN SODIUM 2 GM in DEXTROSE 5%-WATER 100 ML IVPB SCH (02:23)
[2022-10-13] MEDS ORDERED: ASPIRIN 325 MG TABLET PO SCH (08:00)
[2022-10-13 08:47] LABS: HEMATOCRIT 36.8 % (32.4-45.2); HEMOGLOBIN 11.7 G/dL (10.7-15.3); MCH 29.9 pg (25.7-33.7); MCHC 31.7 g/dl (32.0-36.0); PLATELET COUNT 283.3 10^3/uL (134-434); RBC 3.91 10^6/uL (3.60-5.2); RDW 15.2 % (11.6-15.6); WHITE BLOOD COUNT 8.2 10^3/uL (4.0-10.8)
[2022-10-13] MEDS ORDERED: PANTOPRAZOLE 40 MG TABLET PO SCH (10:00)
[2022-10-13] MEDS ORDERED: MULTIVITAMINS (DAILY MVI) TABLET (FP) PO SCH (10:00)
[2022-10-13] MEDS ORDERED: SERTRALINE HCL 50 MG TABLET (FP) PO SCH (10:00)
[2022-10-13 10:15] LABS: BLOOD UREA NITROGEN 12.8 mg/dl (7-18); CALCIUM 8.7 mg/dl (8.5-10.1); CREATININE 0.7 mg/dl (0.6-1.3); POTASSIUM 4.4 mmol/L (3.5-5.1)
[2022-10-13] MEDS: SENNOSIDES/DOCUSATE COMBO (SENNA PLUS) TABLET (UD) PO SCH (10:16)
[2022-10-13] MEDS: METOPROLOL TARTRATE 50 MG TABLET (FP) PO SCH (10:19)
[2022-10-13 10:54] VITALS: BP 140/74; PULSE 76; RESP 18; TEMP 98.3
[2022-10-13] MEDS ORDERED: ROSUVASTATIN CA 5 MG TABLET PO SCH (22:00)
== END 2022-10-13 13:30 | disposition home or self-care (01) | DRG 483 ==
LOC: FM/S 06:15 → EDSTATUS 07:30 → FM/S 12:21
PROVIDERS: ATTEND Orthopaedic Surgery
PROC: 0LM40ZZ Reattachment of Left Upper Arm Tendon, Open Approach (ICD-10-PCS; 2022-10-12)
PROC: 0RRK00Z Replacement of Left Shoulder Joint with Reverse Ball and Socket Synthetic Substitute, Open Approach (ICD-10-PCS; principal; 2022-10-12 08:18)
DX: M19.012 Primary osteoarthritis, left shoulder (principal); M75.22 Bicipital tendinitis, left shoulder; I10 Essential (primary) hypertension; E78.00 Pure hypercholesterolemia, unspecified; M06.9 Rheumatoid arthritis, unspecified; F32.A Depression, unspecified; I48.91 Unspecified atrial fibrillation
CPT/HCPCS: 36415; 73030-TC-LT-FY; 80048; 85027; 88304-TC; 88305-TC; 88311-TC; 94760; 97116-GP; 97162-GP; C1713; C1776

== ENCOUNTER 2022-11-24 11:12 | Emergency (ER) | payer OTHER ==
[2022-11-24 11:18] VITALS: RESP 18; BMI 31.9
[2022-11-24] MEDS ORDERED: ACETAMINOPHEN 1000 MG/100 ML BAG IVPB ONE (12:30)
[2022-11-24] MEDS ORDERED: ACETAMINOPHEN INJECTION 100 ML IVPB ONE (13:53)
[2022-11-24 14:33] LABS: BASO % 0.9 % (0-2.0); EOS % 3.1 % (0-4.5); HEMATOCRIT 40.9 % (32.4-45.2); HEMOGLOBIN 12.8 GM/dL (10.7-15.3); LYMPH % 34.6 % (8-40); MCH 28.3 pg (25.7-33.7); MCHC 31.2 g/dl (32.0-36.0); MEAN CELL VOLUME 90.6 fl (80-96); MEAN PLT VOLUME 11.1 fl (7.5-11.1); MONO % 9.4 % (3.8-10.2); PLATELET COUNT 292 10^3/uL (134-434); RBC 4.52 M/mm3 (3.60-5.2); RDW 14.7 % (11.6-15.6); WHITE BLOOD COUNT 4.3 K/mm3 (4.0-10.0)
[2022-11-24 14:37] LABS: INR 1.68 (0.83-1.09); PROTHROMBIN TIME (PATIENT) 19.4 SEC (9.7-13.0)
[2022-11-24 14:39] LABS: ACTIVATED PTT 35.1 SECONDS (25.2-36.5)
[2022-11-24 14:58] LABS: POTASSIUM 5.4 mmol/L (3.5-5.1)
[2022-11-24 15:00] LABS: BLOOD UREA NITROGEN 12.2 mg/dL (7-18); CALCIUM 8.7 mg/dL (8.5-10.1)
[2022-11-24 15:01] LABS: ALBUMIN 3.6 g/dl (3.4-5.0)
[2022-11-24 15:04] LABS: CREATININE 0.7 mg/dL (0.55-1.3)
[2022-11-24 15:05] LABS: BILIRUBIN,TOTAL 0.5 mg/dL (0.2-1); TOT PROT 6.9 g/dl (6.4-8.2)
[2022-11-24] MEDS ORDERED: KETOROLAC TROMETHAMINE 15 MG/ML VIAL IVPUSH ONE (17:31)
[2022-11-24] MEDS ORDERED: KETOROLAC TROMETHAMINE 15 MG/ML VIAL ONE (17:34)
[2022-11-24 17:55] VITALS: BP 148/88; PULSE 68; TEMP 98
== END 2022-11-24 18:49 | disposition home or self-care (01) ==
LOC: JER 11:12
PROC: 3E033NZ Introduction of Analgesics, Hypnotics, Sedatives into Peripheral Vein, Percutaneous Approach (ICD-10-PCS; principal; 2022-11-24)
PROC: 3E0333Z Introduction of Anti-inflammatory into Peripheral Vein, Percutaneous Approach (ICD-10-PCS; 2022-11-24)
DX: M25.512 Pain in left shoulder (principal); R22.32 Localized swelling, mass and lump, left upper limb; R07.89 Other chest pain; Z96.612 Presence of left artificial shoulder joint
CPT/HCPCS: 36415; 71250-TC; 73030-TC-LT-FY; 80053; 83880; 84484; 85025; 85610; 85730; 87040; 93005; 93010; 93971; 96374; 96375; 99285-25

== ENCOUNTER 2023-06-19 12:37 | Emergency (ER) | payer OTHER ==
[2023-06-19 12:52] VITALS: TEMP 97.9; BMI 30.7
[2023-06-19 13:25] VITALS: PULSE 64; RESP 18
[2023-06-19] MEDS ORDERED: MECLIZINE HCL 25 MG TABLET (FP) ONE (13:45)
[2023-06-19] MEDS ORDERED: METOCLOPRAMIDE HCL INJECTION 10 MG/2 ML VIAL ONE (13:45)
[2023-06-19] MEDS: SODIUM CHLORIDE 0.9% 500 ML INFUS.BAG IV ONE (14:13)
[2023-06-19] MEDS: MECLIZINE HCL 25 MG TABLET (FP) PO ONE (14:13)
[2023-06-19] MEDS: METOCLOPRAMIDE HCL INJECTION 10 MG/2 ML VIAL IVPB ONE (14:13)
[2023-06-19 14:17] LABS: BASO % 1.1 % (0-2.0); EOS % 2.9 % (0-4.5); HEMATOCRIT 44.7 % (32.4-45.2); HEMOGLOBIN 14.7 GM/dL (10.7-15.3); LYMPH % 28.8 % (8-40); MCH 29.5 pg (25.7-33.7); MCHC 32.8 g/dl (32.0-36.0); MEAN CELL VOLUME 89.7 fl (80-96); MEAN PLT VOLUME 10.1 fl (7.5-11.1); MONO % 9.5 % (3.8-10.2); NEUT % 57.7 % (42.8-82.8); PLATELET COUNT 320 10^3/uL (134-434); RBC 4.99 M/mm3 (3.60-5.2); RDW 14.1 % (11.6-15.6); WHITE BLOOD COUNT 4.1 K/mm3 (4.0-10.0)
[2023-06-19 14:23] LABS: INR 1.61 (0.83-1.09); PROTHROMBIN TIME (PATIENT) 18.6 SEC (9.7-13.0)
[2023-06-19 14:41] LABS: POTASSIUM 4.8 mmol/L (3.5-5.1)
[2023-06-19 14:42] LABS: CALCIUM 8.8 mg/dL (8.5-10.1)
[2023-06-19 14:43] LABS: ALBUMIN 3.6 g/dl (3.4-5.0)
[2023-06-19 14:44] LABS: BLOOD UREA NITROGEN 13.3 mg/dL (7-18)
[2023-06-19 14:46] LABS: CREATININE 0.7 mg/dL (0.55-1.3)
[2023-06-19 14:48] LABS: TOT PROT 7.1 g/dl (6.4-8.2)
[2023-06-19 14:49] LABS: BILIRUBIN,TOTAL 0.4 mg/dL (0.2-1)
[2023-06-19 15:05] VITALS: BP 159/91
[2023-06-19] MEDS ORDERED: ACETAMINOPHEN INJECTION 100 ML IVPB ONE (15:13)
[2023-06-19] MEDS: ACETAMINOPHEN 1000 MG/100 ML BAG IVPB ONE (15:17)
[2023-06-19 15:52] LABS: EPI CELLS 2 /uL (0-25.1); HYALINE CASTS 0 /uL (0-3.1); PH,URINE 6.5 (5.0-8.0); URINE APPEARANCE CLEAR; URINE BACTERIA 29 /uL (0-1359); URINE BILIRUBIN NEGATIVE (NEGATIVE); URINE COLOR YELLOW; URINE GLUCOSE (UA) NEGATIVE (NEGATIVE); URINE KETONE NEGATIVE (NEGATIVE); URINE LEUK ESTERASE TRACE (NEGATIVE); URINE NITRITE NEGATIVE (NEGATIVE); URINE PROTEIN NEGATIVE (NEGATIVE); URINE RBC 11 /uL (0-23.9); URINE WBC 4 /uL (0-25.8)
== END 2023-06-19 17:25 | disposition home or self-care (01) ==
LOC: JER 12:37
PROC: 3E033NZ Introduction of Analgesics, Hypnotics, Sedatives into Peripheral Vein, Percutaneous Approach (ICD-10-PCS; principal; 2023-06-19)
PROC: 3E033GC Introduction of Other Therapeutic Substance into Peripheral Vein, Percutaneous Approach (ICD-10-PCS; 2023-06-19)
DX: R51.9 Headache, unspecified (principal); R29.810 Facial weakness
CPT/HCPCS: 36415; 70450-TC; 70496-TC; 70498-TC; 80053; 80061; 81003; 82550; 83036; 84484; 85025; 85610; 85730; 86850; 86900; 86901; 93005; 93010; 99284-25; J0131

== ENCOUNTER 2024-01-23 14:04 | Emergency (ER) | payer OTHER ==
[2024-01-23 14:08] VITALS: BP 143/81; PULSE 69; RESP 18; TEMP 98.4; BMI 31.0
[2024-01-23] MEDS ORDERED: ACETAMINOPHEN 500 MG TABLET (FP) ONE (14:53)
[2024-01-23] MEDS: ACETAMINOPHEN 500 MG TABLET (FP) PO ONE (14:58)
== END 2024-01-23 15:09 | disposition home or self-care (01) ==
LOC: JER 14:04
DX: M54.41 Lumbago with sciatica, right side (principal); M79.604 Pain in right leg
CPT/HCPCS: 73560-TC-RT-FY; 99283-25

== ENCOUNTER 2024-03-30 13:27 | Observation (INO) | payer OTHER ==
[2024-03-30 13:37] VITALS: BMI 34.4
[2024-03-30 14:57] LABS: BASO % 1.2 % (0-2.0); EOS % 3.3 % (0-4.5); HEMOGLOBIN 13.9 GM/dL (10.7-15.3); LYMPH % 22.9 % (8-40); MCH 27.9 pg (25.7-33.7); MCHC 31.6 g/dl (32.0-36.0); MEAN CELL VOLUME 88.1 fl (80-96); MEAN PLT VOLUME 10.2 fl (7.5-11.1); MONO % 8.9 % (3.8-10.2); NEUT % 63.7 % (42.8-82.8); PLATELET COUNT 358 10^3/uL (134-434); RBC 4.99 M/mm3 (3.60-5.2); RDW 15.7 % (11.6-15.6)
[2024-03-30 15:09] LABS: INR 1.68 (0.83-1.09); PROTHROMBIN TIME (PATIENT) 18.7 SEC (9.7-13.0)
[2024-03-30 15:12] LABS: ACTIVATED PTT 37.6 SECONDS (25.2-36.5)
[2024-03-30 15:26] LABS: POTASSIUM 4.5 mmol/L (3.5-5.1)
[2024-03-30 15:27] LABS: CALCIUM 9.3 mg/dL (8.5-10.1)
[2024-03-30 15:28] LABS: ALBUMIN 3.8 g/dl (3.4-5.0); BLOOD UREA NITROGEN 18.2 mg/dL (7-18)
[2024-03-30 15:31] LABS: CREATININE 0.8 mg/dL (0.55-1.3)
[2024-03-30 15:33] LABS: BILIRUBIN,TOTAL 0.5 mg/dL (0.2-1); TOT PROT 7.2 g/dl (6.4-8.2)
[2024-03-30 15:36] LABS: N-TERMINAL BNP 2485.1 pg/ml (5-450)
[2024-03-30] MEDS ORDERED: ACETAMINOPHEN INJECTION 100 ML ONE (16:03)
[2024-03-30] MEDS: ACETAMINOPHEN 1000 MG/100 ML BAG IVPB ONE (16:10)
[2024-03-30 16:39] LABS: HIV INTERPRETATION NEGATIVE (NEGATIVE)
[2024-03-30] MEDS ORDERED: APIXABAN 5 MG TABLET ONE (23:19)
[2024-03-30] MEDS: APIXABAN 5 MG TABLET PO SCH (23:28)
[2024-03-31] MEDS: METOPROLOL TARTRATE 50 MG TABLET (FP) PO SCH (09:43)
[2024-03-31] MEDS: HYDROCHLOROTHIAZIDE 25 MG TABLET (FP) PO SCH (09:43)
[2024-03-31 11:54] LABS: BASO % 1.1 % (0-2.0); EOS % 2.7 % (0-4.5); HEMATOCRIT 45.5 % (32.4-45.2); HEMOGLOBIN 14.6 GM/dL (10.7-15.3); MCH 28.6 pg (25.7-33.7); MCHC 32.1 g/dl (32.0-36.0); MEAN CELL VOLUME 88.9 fl (80-96); MEAN PLT VOLUME 10.5 fl (7.5-11.1); MONO % 8.6 % (3.8-10.2); NEUT % 56.6 % (42.8-82.8); PLATELET COUNT 382 10^3/uL (134-434); RBC 5.12 M/mm3 (3.60-5.2); WHITE BLOOD COUNT 4.1 K/mm3 (4.0-10.0)
[2024-03-31 12:12] LABS: POTASSIUM 4.1 mmol/L (3.5-5.1)
[2024-03-31 12:15] LABS: CALCIUM 9.3 mg/dL (8.5-10.1)
[2024-03-31 12:16] LABS: BLOOD UREA NITROGEN 12.8 mg/dL (7-18)
[2024-03-31 12:19] LABS: CREATININE 0.7 mg/dL (0.55-1.3)
[2024-03-31] MEDS: FUROSEMIDE 40 MG/4 ML INJECTABLE VIAL IVPUSH SCH (17:05)
[2024-03-31] MEDS: ROSUVASTATIN CA 5 MG TABLET PO SCH (21:04)
[2024-04-01 08:05] LABS: BASO % 1.1 % (0-2.0); HEMATOCRIT 46.6 % (32.4-45.2); HEMOGLOBIN 14.7 GM/dL (10.7-15.3); LYMPH % 31.3 % (8-40); MCH 28.3 pg (25.7-33.7); MCHC 31.6 g/dl (32.0-36.0); MEAN CELL VOLUME 89.3 fl (80-96); MEAN PLT VOLUME 10.3 fl (7.5-11.1); NEUT % 54.6 % (42.8-82.8); PLATELET COUNT 332 10^3/uL (134-434); RBC 5.21 M/mm3 (3.60-5.2); WHITE BLOOD COUNT 3.9 K/mm3 (4.0-10.0)
[2024-04-01 08:37] LABS: CALCIUM 9.3 mg/dL (8.5-10.1)
[2024-04-01 08:38] LABS: BLOOD UREA NITROGEN 13.8 mg/dL (7-18)
[2024-04-01 08:41] LABS: CREATININE 0.8 mg/dL (0.55-1.3)
[2024-04-01 08:42] LABS: BILIRUBIN,TOTAL 0.8 mg/dL (0.2-1); TOT PROT 7.5 g/dl (6.4-8.2)
[2024-04-03 08:29] LABS: BASO % 0.9 % (0-2.0); EOS % 2.5 % (0-4.5); HEMATOCRIT 50.2 % (32.4-45.2); HEMOGLOBIN 16.4 GM/dL (10.7-15.3); LYMPH % 34.4 % (8-40); MCH 28.9 pg (25.7-33.7); MCHC 32.8 g/dl (32.0-36.0); MEAN PLT VOLUME 10.7 fl (7.5-11.1); MONO % 9.2 % (3.8-10.2); PLATELET COUNT 431 10^3/uL (134-434); RDW 15.2 % (11.6-15.6); WHITE BLOOD COUNT 4.4 K/mm3 (4.0-10.0)
[2024-04-03 08:43] LABS: POTASSIUM 4.3 mmol/L (3.5-5.1)
[2024-04-03 08:59] LABS: BLOOD UREA NITROGEN 21.6 mg/dL (7-18)
[2024-04-03 09:02] LABS: CALCIUM 9.5 mg/dL (8.5-10.1)
[2024-04-03 09:04] LABS: BILIRUBIN,TOTAL 0.6 mg/dL (0.2-1); TOT PROT 7.9 g/dl (6.4-8.2)
[2024-04-04] MEDS ORDERED: REGADENOSON 0.4 MG/5 ML PRE-FILLED SYRINGE IVPUSH ONE (10:39)
[2024-04-04] MEDS: REGADENOSON 0.4 MG/5 ML PRE-FILLED SYRINGE IVPUSH ONE (10:50)
[2024-04-04 13:28] VITALS: RESP 18
[2024-04-04 18:38] VITALS: BP 134/75; PULSE 85; TEMP 97.5
== END 2024-04-04 18:53 | disposition home or self-care (01) ==
LOC: JER 13:27 → JERBED 17:58 → J4W 03-31 07:59
PROVIDERS: ADMIT Internal Medicine; ATTEND Family Medicine
PROC: 3E033NZ Introduction of Analgesics, Hypnotics, Sedatives into Peripheral Vein, Percutaneous Approach (ICD-10-PCS; principal; 2024-03-30)
PROC: 3E033GC Introduction of Other Therapeutic Substance into Peripheral Vein, Percutaneous Approach (ICD-10-PCS; 2024-03-30)
DX: I11.0 Hypertensive heart disease with heart failure (principal); I48.91 Unspecified atrial fibrillation; N18.9 Chronic kidney disease, unspecified; E78.5 Hyperlipidemia, unspecified; M19.90 Unspecified osteoarthritis, unspecified site; E66.9 Obesity, unspecified; Z86.73 Personal history of transient ischemic attack (TIA), and cerebral infarction without residual deficits
CPT/HCPCS: 36415; 71045-TC-FY; 78452-TC; 80048; 80053; 83880; 84443; 84484; 85025; 85610; 85730; 86803; 87389; 93005; 93010; 93017; 93306-TC; 96374; 96375; 99285-25; A9502; G0378; J0131; J2785